=== PATIENT | male | born 1945 | race Caucasian/White ===

== ENCOUNTER → 2016-03-05 07:35 | Day surgery (SDC) | payer MEDICARE, BC ==
[~2016-03-05 07:35] MED LIST: Acetaminophen TAB* 325 MG PO PRN; Buffered Lidocaine 1% SYR 3ML* 3 ML/SYR SYRINGE INTRADERM ONE; Buffered Lidocaine 1% SYR 3ML* 3 ML/SYR SYRINGE ONE; Cyclopentolate 1% OPTH.SOL* 2 ML BTL ONE; Flurbiprofen 0.03% OPTH.SOL* 2.5 ML BTL ONE; Lidocaine 1% MPF* 2 ML VIAL ONE; Lidocaine 2% EPI 1:200000 MPF* 20 ML VIAL ONE; Midazolam* 1 MG/ML 2 ML VIAL (2 MG) ONE; Neomycin/Polymy/Dex OPTH.SUSP* MAXITROL 0.1% 5 ML ONE; Phenylephrine 2.5% OPTH.SOL* 2 ML BTL ONE; Povidone Iodine 5% OPTH* 30 ML BTL ONE; Proparacaine 0.5% OPHTH.SOL* 15 ML BTL ONE; acetaZOLAMIDE TAB* 250 MG ONE; fentaNYL* 50 MCG/ML 2 ML VIAL (100 MCG VIAL) ONE
[2016-03-05 10:55] VITALS: BP 115/65
--- NOTE | 2016-03-05 12:16 | OP ---
DATE OF OPERATION: 03/05/2016 - [facility] DATE OF : 1945. SURGEON: Sj Avelar M.D. PREOPERATIVE DIAGNOSIS: Cataract right eye. POSTOPERATIVE DIAGNOSIS: Cataract right eye. OPERATIVE PROCEDURE: Phacoemulsification right eye with IOL. DESCRIPTION OF PROCEDURE: The patient was brought to the operating room after being given 1/2% Alcaine with epinephrine drops in the preoperative area. The eye was prepped and draped in the usual sterile fashion. Sterile drape and eyelid speculum were placed. Again, topical 1/2% Alcaine with epinephrine was given. A paracentesis incision was made at the 9 o'clock position with the No.75 blade. Clear cornea incision 2.2 x 2.2-mm was created at the 12 o'clock position starting at the anterior limbus using the 2.2-mm keratome. The anterior chamber was irrigated with 0.4 mL of 1% non-preservative intracameral lidocaine and filled with DisCoVisc. A capsulorrhexis was completed using the cystotome and the Utrata forceps. Hydrodissection was performed with balanced salt solution. The lens nucleus was removed with the Phacoemulsification handpiece without incident. Cortex was removed with the irrigation-aspiration handpiece. The capsular bag was re-inflated using DisCoVisc and an [id number] implant was inserted with the shooter. The irrigation-aspiration handpiece was used to remove all residual DisCoVisc. The eye was refilled with balanced salt solution and the wound checked and found to be watertight. Topical Maxitrol drops were given. [id number]/[facility] [place] #: [id number] [facility] HOSPITALDusty
== END | disposition home or self-care (01) ==
LOC: OREAST 07:35
PROVIDERS: ATTEND Specialist
DX: H25.811 Combined forms of age-related cataract, right eye (principal); E11.3293 Type 2 diabetes mellitus with mild nonproliferative diabetic retinopathy without macular edema, bilateral; Z87.891 Personal history of nicotine dependence
CPT/HCPCS: A9270-GY; J2250; J3010; V2632

== ENCOUNTER → 2016-03-12 08:28 | Day surgery (SDC) | payer MEDICARE, BC ==
[~2016-03-12 08:28] MED LIST changes: -Acetaminophen TAB* 325 MG PO PRN; +Lidocaine 2% PF * 5 ML VIAL ONE; -Midazolam* 1 MG/ML 2 ML VIAL (2 MG) ONE; +Propofol* 10 MG/ML 20 ML BTL IV PUSH ONE; -fentaNYL* 50 MCG/ML 2 ML VIAL (100 MCG VIAL) ONE
[2016-03-12 11:32] VITALS: BP 117/46
--- NOTE | 2016-03-12 11:53 | OP ---
DATE OF OPERATION: 03/12/2016. DATE OF : 1945. SURGEON: Sj Avelar M.D. PREOPERATIVE DIAGNOSIS: Cataract left eye. POSTOPERATIVE DIAGNOSIS: Cataract left eye. OPERATIVE PROCEDURE: Phacoemulsification left eye with IOL. PROCEDURE: The patient was brought to the operating room after being given 1/2% Alcaine with epinep hrine drops in the preoperative area. The eye was prepped and draped in the usual sterile fashion. Sterile drape and eyelid speculum were placed. Again, topical 1/2% Alcaine with epinephrine was gi adam. A paracentesis incision was made at the 3 o'clock position with the No.75 blade. Clear cornea incision 2.2 x 2.2-mm was created at the 6 o'clock position starting at the anterior limbus using t he 2.2-mm keratome. The anterior chamber was irrigated with 0.4 mL of 1% non-preservative intracame ral lidocaine and filled with DisCoVisc. A capsulorrhexis was completed using the cystotome and the Utrata forceps. Hydrodissection was performed with balanced salt solution. The lens nucleus was re moved with the Phacoemulsification handpiece without incident. Cortex was removed with the irrigati on-aspiration handpiece. The capsular bag was re-inflated using DisCoVisc and an [id number] implant was inserted with the shooter. The irrigation-aspiration handpiece was used to remove all residual DisCoVisc. The eye was refilled with balanced salt solution and the wound checked and found to be w atertight. Topical Maxitrol drops were given. [id number]/[facility] #: [id number]
== END | disposition home or self-care (01) ==
LOC: OREAST 08:28
PROVIDERS: ATTEND Specialist
DX: H25.812 Combined forms of age-related cataract, left eye (principal); E11.3293 Type 2 diabetes mellitus with mild nonproliferative diabetic retinopathy without macular edema, bilateral; I25.10 Atherosclerotic heart disease of native coronary artery without angina pectoris; Z95.818 Presence of other cardiac implants and grafts; Z87.891 Personal history of nicotine dependence; I48.2 Chronic atrial fibrillation; J44.9 Chronic obstructive pulmonary disease, unspecified; G47.33 Obstructive sleep apnea (adult) (pediatric); N18.9 Chronic kidney disease, unspecified; D64.9 Anemia, unspecified
CPT/HCPCS: A9270-GY; J2704; V2632

== ENCOUNTER 2016-05-07 12:43 | Emergency (ER) | payer MEDICARE, BC ==
[2016-05-07 12:54] VITALS: BP 126/64
[2016-05-07] MEDS ORDERED: Tetan/Diph/Pertus SYR(Tdap)* 0.5 ML SYR(BOOSTRIX) use SYR IM ONE (13:04)
--- NOTE | 2016-05-07 13:09 | ED ---
Head Injury - HPI Summary HPI Summary: 70 y/o male here c/o head contusion after an accidental fall. He reports that he was in a sitting position and he bend over to sisal picker something from the floor when he loss balance and he fell forward landing in his right side of the body. Now he is complaining of abrasions and gauze bump in the right side of the forehead. Also complaints of abrasion in the tight forearm. He denies any LOC. He denies any neck pain. He denies any visual changes, CP, palpitations. He has no other complaints. - History Of Current Complaint Chief Complaint: UCTrauma Stated Complaint: HEAD INJURY Time Seen by Provider: 05/07/16 12:53 Hx Obtained From: Patient Mechanism Of Injury: Fall From Height Of: - Fall from a sitting possition bending forward to sisal picker something from the floor. Onset/Duration: Started Hours Ago Onset of Pain: Immediate Severity Currently: Mild Severity Initially: Mild Pain Scale Used: 0-10 Numeric - 1/10 Location of Head Injury: Frontal - Right forntal areea Character: Sharp, Other: - Burning pain Aggravating Factor(s): Other: - None Alleviating Factor(s): Other: - None Associated Signs And Symptoms: Negative Anticoagulant Therapy: ASA - Allergies/Home Medications Allergies/Adverse Reactions: Allergies Allergy/AdvReac Type Severity Reaction Status Date / Time Clarithromycin [From Biaxin] Allergy Intermediate GI Upset Verified 05/07/16 12: 54 Home Medications: Home Medications Fluticasone HFA 220 mcg(NF) [Flovent Hfa 220 Mcg(NF)] 05/07/16 [History] Ketoconazole (Topical) [Ketoconazole] 2 % EX 05/07/16 [History] Mupirocin 2% CREAM* [Bactroban 2% CREAM*] 05/07/16 [History] PMH/Surg Hx/FS Hx/Imm Hx Endocrine/Hematology History: Reports: Hx Diabetes - ON MEDS, Hx Anemia Denies: Hx Thyroid Disease - BEING MONITORED BY DR. OCONNOR- GREGORY Cardiovascular History: Reports: Hx Congestive Heart Failure, Hx Coronary Artery Disease, Hx Hypertension - ON MEDS, Hx Valvular Heart Disease - aortic valve replacement 12/2009 Denies: Hx Pacemaker/ICD Respiratory History: Reports: Hx Chronic Obstructive Pulmonary Disease (COPD), Hx Pneumonia, Hx Pulmonary Edema - HX OF, Hx Sleep Apnea, Other Respiratory Problems/Disorders - Restrictive lung disease GI History: Reports: Hx Gastroesophageal Reflux Disease, Other GI Disorders - AVM Denies: Hx Jaundice Musculoskeletal History: Reports: Hx Arthritis, Hx Back Problems, Hx Gout Sensory History: Reports: Hx Cataracts - BILATERAL, Hx Contacts or Glasses, Hx Deafness, Hx Hearing Aid, Hx Hearing Problem Opthamlomology History: Reports: Hx Cataracts - BILATERAL, Hx Contacts or Glasses Psychiatric History: Reports: Hx Depression Denies: Hx Panic Disorder - Surgical History Surgery Procedure, Year, and Place: HEART VALVE REPLACEMENT(BOVINE VALVE) AND 2009 STENTS X3(XIENCE V STENTS-STATIC MAGNETIC FIELD 1.5 OR 3T SPATIAL GRADIENT 720G/CMPT WILL BRING CARD); CAROTID ARTERY OPENING UP(NO STENTS) Hx Anesthesia Reactions: No Infectious Disease History: No Infectious Disease History: Denies: Traveled Outside the [place] in Last 30 Days - Social History Alcohol Use: Rare Alcohol Amount: 2 drinks per night vodka liquor Substance Use Type: Reports: None Smoking Status (MU): Never Smoked Tobacco Type: Cigarettes Amount Used/How Often: 2-3 PPD Length of Time of Smoking/Using Tobacco: 12 YEARS Have You Smoked in the Last Year: No Review of Systems Constitutional: Negative Eyes: Negative ENT: Negative Cardiovascular: Negative Respiratory: Negative Gastrointestinal: Negative Genitourinary: Negative Musculoskeletal: Negative Positive: Bruising, Other - Positive 2 areas of superfical skin abrassion in the right forearm and right side of the forehead. Neurological: Negative Psychological: Normal All Other Systems Reviewed And Are Negative: Yes Physical Exam - Summary Physical Exam Summary: VITAL SIGNS: Reviewed. GENERAL: Patient is a well developed and nourished male who is lying comfortable in the stretcher. Patient is not in any acute respiratory distress. He is on a NC with 2 LO2 for his chronic COPD. HEAD AND FACE: No Positive swelling of the right side of the forehead with positive abrassion. No skull depressions. No sinus tenderness. EYES: PERRLA, EOMI x 2, No injected conjunctiva, no nystagmus. EARS: Hearing grossly intact. Ear canals and tympanic membranes are within normal limits. No Hemotympanum. MOUTH: Oropharynx within normal limits. NECK: Supple, trachea is midline, no adenopathy, no JVD, no carotid bruit, no c- spine tenderness, neck with full ROM. CHEST: Symmetric, no tenderness at palpation LUNGS: Clear to auscultation bilaterally. No wheezing or crackles. CVS: Regular rate and rhythm, S1 and S2 present, no murmurs or gallops appreciated. ABDOMEN: Soft, non-tender. No signs of distention. No rebound no guarding, and no masses palpated. Bowel sounds are normal. EXTREMITIES: FROM in all major joints, no edema, no cyanosis or clubbing. NEURO: Alert and oriented x 3. No acute neurological deficits. Speech is normal and follows commands. SKIN: Dry and warm. Positive abrassions in the right forearm. positive multiple small hematomas in both upper extremities secondary to chronic prednisone intake (as per patient) Triage Information Reviewed: Yes Vital Signs On Initial Exam: Initial Vitals Temp Pulse Resp BP Pulse Ox 96.7 F 66 18 126/64 95 05/07/16 12:46 05/07/16 12:46 05/07/16 12:46 05/07/16 12:46 05/07/16 12:46 Vital Signs Reviewed: Yes Diagnostics - Vital Signs Vital Signs Temp Pulse Resp BP Pulse Ox 05/07/16 12:46 96.7 F 66 18 126/64 95 - Laboratory Lab Statement: Any lab studies that have been ordered have been reviewed, and results considered in the medical decision making process. Head Injury Course/Dx Assessment/Plan: 70 y/o male here c/o head contusion after an accidental fall. He reports that he was in a sitting position and he bend over to sisal picker something from the floor when he loss balance and he fell forward landing in his right side of the body. Now he is complaining of abrasions and gauze bump in the right side of the forehead. Also complaints of abrasion in the tight forearm. He denies any LOC. He denies any neck pain. He denies any visual changes, CP, palpitations. He has no other complaints. Head CT impression: No acute intracraneal pathology. C spine impression: Since CT's are found to be wnl patient will be discharged home with f/u of PMD. Hewas instructed to return to the or go the ED if he develops, lethargy, AMS, weakness or any other symptom. All wounds were irrigated with NS bacitacin was applied and bandaged. He was given a tetanous booster. I discussed all the findings and test results with the patient. Patient was instructed to return to the emergency room immediately if any of the symptoms return or worsens. Patient understands and agrees. Plan of care was discussed with the patient and patient understands and agrees with the plan of care. All questions were answered at patient satisfaction. There were no further complaints or concerns. Patient is alert and oriented x 3. Patient vital signs are stable. Patient is to follow up with primary care physician in the next 2 to 3 days. Patient understands and agrees. - Diagnoses Differential Diagnosis/HQI/PQRI: Cerebral Contusion, Cervical Sprain, Concussion Without LOC, Contusion, Hematoma, Intracranial Bleed Provider Diagnoses: Head contusion, Scalp contusion, Abrasions of multiple sites Discharge - Discharge Plan Condition: Stable Disposition: HOME Patient Education Materials: Contusion in Adults (ED), Scalp Contusion in Adults (ED), Ecchymosis (ED) Referrals: Jorje Sanchez MD [Primary Care Provider] -
--- NOTE | 2016-05-07 13:50 | RAD ---
HISTORY: Fall, head trauma COMPARISONS: September 27, 2014 TECHNIQUE: Multiple contiguous axial CT scans were obtained of the head without intravenous contrast. FINDINGS: HEMORRHAGE/INFARCT: There is no hemorrhage or acute infarct. MASSES/SHIFT: There is no mass or shift. EXTRA-AXIAL SPACES: There are no extra-axial fluid collections. SULCI AND VENTRICLES: The sulci and ventricles are normal in size and position for the patient's stated age. CEREBRUM: There are no focal parenchymal abnormalities. BRAINSTEM: There are no focal parenchymal abnormalities. CEREBELLUM: There are no focal parenchymal abnormalities. VESSELS: The vessels are grossly normal. PARANASAL SINUSES: The paranasal sinuses are clear. ORBITS: The orbits are unremarkable. BONES AND SOFT TISSUE: There is soft tissue swelling along the right frontal scalp OTHER: None IMPRESSION: NO ACUTE INTRACRANIAL PATHOLOGY.
--- NOTE | 2016-05-07 14:09 | RAD ---
INDICATION: Fall. Neck pain. COMPARISON: None TECHNIQUE: Noncontrast axial source images was performed from the skull base to the thoracic inlet. Coronal and and sagittal reformatted images were generated. FINDINGS: Vertebrae: There is no fracture or acute focal bony lesion. There are degenerative changes with spurring at C5-C7 and moderate disc space narrowing at C6-C7. There is mild facet arthropathy from C5 through C7. Alignment: The craniocervical junction appears normal. The cervical vertebrae are normally aligned. Central Canal: There are no significant CT abnormalities of the central canal or foramina. MR imaging is a more sensitive method to evaluate the canal and foramina. Intervertebral disc spaces: The remaining disc spaces are maintained. Brain: The visualized brain appears unremarkable. Soft tissues: The visualized soft tissue elements of the neck are unremarkable. The prevertebral soft tissues appear normal. The lung apices are clear. IMPRESSION: MILD OSTEOARTHRITIC CHANGE. NO ACUTE FINDINGS
== END 2016-05-07 14:16 | disposition home or self-care (01) ==
LOC: UCEAST 12:43
DX: S00.03XA Contusion of scalp, initial encounter (principal); S00.83XA Contusion of other part of head, initial encounter; S50.811A Abrasion of right forearm, initial encounter; S00.81XA Abrasion of other part of head, initial encounter; W19.XXXA Unspecified fall, initial encounter; Y93.89 Activity, other specified; Y92.9 Unspecified place or not applicable; M47.812 Spondylosis without myelopathy or radiculopathy, cervical region; Z95.2 Presence of prosthetic heart valve; Z95.5 Presence of coronary angioplasty implant and graft; Z88.1 Allergy status to other antibiotic agents; Z23 Encounter for immunization
CPT/HCPCS: 70450; 72125; 90471; 90715; 99213; G0463

== ENCOUNTER 2017-03-21 10:50 | Inpatient (IN) | payer MEDICARE, BC ==
--- OUTSIDE RECORDS SUMMARY | 2017-03-21 11:02 | XMS REPORT ---
:1945 External Reference #:[id number] Author Organization [facility] Address [address] [place] [address] Phone [phone] Care Team Providers Name Role Phone Jorje Sanchez M.D. Primary Care Physician Unavailable Payers Type Date Identification Numbers Payment Provider Subscriber Medicare Primary Policy Number: [id number] Medicare - NGS Robson Osorio III PayID: [id number] [address] [place] [address] [employer] Policy Number: [id number] BS [place] [employer] Robson Osorio III PayID: [id number] [address] [address] [place] [address] Problems Date Description Provider Status Onset: Type 2 diabetes mellitus Active Onset: Restrictive lung disease Active Onset: Coronary arteriosclerosis Active Onset: Aortic valve disorder Active Onset: Coronary angioplasty Active Onset: Stented coronary artery Active Onset: Hypercholesterolemia Active Onset: Essential hypertension Active Onset: Gout Active Onset: Varicose veins of lower extremity Active Onset: Hearing aid worn Active Onset: Hearing loss Active Onset: 02/01/2016 Combined form of senile cataract Sj Avelar M.D. Active Onset: 02/01/2016 Type 2 diab with mild nonp rtnop Sj Avelar M.D. Active without macular edema, bi Onset: 03/06/2016 Presence of intraocular lens Sj Avelar M.D. Active Onset: 04/04/2016 Corneal edema Karie Valenzuela O.D. Active Onset: 04/09/2016 Secondary corneal edema Gisela Caraballo O.D. Active Onset: 09/15/2016 Vitreous degeneration Sj Avelar M.D. 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 ETOH Use Denies alcohol use Smoking Patient is a former smoker Recreational Drug Use Denies Drug Use Daily Caffeine 3-4 glasses iced tea daily Allergies, Adverse Reactions, Alerts Date Description Reaction Status Severity Comments 02/01/2016 Biaxin active Medications Medication Date Status Form Strength Qnty SIG Indications Ordering Provider Allopurinol Active Tablets 100mg Take Two Unknown /0000 Tablets By Mouth Every Day Atorvastatin Active Tablets 80mg Take One Unknown Calcium /0000 Tablet By Mouth Every Day Metoprolol Active Tablets 50mg Unknown Tartrate /0000 Calcitriol Active Capsules 0.25mcg Unknown /0000 Ipratropium Active Solution 0.06% Unknown [place] /0000 Flovent HFA Active Aerosol 220mcg/Ac Inhale 2 Unknown /0000 t Puffs By Mouth Two Times A Day Omeprazole Active Capsules DR 20mg Take One Unknown /0000 Capsule By Mouth Every Day Prednisone Active Tablets 1mg Take Three Unknown /0000 Tablets By Mouth Every Day Vitamin D Active Tablets 2000Unit Take One Unknown /0000 Tablet By Mouth Every Day Mometasone Active Suspension 50mcg/Act Unknown Furoate /0000 Combivent Active Aerosol 20-100mcg Unknown Respimat /0000 /Act Citalopram Active Tablets 20mg Take One Unknown Hydrobromide /0000 Tablet By Mouth Every Day Spironolactone Active Tablets 25mg Take One Unknown /0000 Tablet By Mouth Every Day Glipizide Active Tablets 5mg Take 2 Unknown /0000 Tablets By Mouth In The Morning And 1 In The Evening Torsemide Active Tablets 20mg Take One Unknown /0000 Tablet By Mouth Twice A Day Ketoconazole Active Shampoo 2% Apply as Unknown /0000 Directed Amoxicillin Active Capsules 500mg prophylactic Unknown /0000 prior to dental work - prosthetic heart valve Metolazone 00 Active Tablets 2.5mg Unknown /0000 Vitamin C Active Chewtabs 500mg Unknown / Azelastine HCL Active Solution 0.15% Unknown (Nasal) /[address] 81mg Unknown / Iron Active Tablets 325(65Fe) Unknown / mg Folic Acid Active Tablets 400mcg Unknown / Vitamin B1 00 Active Tablets 100mg Unknown / Senna Active Tablets 8.6mg Unknown /0000 Lantus Solostar Active Solution 100Unit/M Inject 10 Unknown Pen-Inject L Units Under The Skin Daily Delmi 128 04/07 Hx Ointment 5% 7gm both eyes Karie K. /2016 every night Caro Valenzuela O.D. 09/14 Systane 03/05 Hx Solution 0.4-0.3% 1 drop both Sj Mcclendon Preservative /2016 eyes daily - [place], Free - as needed M.D. 09/14 Ciprofloxacin 02/04 Hx Solution 0.3% 10ml instill one Sj JTita HCL /2015 drop in the [place], - right eye M.D. 03/27 three times a day, start the day before surgery Ketorolac 02/04 Hx Solution 0.5% 10ml use one drop Sj Mcclendon Tromethamine in the right [place], - eye three M.D. 03/27 times a day, start the day before surgery Prednisolone 02/04 Hx Suspension 1% 15ml 1 drops Sj Mcclendon Acetate /2015 right eye [place], - three times M.D. 02 a day. as directed Santyl Hx Ointment 250Unit/G Apply Unknown /0000 M Topically - Daily 01/30 Onetouch Ultra 00 Hx Strips Test Two Unknown Blue /0000 Times A Day - 01/30 Doxycycline 00 Hx Capsules 100mg Unknown Hyclate / - 01/30 Oxycodone HCL Hx Tablets 5mg Unknown /0000 - 01/30 Mupirocin Hx Ointment 2% Unknown / - 03/05 Cephalexin Hx Capsules 500mg Unknown /0000 - 01/30 Prednisone 00 Hx Tablets 5mg Unknown /0000 - 01/30 Clindamycin HCL 00 Hx Capsules 150mg Unknown - 01/30 Tylenol Hx Tablets ER 650mg Unknown Arthritis Pain /0000 - 03/05 Amoxicillin/Cla Hx Tablets 875-125mg Unknown vulanate / Potassium - 03/05 Prednisolone Hx Suspension 1% 1 drops Left Unknown Acetate Eye 3X/Day - For 3 Days, 04/18 2X/Day For Days, 1X/Day For 3Days Then Stop Results Description No Information Procedures Date CPT Code Description Status 09/15/2016 58489 Est Patient Intermediate Exam Completed 03/12/2016 11482 Extracapsular Cataract Extraction W/Intraocular Lens Completed 03/05/2016 38472 Extracapsular Cataract Extraction W/Intraocular Lens Completed 02/05/2016 63646 Ophthalmic Biometry Completed 02/05/2016 19041 Ophthalmic Biometry Completed 02/05/2016 30524 Computerized Corneal Topography Completed 02/01/2016 67235 Scanning Computerized Opthalmic Diagnostic Posterior Completed Seg Retina 02/01/2016 13362 New Patient Comprehensive Exam Completed Encounters Type Date Location Provider CPT E/M Dx Office Visit 04/07/2016 Sj Avelar MD, Karie Valenzuela O.D. 30579 H18.20 10:15a pc Office Visit 04/04/2016 Sj Avelar MD, Karie Valenzuela O.D. 66506 H18.20 2:15p pc Office Visit 02/05/2016 Sj Avelar MD, Sj Avelar, 47935 H25.811 9:30a helene Mejía H25.812 E11.3293 Plan of Care 03/20/2017 - Sj Avelar M.D.E11.3293 Type 2 diab with mild nonp rtnop without macular edema, biComments:Smoking can increase the risk of developing or worsening any eye related disease, as well as affect your overall health. If you are a smoker, we strongly recommend that you quit.If you are not a smoker , we strongly recommend that you do not start. I can detect diabetic changes in your eyes. Proper control of your diabetes is important for the health of your eyes. It is important that you keep all of your follow up appointments. Dr. Avelar has sent a report to your primary care doctor, letting them know the current status of your retina.Follow up:1 Year Follow Up OCT MAC You can expect to have your eyes dilated at your next visit. If Dr. Avelar orders any additional testing, it may require extra time. We recommend that you bring sunglasses, as dilation drops often make you light sensitive until they wear off. We always recommend you bring someone to drive you home if you are uncomfortable driving with your eyes dilated. If you have any questions before your next visit, feel free to call our office at .[phone] Vitreous degeneration, bilateralComments:You have a Posterior Vitreous Detachment. If you have any changes in your floaters or flashing lights, please contact this office.Z96.1 Presence of intraocular lensComments:The artificial lens implants in both eyes appear to be stable at this time.
[2017-03-21 11:55] LABS: ABS Basophils 0 10^3/ul (0-0.2); ABS Eosinophils 0.2 10^3/ul (0-0.6); ABS Lymphocytes 0.5 10^3/ul (1.0-4.8); ABS Monocytes 0.6 10^3/ul (0-0.8); ABS Neutrophils 15.5 10^3/ul (1.5-7.7); ABS Nucleated RBC 0 10^3/ul; Hematocrit 29 % (42-52); Hemoglobin 9.5 g/dl (14.0-18.0); Lymphocyte % 2.8 % (25-47); Mean Corpuscular HGB Conc 33 g/dl (31-36); Mean Corpuscular Hemoglobin 31 pg (27-31); Mean Corpuscular Volume 93 fL (80-94); Mean Platelet Volume 8 um3 (7.4-10.4); Nucleated Red Blood Cells % 0; Platelet Count 178 10^3/ul (150-450); Red Blood Count 3.11 10^6/ul (4.0-5.4); Red Cell Distribution Width 17 % (10.5-15); White Blood Count 16.7 10^3/ul (3.5-10.8)
[2017-03-21 12:04] LABS: Urine Appearance Clear; Urine Blood Negative (Negative); Urine Color Straw; Urine Ketones Negative (Negative); Urine Protein Negative (Negative); Urine Specific Gravity 1.011 (1.010-1.030); Urine Urobilinogen Negative (Negative)
[2017-03-21 12:10] LABS: EGFR Non-African American 23.9 (>60)
--- NOTE | 2017-03-21 12:10 | RAD ---
HISTORY: Fall, head trauma COMPARISONS: May 07, 2016 TECHNIQUE: Multiple contiguous axial CT scans were obtained of the head without intravenous contrast. FINDINGS: HEMORRHAGE/INFARCT: There is no hemorrhage or acute infarct. MASSES/SHIFT: There is no mass or shift. EXTRA-AXIAL SPACES: There are no extra-axial fluid collections. SULCI AND VENTRICLES: There is diffuse and proportional enlargement of the sulci and ventricles. CEREBRUM: There is hypoattenuation of the periventricular and subcortical white matter. BRAINSTEM: There are no focal parenchymal abnormalities. CEREBELLUM: There are no focal parenchymal abnormalities. VESSELS: The vessels are grossly normal. PARANASAL SINUSES: The paranasal sinuses are clear. ORBITS: The orbits are unremarkable. BONES AND SOFT TISSUE: No bone or soft tissue abnormalities are noted. OTHER: None IMPRESSION: NO ACUTE INTRACRANIAL PATHOLOGY. DIFFUSE INVOLUTIONAL CHANGE WITH CHRONIC SMALL VESSEL ISCHEMIC CHANGES.
--- NOTE | 2017-03-21 12:15 | RAD ---
HISTORY: Fall, head trauma COMPARISONS: None TECHNIQUE: Multiple contiguous axial CT scans were obtained of the cervical spine without intravenous contrast, with coronal and sagittal multiplanar reformations. FINDINGS: BRAIN: The visualized brain is unremarkable CENTRAL CANAL: Evaluation of the central canal is limited on CT technique, however there is no obvious canalicular mass or epidural hemorrhage. ALIGNMENT: There is straightening of the normal cervical lordosis. VERTEBRAL BODIES: There is no displaced fracture. There is mild anterolateral marginal osteophyte formation. JOINTS: There is multilevel uncovertebral and facet osteoarthritic change. MUSCULATURE: Unremarkable INTERVERTEBRAL DISCS: There is diffuse loss of intervertebral disc height. AXIAL IMAGES: There is uncovertebral and facet osteoarthritis. There is moderate left neural foraminal narrowing at C3-C4. There is no osseous central canal stenosis. SOFT TISSUES: The visualized soft tissues of the neck are unremarkable. The prevertebral fat stripe is preserved. OTHER: None. IMPRESSION: DEGENERATIVE DISC DISEASE AND OSTEOARTHRITIS. NO ACUTE OSSEOUS INJURY TO THE CERVICAL SPINE
--- NOTE | 2017-03-21 13:03 | RAD ---
HISTORY: Fall, left hip pain COMPARISONS: None VIEWS: 4, Frontal view of the pelvis with frontal and erosive lateral views of the left hip FINDINGS: BONE DENSITY: Normal. BONES: There is impacted subcapital femoral neck fracture on the left. There is no significant displacement. JOINTS: There is mild osteoarthritis of the hips and SI joints bilaterally. ALIGNMENT: There is no dislocation. SOFT TISSUES: There is peripheral arterial calcification. OTHER FINDINGS: Degenerative changes are noted of the spine. IMPRESSION: IMPACTED SUBCAPITAL FEMORAL NECK FRACTURE ON THE LEFT.
--- NOTE | 2017-03-21 13:04 | RAD ---
HISTORY: Fall, hip fracture COMPARISONS: September 27, 2014 VIEWS: 1: frontal portable view of the chest at 12:56 PM FINDINGS: LINES AND TUBES: None. CARDIOMEDIASTINAL SILHOUETTE: The cardiomediastinal silhouette is normal for portable technique. PLEURA: The costophrenic angles are sharp. No pleural abnormalities are noted. LUNG PARENCHYMA: The lung volumes are low. ABDOMEN: The upper abdomen is clear. There is no subphrenic gas. BONES AND SOFT TISSUES: The patient is status post median sternotomy. IMPRESSION: LOW LUNG VOLUMES. NO ACTIVE CARDIOPULMONARY DISEASE.
[2017-03-21] MEDS ORDERED: Heparin VIAL(*) 5000 UNITS/ML VIAL (FIVE THOUSAND) SUBCUT SCH (14:00)
[2017-03-21] MEDS ORDERED: Acetaminophen TAB* 325 MG PO PRN (14:08)
[2017-03-21] MEDS ORDERED: oxyCODONE/Acetamin 5/325 MG* TAB PO PRN (14:09)
[2017-03-21] MEDS ORDERED: Dextrose 50% Syringe 50 ML* 25 GM/50 ML SYRINGE IV PUSH PRN (14:27)
[2017-03-21] MEDS ORDERED: Albuterol/Ipratropium NEB.SOL* Albuterol 2.5 MG/Ipratropium 0.5 MG 3 ML INH PRN (14:28)
--- NOTE | 2017-03-21 15:28 | RAD ---
HISTORY: Left hip pain COMPARISONS: March 21, 2017 VIEWS: 7, frontal and crosstable lateral views of the left femur. FINDINGS: BONE DENSITY: Normal. BONES: Again noted is an impacted subcapital femoral neck fracture. JOINTS: There is no arthropathy. ALIGNMENT: There is no dislocation. SOFT TISSUES: Unremarkable. OTHER FINDINGS: None. IMPRESSION: LIMITED STUDY. AGAIN NOTED IS AN IMPACTED SUBCAPITAL FEMORAL NECK FRACTURE.
[2017-03-21] MEDS: Insulin LISPRO* 1 UNITS UNIT SUBCUT SCH (16:53)
[2017-03-21] MEDS: Citalopram TAB* 20 MG PO SCH (17:31)
[2017-03-21] MEDS: oxyCODONE/Acetamin 5/325 MG* TAB PO PRN ×2 (17:31→22:18)
[2017-03-21] MEDS: Atorvastatin* 80 MG TAB PO SCH (17:31)
--- NOTE | 2017-03-21 18:01 | ED ---
Marjan Cevallos Edward, scribed for Alex Perez MD on 03/21/17 at 1101 . Adult Trauma - HPI Summary HPI Summary: 71 y/o male BIBA c/o lower back and L hip pain s/p fall last night at around 21: 00. The pain is aggravated with walking. Pt was going down the stairs on his machine when he fell. Pt hit his head during the fall. Associated sx: ecchymosis @ L ear and L shoulder. No LOC. PT takes baby aspirin currently. - History of Current Complaint Stated Complaint: FALL Time Seen by Provider: 03/21/17 10:56 Hx Obtained From: Patient Mechanism of Injury: Fall Loss of Consciousness: no loss of consciousness Onset/Duration: Started Hours Ago Location: Head - L ear, Back, Extremities - L shoulder, Other - L hip Aggravating Factor(s): Ambulation Alleviating Factor(s): Nothing Associated Signs & Symptoms: Positive: Ecchymosis - L ear and L shoulder. Negative: Loss of Consciousness - Additional Pertinent History Primary Care Physician: ROWAN - Allergy/Home Medications Allergies/Adverse Reactions: Allergies Allergy/AdvReac Type Severity Reaction Status Date / Time Clarithromycin [From Biaxin] Allergy Intermediate GI Upset Verified 03/21/17 11: 55 Home Medications: Home Medications Insulin GLARGINE(*) [Lantus(*)] 25 units SUBCUT .BEDTIME 03/21/17 [History Confirmed 03/21/17] Torsemide TAB* [Demadex 20 MG*] 20 mg PO BID 03/21/17 [History Confirmed ] Xylitol (Mouth-Throat) [Xylimelts/Mint Free] 1 tab PO QID 03/21/17 [History Confirmed 03/21/17] PMH/Surg Hx/FS Hx/Imm Hx Previously Healthy: No Endocrine/Hematology History: Reports: Hx Diabetes - ON MEDS, Hx Anemia Denies: Hx Thyroid Disease - BEING MONITORED BY DR. OCONNOR- GREGORY Cardiovascular History: Reports: Hx Congestive Heart Failure, Hx Coronary Artery Disease, Hx Hypertension - ON MEDS, Hx Valvular Heart Disease - aortic valve replacement 12/2009 Denies: Hx Pacemaker/ICD Respiratory History: Reports: Hx Chronic Obstructive Pulmonary Disease (COPD), Hx Pneumonia, Hx Pulmonary Edema - HX OF, Hx Sleep Apnea, Other Respiratory Problems/Disorders - Restrictive lung disease GI History: Reports: Hx Gastroesophageal Reflux Disease, Other GI Disorders - AVM Denies: Hx Jaundice Musculoskeletal History: Reports: Hx Arthritis, Hx Back Problems, Hx Gout Sensory History: Reports: Hx Cataracts - BILATERAL, Hx Contacts or Glasses, Hx Deafness, Hx Hearing Aid, Hx Hearing Problem Opthamlomology History: Reports: Hx Cataracts - BILATERAL, Hx Contacts or Glasses Psychiatric History: Reports: Hx Depression Denies: Hx Panic Disorder - Surgical History Surgery Procedure, Year, and Place: HEART VALVE REPLACEMENT(BOVINE VALVE) AND 2009 STENTS X3(XIENCE V STENTS-STATIC MAGNETIC FIELD 1.5 OR 3T SPATIAL GRADIENT 720G/CMPT WILL BRING CARD); CAROTID ARTERY OPENING UP(NO STENTS) Hx Anesthesia Reactions: No Infectious Disease History: Denies: Traveled Outside the [place] in Last 30 Days - Social History Alcohol Use: Rare Alcohol Amount: 2 drinks per night vodka liquor Substance Use Type: Reports: None Smoking Status (MU): Never Smoked Tobacco Type: Cigarettes Amount Used/How Often: 2-3 PPD Length of Time of Smoking/Using Tobacco: 12 YEARS Have You Smoked in the Last Year: No Review of Systems Constitutional: Negative Eyes: Negative ENT: Negative Cardiovascular: Negative Respiratory: Negative Gastrointestinal: Negative Genitourinary: Negative Positive: Arthralgia - Lower back pain, L hip pain Positive: Bruising - L ear and L shoulder Neurological: Negative Psychological: Normal All Other Systems Reviewed And Are Negative: Yes Physical Exam - Summary Physical Exam Summary: VITAL SIGNS: Reviewed. GENERAL: Patient is a well-developed and nourished male who is lying comfortable in the stretcher. Patient is not in any acute respiratory distress. HEAD AND FACE: No signs of trauma. No ecchymosis, hematomas or skull depressions. No sinus tenderness. EYES: PERRLA, EOMI x 2, No injected conjunctiva, no nystagmus. EARS: Hearing grossly intact. Ear canals and tympanic membranes are within normal limits. MOUTH: Oropharynx within normal limits. NECK: Supple, trachea is midline, no adenopathy, no JVD, no carotid bruit, no c- spine tenderness, neck with full ROM. CHEST: Symmetric, no tenderness at palpation LUNGS: Clear to auscultation bilaterally. No wheezing or crackles. CVS: Regular rate and rhythm, S1 and S2 present, no murmurs or gallops appreciated. ABDOMEN: Soft, non-tender. No signs of distention. No rebound no guarding, and no masses palpated. Bowel sounds are normal. EXTREMITIES: Decreased ROM @ L hip secondary to pain. Full ROM @ L shoulder with no deformities. NEURO: Alert and oriented x 3. No acute neurological deficits. Speech is normal and follows commands. SKIN: Dry and warm. Ecchymosis @ L shoulder. L ear hematoma. There are multiple bruises all over the patient's body. Triage Information Reviewed: Yes Vital Signs On Initial Exam: Initial Vitals BP 118/55 03/21/17 11:03 Vital Signs Reviewed: Yes Diagnostics - Vital Signs Vital Signs Temp Pulse Resp BP Pulse Ox 03/21/17 15:12 73 92 03/21/17 14:30 52 17 112/51 97 03/21/17 14:00 73 21 109/57 97 03/21/17 13:36 103/45 03/21/17 13:30 74 18 97 03/21/17 13:00 76 21 96 03/21/17 12:30 22 03/21/17 12:16 62 18 96 03/21/17 12:14 112/52 03/21/17 11:30 72 20 118/52 95 03/21/17 11:05 65 21 92 03/21/17 11:04 98.8 F 98 24 118/55 94 03/21/17 11:03 118/55 - Laboratory Lab Results: Lab Results 03/21/17 03/21/17 03/21/17 Range/Units 11:41 11:41 11:41 WBC 16.7 H (3.5-10.8) 10^3/ul RBC 3.11 L (4.0-5.4) 10^6/ul Hgb 9.5 L (14.0-18.0) g/dl Hct 29 L (42-52) % MCV 93 (80-94) fL MCH 31 (27-31) pg MCHC 33 (31-36) g/dl RDW 17 H (10.5-15) % Plt Count 178 (150-450) 10^3/ul MPV 8 (7.4-10.4) um3 Neut % (Auto) 92.5 H (38-83) % Lymph % (Auto) 2.8 L (25-47) % Coleman % (Auto) 3.4 (1-9) % Eos % (Auto) 1.0 (0-6) % Baso % (Auto) 0.3 (0-2) % Absolute Neuts (auto) 15.5 H (1.5-7.7) 10^3/ul Absolute Lymphs (auto) 0.5 L (1.0-4.8) 10^3/ul Absolute Monos (auto) 0.6 (0-0.8) 10^3/ul Absolute Eos (auto) 0.2 (0-0.6) 10^3/ul Absolute Basos (auto) 0 (0-0.2) 10^3/ul Absolute Nucleated RBC 0 10^3/ul Nucleated RBC % 0 Sodium 136 (133-145) mmol/L Potassium 4.7 (3.5-5.0) mmol/L Chloride 98 L (101-111) mmol/L Carbon Dioxide 30 (22-32) mmol/L Anion Gap 8 (2-11) mmol/L BUN 101 H (6-24) mg/dL Creatinine 2.65 H (0.67-1.17) mg/dL Est GFR ( Amer) 30.8 (>60) Est GFR (Non-Af Amer) 23.9 (>60) BUN/Creatinine Ratio 38.1 H (8-20) Glucose 153 H (70-100) mg/dL Calcium 10.6 H (8.6-10.3) mg/dL Total Bilirubin 0.40 (0.2-1.0) mg/dL AST 27 (13-39) U/L ALT 19 (7-52) U/L Alkaline Phosphatase 56 (34-104) U/L Total Protein 6.8 (6.4-8.9) g/dL Albumin 3.7 (3.2-5.2) g/dL Globulin 3.1 (2-4) g/dL Albumin/Globulin Ratio 1.2 (1-3) Urine Color Urine Appearance Urine pH (5-9) Ur Specific [place] (1.010-1.030) Urine Protein (Negative) Urine Ketones (Negative) Urine Blood (Negative) Urine Nitrate (Negative) Urine Bilirubin (Negative) Urine Urobilinogen (Negative) Ur Leukocyte Esterase (Negative) Urine Glucose (Negative) Urine Ascorbic Acid (Negative) Influenza A (Rapid) (Negative) Influenza B (Rapid) (Negative) Blood Type B Positive Antibody Screen Negative 03/21/17 03/21/17 Range/Units 11:41 13:48 WBC (3.5-10.8) 10^3/ul RBC (4.0-5.4) 10^6/ul Hgb (14.0-18.0) g/dl Hct (42-52) % MCV (80-94) fL MCH (27-31) pg MCHC (31-36) g/dl RDW (10.5-15) % Plt Count (150-450) 10^3/ul MPV (7.4-10.4) um3 Neut % (Auto) (38-83) % Lymph % (Auto) (25-47) % Coleman % (Auto) (1-9) % Eos % (Auto) (0-6) % Baso % (Auto) (0-2) % Absolute Neuts (auto) (1.5-7.7) 10^3/ul Absolute Lymphs (auto) (1.0-4.8) 10^3/ul Absolute Monos (auto) (0-0.8) 10^3/ul Absolute Eos (auto) (0-0.6) 10^3/ul Absolute Basos (auto) (0-0.2) 10^3/ul Absolute Nucleated RBC 10^3/ul Nucleated RBC % Sodium (133-145) mmol/L Potassium (3.5-5.0) mmol/L Chloride (101-111) mmol/L Carbon Dioxide (22-32) mmol/L Anion Gap (2-11) mmol/L BUN (6-24) mg/dL Creatinine (0.67-1.17) mg/dL Est GFR ( Amer) (>60) Est GFR (Non-Af Amer) (>60) BUN/Creatinine Ratio (8-20) Glucose (70-100) mg/dL Calcium (8.6-10.3) mg/dL Total Bilirubin (0.2-1.0) mg/dL AST (13-39) U/L ALT (7-52) U/L Alkaline Phosphatase (34-104) U/L Total Protein (6.4-8.9) g/dL Albumin (3.2-5.2) g/dL Globulin (2-4) g/dL Albumin/Globulin Ratio (1-3) Urine Color Straw Urine Appearance Clear Urine pH 5.0 (5-9) Ur Specific [place] 1.011 (1.010-1.030) Urine Protein Negative (Negative) Urine Ketones Negative (Negative) Urine Blood Negative (Negative) Urine Nitrate Negative (Negative) Urine Bilirubin Negative (Negative) Urine Urobilinogen Negative (Negative) Ur Leukocyte Esterase Negative (Negative) Urine Glucose Negative (Negative) Urine Ascorbic Acid * H (Negative) Influenza A (Rapid) Negative (Negative) Influenza B (Rapid) Negative (Negative) Blood Type Antibody Screen Result Diagrams: 03/21/17 11:41 03/21/17 11:41 Lab Statement: Any lab studies that have been ordered have been reviewed, and results considered in the medical decision making process. - Radiology CXR Xray Interpretation: No Acute Changes - LOW LUNG VOLUMES. NO ACTIVE CARDIOPULMONARY DISEASE. Radiology Interpretation Completed By: Radiologist HIP/PELVIS XR Xray Interpretation: Positive (See Comments) - IMPACTED SUBCAPITAL FEMORAL NECK FRACTURE ON THE LEFT Radiology Interpretation Completed By: Radiologist - ED PHYSICIAN REVIEWS AND AGREES - CT CSPINE CT CT Interpretation: No Acute Changes - DEGENERATIVE DISC DISEASE AND OSTEOARTHRITIS. NO ACUTE OSSEOUS INJURY TO THE CERVICAL SPINE CT Interpretation Completed By: Radiologist - ED PHYSICIAN REVIEWS AND AGREES BRAIN CT CT Interpretation: No Acute Changes - NO ACUTE INTRACRANIAL PATHOLOGY. DIFFUSE INVOLUTIONAL CHANGE WITH CHRONIC SMALL VESSEL ISCHEMIC CHANGES. CT Interpretation Completed By: Radiologist - ED PHYSICIAN REVIEWS AND AGREES - EKG 1 EKG Interpretation: 11:22 - AFIB @ [address] elevations. Similar to . Adult Trauma Course/Dx - Course Assessment/Plan: 71 y/o male BIBA c/o lower back and L hip pain s/p fall last night at around 21:00. The pain is aggravated with walking. Pt was going down the stairs on his machine when he fell. Pt hit his head during the fall. Associated sx: ecchymosis @ L ear and L shoulder. No LOC. PT takes baby aspirin currently. EKG @ 11:22 - AFIB @ [address] elevations. Similar to 09/27/14. CT SPINE SHOWS DEGENERATIVE DISC DISEASE AND OSTEOARTHRITIS. NO ACUTE OSSEOUS INJURY TO THE CERVICAL. SPINE. BRAIN CT SHOWS NO ACUTE INTRACRANIAL PATHOLOGY. DIFFUSE INVOLUTIONAL CHANGE WITH CHRONIC SMALL VESSEL ISCHEMIC CHANGES. CXR SHOWS LOW LUNG VOLUMES. NO ACTIVE CARDIOPULMONARY DISEASE. HIP/PELVIS XR SHOWS IMPACTED SUBCAPITAL FEMORAL NECK FRACTURE ON THE LEFT. Test results show WBC 16.7 with slight anemia, chronic renal failure. UA (-) UTI. Influenza a and b negative. It seems the pt has a hip fracture on the l side. I discussed with Dr. Robertson who agrees to consult for the pt. I discussed with Elizabeth Malave, the MEDICARE SALES REPRESENTATIVE who works with Dr. Hairston, who agreed to admit to his services. The pt is hemodynamically stable, A&Ox3. - Diagnoses Differential Diagnosis/HQI/PQRI: Positive: Contusion(s), Fracture, Sprain, Strain Provider Diagnoses: Subcapital fracture of neck of left femur - Physician Notifications Discussed Care Of Patient With: Jorje Robertson Time Discussed With Above Provider: 13:30 Instructed by Provider To: Admit As Inpatient - admitted to Dr. Hairston Discharge - Discharge Plan Condition: Stable Disposition: ADMITTED TO [facility] documentation as recorded by the Marjan prince Edward accurately reflects the service I personally performed and the decisions made by , Alex Perez MD.
[2017-03-21] MEDS ORDERED: METOLAZONE 2.5 MG PO SCH (21:00)
[2017-03-21] MEDS ORDERED: Torsemide TAB* 20 MG PO SCH (21:00)
--- NOTE | 2017-03-21 21:43 | HP ---
CC: Dr. Sanchez * [facility] MEDICINE HISTORY AND PHYSICAL: DATE OF ADMISSION: 03/21/17 PRIMARY CARE PHYSICIAN: Dr. Sanchez. ATTENDING PHYSICIAN: Dr. Reggie Hairston * (dictation provided by Elizabeth Malave NP) CHIEF COMPLAINT: Fall with hip and back pain. HISTORY OF PRESENT ILLNESS: Mr. Osorio is a 71-year-old male with a past medical history of severe pulmonary hypertension, aortic valve replacement in 2010, history of coronary artery disease with stent versus 1-vessel CABG ( family unclear), and diabetes, who presents today to the hospital with concern for pain after a fall. Mr. Osorio states he has been in his normal state of health when last night about 9 p.m., he had a trip and fall. He states this was a purely mechanical fall and he did not lose consciousness. He lay on the floor from 9 p.m. until midnight when he was helped up by his daughter and into the bed. He states he had excruciating pain with ambulation, but he was able to do so with a walker. In the morning, he continued to have pain and therefore came to the emergency room for evaluation. In the emergency room, Mr. Osorio had a hip and pelvis x-ray, which showed an impacted subcapital femoral neck fracture on the left. He had a CT brain that showed no acute abnormality. He had a cervical spine CT, which showed no acute abnormality. His labs were remarkable for acute on chronic kidney disease and leukocytosis with a white blood cell count of 16.7. His vital signs were stable. Mr. Osorio states that prior to this fall that he has not been very ambulatory. He states the limiting factor is weakness in his legs, which he and his attribute to very poor circulation bilaterally. He reports that he does not get out and walk around too much, though he from time to time will go shopping in a store. His notes that he is not able to make it very far before he needs to rest. He does not have any chest pain or shortness of breath, but again is limited by leg weakness. His last evaluation was with his record systems analyst , Dr. Griffin, in September at which time he had an echocardiogram that per the showed there was improvement in his overall function and the plan was to continue the current regimen. I will note that the patient did have orthopedic surgery with Dr. Jett with amputation of left third toe back in 2016 and there was no report of complications during that surgery. PAST MEDICAL HISTORY: 1. Severe pulmonary hypertension. 2. Mitral valve regurgitation. 3. History of severe AR, status post aortic valve replacement approximately in 2010. 4. AFib. 5. Hypertension. 6. Hyperlipidemia. 7. Coronary artery disease with question of stent versus 1-vessel CABG (family unclear). 8. Yby-kuqkbgb-lkyrdjend diabetes. 9. Anemia. 10. History of carotid endarterectomy. 11. CKD, stage 3 to 4. MEDICATIONS: 1. Acetaminophen 650 mg p.o. daily p.r.n. 2. Amoxicillin as needed. 3. Aspirin 81 mg p.o. q.a.m. 4. Azelastine 1 spray both nares as needed. 5. Fluticasone 2 puffs inhaled b.i.d. 6. Folic acid 400 mcg p.o. q.a.m. 7. Glipizide 5 mg p.o. b.i.d. 8. Lantus insulin 25 units subcutaneously at bedtime. 9. Ipratropium nasal spray both nares daily. 10. Combivent inhaler 1 puff inhaled 4 times a day. 11. Ketoconazole as directed. 12. Mometasone nasal spray b.i.d. 13. Sennosides 1 tab p.o. b.i.d. 14. Thiamine 100 mg p.o. q.a.m. 15. Torsemide 20 mg p.o. b.i.d. 16. Xylitol mouth lozenges 1 tab p.o. four times a day. 17. Allopurinol 200 mg p.o. q.a.m. 18. Ascorbic acid 500 mg p.o. q.a.m. 19. Atorvastatin 80 mg p.o. q.p.m. 20. Calcitriol 0.25 mcg p.o. every other day. 21. Cholecalciferol 2000 units p.o. q.a.m. 22. Citalopram 20 mg p.o. q.a.m. 23. Ferrous sulfate 650 mg p.o. q.a.m. 24. Metolazone 2.5 mg p.o. b.i.d. 25. Metoprolol tartrate 50 mg p.o. b.i.d. 26. Omeprazole 20 mg p.o. q.a.m. 27. Spironolactone 25 mg p.o. q.a.m. ALLERGIES: To CLARITHROMYCIN. FAMILY HISTORY: The patient reports his mother with hypertension. Dad had a stroke and cancer. SOCIAL HISTORY: The patient is a former smoker. He quit almost 30 years ago. He likely has about 51-ooma-jliu history. He drinks 1 gin and tonic per day. No report of drug use. He lives with his , Xochitl, who is his healthcare proxy. Her cell phone number is [phone]. REVIEW OF SYSTEMS: A 14-point review of systems was completed with Mr. Osorio and all those not mentioned above were negative. PHYSICAL EXAMINATION GENERAL: Mr. Osorio is lying in the bed. He is in no acute distress. VITAL SIGNS: Temperature 98.8, pulse rate 64, respiratory rate 18, O2 saturation 97% on room air, blood pressure 112/52. LUNGS: Clear to auscultation bilaterally with no accessory muscle use and good aeration. HEART: S1, S2. No murmur, rub, or gallop is appreciated. ABDOMEN: Soft, nontender with bowel sounds positive x4. EXTREMITIES: No cyanosis or edema. NEURO: He is alert. He is oriented x3. He moves all extremities equally. There is no facial asymmetry or focal weakness. Extraocular movements are intact. SKIN: Intact, but the patient has multiple ecchymoses all over both upper extremities and notably to his entire left ear. DIAGNOSTIC STUDIES/LAB DATA: Sodium 136, potassium 4.7, chloride 98, serum bicarbonate 30, BUN 101, creatinine 2.65, glucose 153. WBC 16.7, hemoglobin 9.5 , hematocrit 29, platelet count 178. Urine shows no evidence of infection. Flu swab is negative. Hip/pelvis x-ray, brain CT, and cervical spine CT, and chest x-ray all as read above. EKG shows atrial fibrillation with left anterior and what appears to be a new right bundle branch block. ASSESSMENT AND PLAN: Mr. Osorio is a 71-year-old male with a past medical history of coronary artery disease, aortic valve replacement, severe pulmonary hypertension, cbf-beakahu-epezvzyzk diabetes, who presents today to the hospital with concern for a fall, now found to have a left hip fracture. Our plans are for inpatient admission for the followin. Left hip fracture: Management will be per Orthopedics. Dr. Robertson has been called by the emergency room physicians. The patient has multiple risk factors for complications during surgery, most notably his severe pulmonary hypertension. I have ordered a transthoracic echocardiogram and think it is important to review that prior to proceeding to surgery in order to better manage his perioperative course. No further cardiac testing would be indicated. I note that the patient has acute on chronic renal injury and we are adjusting his diuretics. Plan to work with the orthopedic and anesthesiology team to clear the patient for surgery as soon as possible. 2. Acute on chronic kidney disease: This is the highest creatinine and BUN seen for the patient. Plan to continue his torsemide, but hold spironolactone and metolazone until his labs can be rechecked in the a.m. He, at this point, does not evidence any acute heart failure symptoms. It may be helpful to get records from the patient's primary care office and his record systems analyst's office to see if perhaps this is new baseline and he is tolerating these diuretics at home. 3. Hypertension. Plan to continue with torsemide, but again hold spironolactone and metolazone. I will continue his metoprolol. 4. Type 2 diabetes. Plan to continue lower doses of Lantus, hold glipizide. 5. Hyperlipidemia. Continue atorvastatin. 6. Code status is full code. 7. DVT prophylaxis. The patient has reported by his to have internal arteriovenous malformations and that he is not to be on any anticoagulants other than the aspirin, which he is on at home. Therefore, she specifically noted that he should not have anticoagulation for DVT prophylaxis. Therefore, he will have SCDs only. TIME SPENT: Approximately 60 minutes was spent on the admission of this patient , more than half the time spent with the patient at the bedside reviewing the events leading up to this hospitalization, performing the physical examination, and reviewing the plan of care. ELIZABETH MALAVE NP [id number]/[facility] #: [id number] ABHINAV
[2017-03-21] MEDS: Ferrous Sulfate TAB* 325 MG PO SCH (22:19)
[2017-03-21] MEDS: Metoprolol Tartrate TAB* 50 mg PO SCH (22:19)
[2017-03-21] MEDS: Torsemide TAB* 20 MG PO SCH (22:19)
[2017-03-21] MEDS: Insulin GLARGINE(*) 1 UNITS UNIT SUBCUT SCH (22:20)
[2017-03-22 05:23] LABS: ABS Basophils 0.1 10^3/ul (0-0.2); ABS Eosinophils 0.3 10^3/ul (0-0.6); ABS Lymphocytes 0.5 10^3/ul (1.0-4.8); ABS Monocytes 0.9 10^3/ul (0-0.8); ABS Neutrophils 10.1 10^3/ul (1.5-7.7); ABS Nucleated RBC 0 10^3/ul; Eosinophil % 2.9 % (0-6); Hematocrit 29 % (42-52); Hemoglobin 9.7 g/dl (14.0-18.0); Lymphocyte % 4.3 % (25-47); Mean Corpuscular HGB Conc 33 g/dl (31-36); Mean Corpuscular Hemoglobin 31 pg (27-31); Mean Corpuscular Volume 94 fL (80-94); Mean Platelet Volume 8 um3 (7.4-10.4); Nucleated Red Blood Cells % 0.1; Platelet Count 164 10^3/ul (150-450); Red Blood Count 3.13 10^6/ul (4.0-5.4); Red Cell Distribution Width 17 % (10.5-15); White Blood Count 11.9 10^3/ul (3.5-10.8)
[2017-03-22 05:38] LABS: EGFR Non-African American 24.8 (>60)
[2017-03-22] MEDS: Insulin LISPRO* 1 UNITS UNIT SUBCUT SCH ×3 (08:45→17:41)
[2017-03-22] MEDS: Metoprolol Tartrate TAB* 50 mg PO SCH ×2 (08:45→20:14)
[2017-03-22] MEDS: Cholecalciferol TAB* 1000 UNITS PO SCH (08:45)
[2017-03-22] MEDS: Ascorbic Acid TAB* 500 MG PO SCH (08:45)
[2017-03-22] MEDS: Ferrous Sulfate TAB* 325 MG PO SCH ×2 (08:45→20:13)
[2017-03-22] MEDS: Allopurinol TAB* 100 MG PO SCH (08:45)
[2017-03-22] MEDS: Torsemide TAB* 20 MG PO SCH ×2 (08:45→20:13)
[2017-03-22] MEDS: Omeprazole CAP* 20 MG PO SCH (08:45)
[2017-03-22] MEDS: oxyCODONE/Acetamin 5/325 MG* TAB PO PRN ×2 (08:50→20:14)
[2017-03-22] MEDS ORDERED: Spironolactone TAB* 25 MG PO SCH (09:00)
[2017-03-22] MEDS ORDERED: Ferrous Sulfate TAB* 325 MG PO SCH (09:00)
--- NOTE | 2017-03-22 10:14 | PN ---
Subjective Date of Service: 03/22/17 Interval History: Patient in no pain when at rest. Pain in LT hip with movement. He has no dyspnea at rest, no chest pain. Family History: Unchanged from Admission Social History: Unchanged from Admission Past Medical History: Unchanged from Admission Objective Active Medications: Acetaminophen (Tylenol Tab*) 650 mg PO Q6H PRN PRN Reason: PAIN Albuterol/Ipratropium (Duoneb (Albuterol 2.5 Mg/Ipratropium 0.5 Mg)) 1 neb INH Q4H PRN PRN Reason: SOB/WHEEZING Allopurinol (Zyloprim Tab*) 200 mg PO QAM [facility] Last Admin: 03/22/17 08:45 Dose: 200 mg Ascorbic Acid (Vitamin C Tab*) 500 mg PO QAM [facility] Last Admin: 03/22/17 08:45 Dose: 500 mg Atorvastatin Calcium (Lipitor*) 80 mg PO QPM [facility] Last Admin: 03/21/17 17:31 Dose: 80 mg Cholecalciferol (Vitamin D Tab*) 2,000 units PO QAM [facility] Last Admin: 03/22/17 08:45 Dose: 2,000 units Citalopram Hydrobromide (Celexa Tab*) 20 mg PO QPM [facility] Last Admin: 03/21/17 17:31 Dose: 20 mg Dextrose (D50w Syringe 50 Ml*) 12.5 gm IV PUSH .FOR FS < 60 - SS PRN PRN Reason: FS < 60 Ferrous Sulfate (Ferrous Sulfate Tab*) 325 mg PO BID [facility] Last Admin: 03/22/17 08:45 Dose: 325 mg Insulin Glargine (Lantus(*)) 20 units SUBCUT BEDTIME [facility] Last Admin: 03/21/17 22:20 Dose: 20 unit Insulin Human Lispro (Humalog*) 0 units SUBCUT AC [facility] PRN Reason: Protocol Last Admin: 03/22/17 08:45 Dose: 2 units Metoprolol Tartrate (Lopressor Tab*) 50 mg PO BID [facility] Last Admin: 03/22/17 08:45 Dose: 50 mg Morphine Sulfate (Morphine Inj (Syringe)*) 4 mg IV Q4H PRN PRN Reason: PAIN Omeprazole (Prilosec Cap*) 20 mg PO QAM [facility] Last Admin: 03/22/17 08:45 Dose: 20 mg Oxycodone/Acetaminophen (Percocet 5/325 Tab*) 1 tab PO Q4H PRN PRN Reason: PAIN Last Admin: 03/22/17 08:50 Dose: 1 tab Oxycodone/Acetaminophen (Percocet 5/325 Tab*) 2 tab PO Q4H PRN PRN Reason: PAIN Torsemide (Demadex*) 20 mg PO BID [facility] Last Admin: 03/22/17 08:45 Dose: 20 mg Vital Signs - 8 hr 03/22/17 03/22/17 03/22/17 03:52 07:36 07:47 Temperature 36.9 C 36.8 C Pulse Rate 59 67 Respiratory 16 18 18 Rate Blood Pressure 122/48 122/48 (mmHg) O2 Sat by Pulse 93 94 Oximetry Oxygen Devices in Use Now: Nasal Cannula Appearance: sleeping, aroused to voice, no distress Ears/Nose/Mouth/Throat: Clear Oropharnyx Respiratory: Clear to Auscultation Cardiovascular: NL Sounds; No Murmurs; No JVD, - - irregular Abdominal: NL Sounds; No Tenderness; No Distention, No Hepatosplenomegaly Extremities: No Edema Neurological: Alert and Oriented x 3 Lines/Tubes/Other Access: Clean, Dry and Intact Peripheral IV Nutrition: Taking PO's Result Diagrams: 03/22/17 05:11 03/22/17 05:11 EKG Data: EKG w/ A-fib, RBBB echo pending Assess/Plan/Problems-Billing Assessment: 71 year old man with Type 2 diabetes, pulmonary hypertension, CKD, admitted with LEFT subcapital hip fracture. - Patient Problems (1) Pulmonary hypertension Current Visit: Yes Status: Chronic Priority: High Code(s): I27.20 - PULMONARY HYPERTENSION, UNSPECIFIED SNOMED Code(s): 17296748 Comment: - this raises risk of anesthesia - will have echo today. - I will discuss case with Dr. Muller of cardiology later today. (2) CKD (chronic kidney disease) Current Visit: Yes Status: Acute Priority: Medium Code(s): N18.9 - CHRONIC KIDNEY DISEASE, UNSPECIFIED SNOMED Code(s): 991274893 Comment: - Creatinine slightly improved today with certain diuretics held. - will continue to monitor (3) Diabetes type 2, controlled Current Visit: Yes Status: Acute Priority: Medium Code(s): E11.9 - TYPE 2 DIABETES MELLITUS WITHOUT COMPLICATIONS SNOMED Code(s): 66232498 Comment: -diabetes under adequate control w/ lower dose Lantus (4) Fracture of hip, left, closed Current Visit: Yes Status: Acute Priority: Medium Code(s): S72.002A - FRACTURE OF UNSP PART OF NECK OF LEFT FEMUR, INIT SNOMED Code(s): 923358689 Comment: - I expect medical issues will be optimized today so that surgery could occur tomorrow with best chance of avoiding complications. (5) DVT prophylaxis Current Visit: Yes Status: Acute Priority: Low Code(s): WMC4288 - SNOMED Code(s): 232202033 Comment: - SCDs Status and Disposition: Inpatient, will need acute rehab after repair
--- NOTE | 2017-03-22 14:36 | ECHO ---
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 left hip. PMHx: severe PHTN,s/p aortic valve replacement(porcine per pt), CAD with CABG,DM,a-fib,HTN,HLD, CKD stage III-IV. Study done with patient supine and HOB at 30 degrees due to fx hip. Technical Comments: The study was technically limited due to the patient's inability to lay in the left lateral decubitus position. Left Ventricle: The left ventricular chamber size is normal. Moderate concentric left ventricular hypertrophy is observed. There is normal left ventricular systolic function. The estimated ejection fraction is greater than 65%. Post surgical hypokinesis of the interventricular septum is observed consistent with valve replacement. and/or RV pressure/volume overload. The assessment of diastolic function is non-diagnostic. Left Atrium: The left atrium is moderately dilated. Right Ventricle: The right ventricle is moderately dilated. The right ventricular global systolic function is mildly to moderately reduced. Right Atrium: The right atrium is moderately dilated. Aortic Valve: There is mild to moderate aortic regurgitation. , mechanism not well appreciated on transthoracic imaging. The highest aortic valve velocity was obtained with the standard probe from the A5C view. A porcine bio-prosthetic aortic valve is present. Valve type and size not available at time of interpretation. Acceleration time 105 msec. While in atrial fibrillation, average peak velocity across the bioprosthesis is 3.1 m/s, average mean gradient 24.7 mmHg. Dimensionless index 0.36. Stability of velocity/gradient measurements from 04/2013 and and 09/2014 echocardiograms with a high normal LVEF suggest no progressive aortic valve obstruction. Mitral Valve: Severe mitral annular calcification present.The mean gradient across the mitral valve is 2 mmHg suggesting no significant mitral stenosis while patient in atrial fibrillation rate 65 bpm. There is mild mitral regurgitation. There is no evidence of mitral stenosis. Tricuspid Valve: The tricuspid valve leaflets are normal. There is severe tricuspid regurgitation. The right ventricular systolic pressure is estimated at 80 mmHg. There is evidence of severe pulmonary hypertension. Pulmonic Valve: The pulmonic valve appears normal in structure and function. Pericardium: There is no significant pericardial effusion. Aorta: There is mild dilatation of the ascending aorta. The aortic arch is not well visualized. There is no dilation of the aortic root. Pulmonary Artery: The main pulmonary artery is not well visualized. Venous: The inferior vena cava is dilated. There is less than 50% respiratory change in the inferior vena cava dimension. Hepatic vein systolic flow is reversed. Conclusions The left ventricular chamber size is normal. Moderate concentric left ventricular hypertrophy is observed. There is normal left ventricular systolic function. The estimated LV ejection fraction is 65-70% Post surgical hypokinesis of the interventricular septum is observed consistent with valve replacement and/or RV pressure/volume overload. The left atrium is moderately dilated. The right ventricle is moderately dilated. The right ventricular global systolic function is mildly to moderately reduced. Aortic bioprosthesis present with no evidence of significant obstruction by doppler evaluation There is mild to moderate aortic regurgitation, mechanism not well appreciated on transthoracic imaging. Severe mitral annular calcification without any significant stenosis by doppler evaluation There is severe tricuspid regurgitation. There is evidence of severe pulmonary hypertension. The right ventricular systolic pressure is estimated at 80 mmHg (at time of systolic BP 122 mmHg) Compared to prior study from 09/2014, the degree of tricuspid regurgitation has worsened (was mild previously) Measurements Name Value Normal Range RVIDd (AP) 2D 3.4 cm (0.9 - 2.6) RVDdMajor (2D) 5.6 cm (2.2 - 4.4) RAd ISD 4CH 6.7 cm (3.4 - 4.9) RA (A4C)W 4.3 cm (2.9 - 4.6) IVSd (2D) 1.5 cm (0.6 - 1) LVPWd (2D) 1.2 cm (0.6 - 1) LVIDd (2D) 4.7 cm (3.6 - 5.4) LVIDs (2D) 3.3 cm - LV FS (2D) 29 % (25 - 45) Aortic Annulus 2.1 cm (1.4 - 2.6) Ao root diameter (2D) 2.9 cm (2.1 - 3.5) Ascending Ao 3.5 cm (2.1 - 3.4) LA dimension (AP) 2D 5.5 cm (2.3 - 3.8) LAd ISD 4CH 6.4 cm (2.9 - 5.3) LA ISD 4CH W 5.1 cm (2.5 - 4.5) Name Value Normal Range LA ESV SP 4CH (A/L) 101 ml - LA ESV SP 2CH (A/L) 120 ml - LA ESV BP (A/L) 125 ml - LA ESV BP (A/L) index 55.15 ml/m2 - LA ESV SP 4CH (MOD) 84 ml - LA ESV SP 2CH (MOD) 117 ml - Name Value Normal Range MV E-wave Vmax 1.6 m/sec - MV deceleration time 262 msec - LV septal e' Vmax 0.05 m/sec - LV lateral e' Vmax 0.07 m/sec - LV E:e' septal ratio 32 ratio - LV E:e' lateral ratio 22.8 ratio - Name Value Normal Range AV Vmax 3.1 m/sec - AV VTI 60.9 cm - AV mean gradient 24.7 mmHg - LVOT diameter 2.1 cm - LVOT Vmax 1.1 m/sec - LVOT VTI 22 cm - AR PHT 486 msec - AR peak gradient 37.91 mmHg - Name Value Normal Range MR Vmax 4.8 m/sec - MR VTI 114.3 cm - Name Value Normal Range TR Vmax 4 m/sec - TR peak gradient 65 mmHg - RAP 15 mmHg - RVSP 80 mmHg - IVC diameter 2.4 cm - Name Value Normal Range PV Vmax 1.1 m/sec - PV peak gradient 4.89 mmHg -
--- NOTE | 2017-03-22 16:11 | CONSULT ---
Subjective Date of Service: 03/22/17 Interval History: Admission Date: 03/21/17 Consult Date: 03/22/2017 Provider: Hospitalist service PMD: Dr. Sanchez Program Checker: Dr. Griffin CHIEF COMPLAINT: Fall with hip and back pain, hip fracture Reason for consult: Pre-operative cardiovascular risk stratification. HISTORY OF PRESENT ILLNESS: Mr. Osorio is a 71-year-old man with a history as follows who I was asked to evaluate for pre-operative cardiovascular risk stratification. His daughter is at bedside. Patient is confused and unable to provide a reliable history. History was taken from patients H+P and also conversation with his on speaker phone. He has a history of CAD s/p PCI and in 2009 or 2010 he had a bioprosthetic AVR and what sounds like CABG x 1. He had immediate leak of the valve after the surgery. He has a history of atrial fibrillation but coumadin was stopped due to bleeding AVM's and anemia and now he remains on aspirin. He follows with Dr. Griffin for cardiology. He follows with Dr. Tolentino for anemia. He had a heart catheterization in 2011 in which no stents were noted to be placed per her account. He has not had any recent stress testing. He follows with a Filter Assembler in [place] for known severe pulmonary hypertension. At one point he was told he had COPD and another point was told he did not. He does taken inhalers and is treated in a manner as that he did have this diagnosis. He was on prednisone for his lungs up until 9 months ago until his PMD discontinued this. He had smoked but quit 40 years ago. He also has a known history of CARRIE on CPAP. He has CKD stage IV and follows with a Compensation Specialist in case he would need to start with dialysis. Patient is able to tell me his legs have been weak for some time and this is his limiting factor and is likely related to PAD and has much less than 4 mets of functional capacity. He relates dyspnea on exertion. No chest discomfort has been noted. He had a mechanical fall on Thursday and now has a broke left hip that will require surgery. He did have orthopedic surgery with Dr. Jett with amputation of left third toe in 2016 and there was no report of complications during that surgery. PAST MEDICAL HISTORY: 1. Severe pulmonary hypertension with RV dysfunction and severe TR on today's echocardiogram 3. History of bioprosthetic AVR 2009 or 2010, known bioprosthetic AI (not severe) and stable gradients on today's echocardiogram. LVEF high normal 4. Atrial fibrillation not on anti-coagulation due to prior GI bleed 5. Hypertension. 6. Hyperlipidemia. 7. Coronary artery disease s/p PCI and likely CABG 8. [id number] diabetes. 9. Anemia. 10. History of carotid endarterectomy. 11. CKD stage 4 12. PAD with claudication ALLERGIES: To CLARITHROMYCIN. FAMILY HISTORY: The patient reports his mother with hypertension. Dad had a stroke and cancer. SOCIAL HISTORY: The patient is a former smoker. He quit almost 40 years ago. He drinks 1 gin and tonic per day. No report of drug use. He lives with his , Xochitl, who is his healthcare proxy. Her cell phone number is [phone]. Medications Active Medications: Acetaminophen (Tylenol Tab*) 650 mg PO Q6H PRN PRN Reason: PAIN Albuterol/Ipratropium (Duoneb (Albuterol 2.5 Mg/Ipratropium 0.5 Mg)) 1 neb INH Q4H PRN PRN Reason: SOB/WHEEZING Allopurinol (Zyloprim Tab*) 200 mg PO QAM [facility] Last Admin: 03/22/17 08:45 Dose: 200 mg Ascorbic Acid (Vitamin C Tab*) 500 mg PO QAM [facility] Last Admin: 03/22/17 08:45 Dose: 500 mg Atorvastatin Calcium (Lipitor*) 80 mg PO QPM [facility] Last Admin: 03/21/17 17:31 Dose: 80 mg Cholecalciferol (Vitamin D Tab*) 2,000 units PO QAM [facility] Last Admin: 03/22/17 08:45 Dose: 2,000 units Citalopram Hydrobromide (Celexa Tab*) 20 mg PO QPM [facility] Last Admin: 03/21/17 17:31 Dose: 20 mg Dextrose (D50w Syringe 50 Ml*) 12.5 gm IV PUSH .FOR FS < 60 - SS PRN PRN Reason: FS < 60 Ferrous Sulfate (Ferrous Sulfate Tab*) 325 mg PO BID [facility] Last Admin: 03/22/17 08:45 Dose: 325 mg Insulin Glargine (Lantus(*)) 20 units SUBCUT BEDTIME [facility] Last Admin: 03/21/17 22:20 Dose: 20 unit Insulin Human Lispro (Humalog*) 0 units SUBCUT [facility] PRN Reason: Protocol Last Admin: 03/22/17 12:45 Dose: 2 units Metoprolol Tartrate (Lopressor Tab*) 50 mg PO BID [facility] Last Admin: 03/22/17 08:45 Dose: 50 mg Morphine Sulfate (Morphine Inj (Syringe)*) 4 mg IV Q4H PRN PRN Reason: PAIN Omepraz[facility] ([facility]ilosec Cap*) [facility] Last Admin: 03/22/17 08:45 Dose: 20 mg Oxycodone/Acetaminophen (Percocet 5/325 Tab*) 1 tab PO Q4H PRN PRN Reason: PAIN Last Admin: 03/22/17 08:50 Dose: 1 tab Oxycodone/Acetaminophen (Percocet 5/325 Tab*) 2 tab PO Q4H PRN PRN Reason: PAIN Torsemide (Demadex*) 20 mg PO BID [facility] Last Admin: 03/22/17 08:45 Dose: 20 mg Home Medications: Ascorbic Acid TAB* [Vitamin C TAB*] 500 mg PO QAM 03/17/12 [History Confirmed 03/21/17] Aspirin 81 mg PO QAM 03/17/12 [History Confirmed 03/21/17] Atorvastatin* [Lipitor*] 80 mg PO QPM 03/17/12 [History Confirmed 03/21/17] Azelastine HCl 1 spray BOTH NARES BID 03/17/12 [History Confirmed 03/21/17] Citalopram TAB* [Celexa TAB*] 20 mg PO QPM 03/17/12 [History Confirmed 03/21/17] Folic Acid 400 mcg PO QAM 03/17/12 [History Confirmed 03/21/17] Omeprazole 20 mg PO QAM 03/17/12 [History Confirmed 03/21/17] Sennosides [Senna] 1 tab PO BID 03/17/12 [History Confirmed 03/21/17] Thiamine HCl [Vitamin B-1] 100 mg PO QAM 03/17/12 [History Confirmed 03/21/17] Acetaminophen [8 Hour Pain Reliever] 650 mg PO DAILY PRN 05/19/12 [History Confirmed 03/21/17] Mometasone Furoate (Nasal) [Nasonex] 1 spray BOTH NARES BID 05/19/12 [History Confirmed 03/21/17] Ferrous Sulfate [Iron Supplement] 650 mg PO QAM 05/20/13 [History Confirmed ] Metoprolol Tartrate TAB* [Lopressor TAB*] 50 mg PO BID 05/20/13 [History Confirmed 03/21/17] Allopurinol TAB* [Zyloprim 100 MG TAB*] 200 mg PO QAM 06/17/13 [History Confirmed 03/21/17] Ipratropium-Albuterol [Combivent Respimat 20-100 Mcg/Act] 1 puff INH QID [History Confirmed 03/21/17] Ipratropium [place] (Nasal) [Atrovent] 2 spray BOTH NARES BID 09/27/14 [History Confirmed 03/21/17] Spironolactone TAB* [Aldactone TAB*] 25 mg PO QAM 09/27/14 [History Confirmed ] Torsemide TAB* [Demadex*] 20 mg PO BID 09/27/14 [History Confirmed 03/21/17] glipiZIDE TAB* [Glucotrol TAB*] 5 mg PO BID 09/27/14 [History Confirmed 03/21/17 ] Cholecalciferol TAB* [Vitamin D TAB*] 2,000 units PO QAM 08/28/15 [History Confirmed 03/21/17] Amoxicillin PO (*) [Amoxicillin 500 MG CAP*] 4 cap PO SEE INSTRUCTIONS 02/28/16 [History Confirmed 03/21/17] Calcitriol CAP* [Rocaltrol CAP*] 0.25 mcg PO EVERY OTHER DAY 02/28/16 [History Confirmed 03/21/17] Metolazone 2.5 mg PO BID 02/28/16 [History Confirmed 03/21/17] Fluticasone HFA 220 mcg(NF) [Flovent Hfa 220 Mcg(NF)] 2 puff INH BID 05/07/16 [ History Confirmed 03/21/17] Ketoconazole (Topical) [Ketoconazole] 2 % EX . DIRECTED 05/07/16 [History Confirmed 03/21/17] Insulin GLARGINE(*) [Lantus(*)] 25 units SUBCUT .BEDTIME 03/21/17 [History Confirmed 03/21/17] Xylitol (Mouth-Throat) [Xylimelts/Mint Free] 1 tab PO QID 03/21/17 [History Confirmed 03/21/17] Review of Systems - Measurements Intake and Output: Intake and Output Last 24 Hours 03/20/17 03/21/17 03/22/17 03/23/17 06:59 06:59 06:59 06:59 Intake Total 590 620 Output Total 575 350 Balance 15 270 Weight 223 lb Intake: Oral 590 620 Output: Urine 575 350 Other: # Bowel Movements 0 - Review of Systems Review of Systems Statement: Unable to obtain due to patients mental status Objective Vital Signs: Temp Pulse Resp BP Pulse Ox 97.8 F 88 20 121/55 97 03/22/17 11:13 03/22/17 11:13 03/22/17 12:55 03/22/17 11:13 03/22/17 13:01 Oxygen Devices in Use Now: Nasal Cannula Appearance: chronically ill appearing, does not appear to be in pain. Ears/Nose/Mouth/Throat: Clear Oropharnyx, Mucous Membranes Moist Neck: Trachea Midline, - - uncertain jvp Respiratory: Symmetrical Chest Expansion and Respiratory Effort, - - no obvious wheeze Cardiovascular: - - irregularly irreglar, no significant murmur, sternotomy noted Abdominal: - - obese, non-tender Extremities: No Clubbing, Cyanosis, - - no significant edema Skin: - - multiple ecchymosis noted on arms and left ear. Neurological: - - awake and alert, confused Laboratory Results: 03/22/17 05:11 03/22/17 05:11 Total Bilirubin 0.40 mg/dL (0.2-1.0) 03/21/17 11:41 AST 27 U/L (13-39) 03/21/17 11:41 ALT 19 U/L (7-52) 03/21/17 11:41 Alkaline Phosphatase 56 U/L (34-104) 03/21/17 11:41 Total Protein 6.8 g/dL (6.4-8.9) 03/21/17 11:41 Albumin 3.7 g/dL (3.2-5.2) 03/21/17 11:41 Globulin 3.1 g/dL (2-4) 03/21/17 11:41 Albumin/Globulin Ratio 1.2 (1-3) 03/21/17 11:41 Diagnostic Imaging: CXR admission: No acute disease EKG Data: EKG 09/27/2014: Afib, LAFB EKG 03/21/2018: Afb, RBBB, LAFB Assessment/Plan We had a long discussion today about Mr. Osorio's medical status and need for surgery. His has excellent insight into his overall serious multiple medical problems placing him at elevated risk (including cardiovascular risk) of sumit-operative life threatening complications. He has no evidence of a recent NE, severe mitral or aortic valve disease, malignant arrhythmia, or grossly decompensated heart failure. There are no absolute contraindications to proceeding with surgery. Patient would not be a good PCI revascularization candidate at this time due to his acute hip fracture and need for surgery so I do not think that any ischemic evaluation is warranted and we discussed this today. His and daughter (and patient to the extent he is able to provide informed consent) understand and accept the elevated risks of the procedure in favor of the expected benefit the surgery is to provide. Would minimize the extent of anesthesia to the degree possible and would consider use of a nerve block if possible. Medications as above reviewed and agreed. Continue sumit- operative statin and beta-steve. Restart aspirin CRISTOBAL to help prevent ischemic complications.
[2017-03-22] MEDS: Citalopram TAB* 20 MG PO SCH (17:41)
[2017-03-22] MEDS: Atorvastatin* 80 MG TAB PO SCH (17:41)
[2017-03-22] MEDS: Insulin GLARGINE(*) 1 UNITS UNIT SUBCUT SCH (20:14)
[2017-03-23] MEDS: Cholecalciferol TAB* 1000 UNITS PO SCH ×2 (07:22→07:59)
[2017-03-23] MEDS: Ascorbic Acid TAB* 500 MG PO SCH ×2 (07:22→07:59)
[2017-03-23] MEDS: Ferrous Sulfate TAB* 325 MG PO SCH ×2 (07:23→07:59)
[2017-03-23] MEDS: Omeprazole CAP* 20 MG PO SCH ×2 (07:23→07:59)
[2017-03-23] MEDS: Allopurinol TAB* 100 MG PO SCH ×2 (07:23→07:59)
[2017-03-23] MEDS: Torsemide TAB* 20 MG PO SCH ×2 (07:59→21:44)
[2017-03-23] MEDS: Metoprolol Tartrate TAB* 50 mg PO SCH ×2 (07:59→21:44)
[2017-03-23] MEDS ORDERED: Calcitriol CAP* 0.25 MCG PO SCH (09:00)
[2017-03-23] MEDS: Insulin LISPRO* 1 UNITS UNIT SUBCUT SCH ×2 (09:06→17:40)
[2017-03-23] MEDS ORDERED: Buffered Lidocaine 0.9% SYRIN* 5 ML/SYR SYRINGE INTRADERM ONE (10:10)
[2017-03-23] MEDS ORDERED: Buffered Lidocaine 0.9% SYRIN* 5 ML/SYR SYRINGE ONE (11:18)
[2017-03-23] MEDS ORDERED: Bupivacaine 0.25% SDV* 30 ML ONE (11:32)
[2017-03-23] MEDS ORDERED: ceFAZolin 2 GM PREMIX (*) 2 GM/50 ML BAG IVPB ONE (11:36)
[2017-03-23] MEDS: NS 0.9% 1000 ML* 1,000 ML IV SCH ×2 (11:41→16:27)
[2017-03-23] MEDS ORDERED: Midazolam* 1 MG/ML 2 ML VIAL (2 MG) ONE (12:07)
[2017-03-23] MEDS ORDERED: Famotidine IV* 10 MG/ML 2 ML (20 mg) ONE (12:07)
[2017-03-23] MEDS ORDERED: KETAMINE HCL* 50 MG/ML 10 ML VIAL ONE (12:13)
[2017-03-23] MEDS ORDERED: Bupivacaine 0.5% SDV PF* 10-30ML VIAL ONE (12:30)
[2017-03-23] MEDS ORDERED: Lidocaine 1% MPF wEPI 200,000* 30 ML SDV ONE (12:30)
[2017-03-23] MEDS ORDERED: fentaNYL* 50 MCG/ML 2 ML VIAL (100 MCG VIAL) IV PRN (13:05)
[2017-03-23] MEDS ORDERED: Naloxone* 0.4 MG/ML 1 ML VIAL IV PRN (13:05)
[2017-03-23] MEDS ORDERED: Ondansetron INJ* 2 MG/ML VIAL IV PRN (13:05)
[2017-03-23] MEDS ORDERED: Levalbuterol 0.63MG/3ML NEB* UNIT OF USE INH PRN (13:05)
--- NOTE | 2017-03-23 14:18 | RAD ---
INDICATION: Left hip fracture, pinning. COMPARISONS: None relevant TECHNIQUE: Fluoroscopy was provided for a surgical procedure. Total fluoroscopy time is: 48 seconds FINDINGS: Spot images demonstrate internal fixation of the femur. IMPRESSION: FLUOROSCOPY WAS PROVIDED FOR A SURGICAL PROCEDURE CPT II Codes: 6045F
[2017-03-23] MEDS: Atorvastatin* 80 MG TAB PO SCH (18:02)
[2017-03-23] MEDS: Citalopram TAB* 20 MG PO SCH (18:02)
--- NOTE | 2017-03-23 18:28 | PN ---
Critical Care Services: Admitteds to ICU from OR for observation, and is doing well. Is somnolent but arousable, and breathing comfortably on a CPAP mask. Vital Signs: Temp Pulse Resp BP SpO2 FiO2 97.7 F 63 16 114/50 93 24% Physical Exam: Gen:As mentioned HEENT: CPAP mask in place. Lungs:No adventitious sounds Cardiac: Irreg rhythm (AFib) Extremities: No cyanosis. Fluid Balance (Past 24 Hours): 03/23/17 06:59 Intake Total 1250 Output Total 850 Balance 400 Weight 223 lb Intake: IV Fluids NS NS 50ML, Cefazolin 2G Oral 1250 Output: Urine 850 Ferrari Other: # Bowel Movements Labs: 03/23/17 03/23/17 07:40 14:15 POC Glucose (mg/dL) 170 H 157 H Nutrition: Diabetic deit - will start oral feedings tonight. Impression: Satisfactory postop course. Plan: Avoid or minimize use of opioids for pain (because of Hx of CO2 retention). Will use the CPAP mask overnight.
[2017-03-23] MEDS ORDERED: ceFAZolin 1 GM in Dextrose (*) 1 GM/50 ML BAG IVPB SCH (20:00)
[2017-03-23] MEDS: ceFAZolin 1 GM in Dextrose (*) 1 GM/50 ML BAG IVPB SCH (21:36)
[2017-03-23] MEDS: Insulin GLARGINE(*) 1 UNITS UNIT SUBCUT SCH (21:40)
[2017-03-24] MEDS: Morphine INJ* 4 MG/ML 1 ML CARPUJECT IV PRN ×2 (00:01→07:36)
--- NOTE | 2017-03-24 05:32 | OP ---
DATE OF OPERATION: 03/23/17 - ROOM #ICU-08 DATE OF : 45 SURGEON: Murphy Vasquez MD ANESTHESIOLOGIST: Dr. Barrientos ANESTHESIA: Local/MAC. PRE-OP DIAGNOSIS: Valgus impacted left hip fracture. POST-OP DIAGNOSIS: Valgus impacted left hip fracture. OPERATIVE PROCEDURE: Percutaneous pinning, left hip fracture. ESTIMATED BLOOD LOSS: None. COMPLICATIONS: None. SUMMARY: Mr. Osorio is a 71-year-old male who has significant medical comorbidities. This includes a significant cardiac history, severe COPD, and AVMs. He had fallen over the weekend and sustained a left valgus impacted fracture. He was admitted on the , but because of his medical comorbidities did not clear until today. He was added on to the OR schedule, but when anesthesia reviewed the on-call case list, they felt that he should go during the day so that there would be additional consultants and manpower available if something did occur. Anesthesia did write a note to that effect as well. One of my cases did not clear, so I had OR time available and I had asked Dr. Robertson if it would be alright if I proceeded with the case. He did feel that since anesthesia felt it would be safer for the patient that it would be alright to proceed on an earlier basis. He was concerned that the patient know that he was not abandoning them and I did relay this to the family as well. I also discussed with them risks of surgery such as infection, scar formation, stiffness, DVT, pulmonary embolism, avascular necrosis of the femoral head, non-healing of the fracture and continued pain about the hip. They had wished to proceed. DESCRIPTION OF PROCEDURE: The patient was brought to the OR and MAC was established. Ferrari catheter and an A-line were both placed. He was then positioned on the fracture table, so that C-arm could come in and I could view the left hip in both the AP and lateral views. It was a little difficult as his right hip was quite stiff and did not rotate. Adequate x-rays however were able to be gotten and left hip area was prepped and then draped. Skin over where the incision will be made was infiltrated using a 50:50 mixture of 0.25% Marcaine with 1.5% lidocaine with epinephrine. Stab incision was made about where the screws would go in and a straight snap was then penetrated down to the lateral bone and spread, so that I would not catch much of the IT band. Guidewire was then placed and the starting positioning adjusted until I like them in both the AP and lateral planes and then guidewire was run up through the femoral neck into the head. On the AP, it appeared I had a nice positioning of the wire and then on the lateral view, this was confirmed. Portion of the guidewire sticking out was measured and drill was run over the guidewire. Screw was then placed and a nice bite was obtained. In similar fashion, another guidewire was placed using C-arm guidance to make sure it did not penetrate into the hip joint and then this was then drilled and a screw was placed. Three screws were placed and final C-arm pictures were taken. Wound was irrigated using a bulb syringe and one 2-0 Vicryl was placed into the subcutaneous tissues. Skin was closed using sita. Sterile dressing was applied. The patient was then awake and stable on transfer to the recovery room. [id number]/[facility] #: [id number] ABHINAV
[2017-03-24] MEDS: ceFAZolin 1 GM in Dextrose (*) 1 GM/50 ML BAG IVPB SCH ×2 (05:45→14:57)
[2017-03-24 06:14] LABS: Hematocrit 28 % (42-52); Hemoglobin 9.2 g/dl (14.0-18.0); Mean Corpuscular HGB Conc 33 g/dl (31-36); Mean Corpuscular Hemoglobin 31 pg (27-31); Mean Corpuscular Volume 93 fL (80-94); Mean Platelet Volume 7 um3 (7.4-10.4); Platelet Count 168 10^3/ul (150-450); Red Blood Count 2.99 10^6/ul (4.0-5.4); Red Cell Distribution Width 17 % (10.5-15); White Blood Count 14.6 10^3/ul (3.5-10.8)
[2017-03-24 06:38] LABS: EGFR Non-African American 19.9 (>60)
[2017-03-24] MEDS ORDERED: Morphine INJ* 4 MG/ML 1 ML CARPUJECT IV PRN (08:09)
[2017-03-24] MEDS: Insulin LISPRO* 1 UNITS UNIT SUBCUT SCH ×3 (08:13→18:18)
--- NOTE | 2017-03-24 08:13 | RAD ---
INDICATION: Pneumonia COMPARISON: Chest x-ray dated March 21, 2017 TECHNIQUE: Single AP portable view of the chest was obtained. FINDINGS: Image quality is compromised due to the relative inferiority of a portable chest x-ray. Sternotomy wires and a prostatic aortic valve are again noted. There is either elevation of the right hemidiaphragm or density obscuring the right lung base. This is similar in appearance to the most recent chest x-ray. The pulmonary vasculature appears engorged and indistinct. IMPRESSION: Density obscuring the right lung base is partially due to chronic elevation of the right hemidiaphragm but potentially could be worse due to atelectasis, consolidation and/or pleural effusion. The pulmonary vasculature appears engorged and indistinct consistent with cardiogenic pulmonary edema.
--- NOTE | 2017-03-24 09:14 | PN ---
Subjective Date of Service: 03/24/17 Interval History: Patient seen and examined at bedside. Denies fever, chills, shortness of breath , chest discomfort, N/V/D. Pt states that his pain is controlled at this time. Tele: Afib, rate 70-80's. Family History: Unchanged from Admission Social History: Unchanged from Admission Past Medical History: Findings - GI bleed d/t AVMs 2010 Objective Active Medications: Acetaminophen (Tylenol Tab*) 975 mg PO Q6H [facility]RE[facility] Albuterol/Ipratropium (Duoneb (Albuterol 2.5 Mg/Ipratropium 0.5 Mg)) 1 neb INH Q4H PRN Reason: SOB/WHEEZING Allopurinol (Zyloprim Tab*) 200 mg PO QAM [facility] Ascorbic Acid (Vitamin C Tab*) 500 mg PO QAM [facility] Aspirin (Aspirin Low Dose Tab*) 81 mg PO DAILY [facility] Atorvastatin Calcium (Lipitor*) 80 mg PO QPM [facility] Cholecalciferol (Vitamin D Tab*) 2,000 units PO QAM [facility] Citalopram Hydrobromide (Celexa Tab*) 20 mg PO QPM [facility] Dextrose (D50w Syringe 50 Ml*) 12.5 gm IV PUSH .FOR FS < 60 - SS PRN Reason: FS < 60 Enoxaparin Sodium (Lovenox(*)) 40 mg SUBCUT Q24H [facility] Sodium Chloride (Ns 0.9% 1000 Ml*) 1,000 mls @ 25 mls/hr IV PER RATE [facility] Cefazolin Sodium/Dextrose (Kefzol 1 Gm In Dextrose Duplex (*)) 1 gm in 50 mls @ 200 mls/hr IVPB 0530,1330,2130 [facility] Stop: 03/24/17 13:44 Insulin Glargine (Lantus(*)) 20 units SUBCUT BEDTIME [facility] Insulin Human Lispro (Humalog*) 0 units SUBCUT AC [facility] Metoprolol Tartrate (Lopressor Tab*) 50 mg PO BID [facility] Morphine Sulfate (Morphine Inj (Syringe)*) 4 mg IV Q4H PRN Reason: PAIN - UNCONTROLLED Omeprazole (Prilosec Cap*) 20 mg PO QAM [facility] Torsemide (Demadex*) 20 mg PO BID [facility] Vital Signs - 8 hr 03/24/17 03/24/17 03/24/17 01:30 02:00 02:30 Temperature 99.3 F 99.1 F 99.1 F Pulse Rate 73 72 81 Respiratory 19 19 20 Rate Blood Pressure 111/57 (mmHg) O2 Sat by Pulse 94 95 96 Oximetry 03/24/17 03/24/17 03/24/17 03:00 03:30 04:00 Temperature 99.0 F 99.0 F 99.0 F Pulse Rate 77 75 75 Respiratory 20 19 19 Rate Blood Pressure 119/69 113/50 (mmHg) O2 Sat by Pulse 97 95 94 Oximetry 03/24/17 03/24/17 03/24/17 04:30 04:44 05:00 Temperature 98.6 F 98.6 F 98.6 F Pulse Rate 81 73 74 Respiratory 19 19 18 Rate Blood Pressure 113/50 112/49 (mmHg) O2 Sat by Pulse 96 95 96 Oximetry 03/24/17 03/24/17 03/24/17 05:30 06:00 06:30 Temperature 98.8 F 99.1 F 99.3 F Pulse Rate 81 81 86 Respiratory 19 19 18 Rate Blood Pressure 112/63 (mmHg) O2 Sat by Pulse 96 96 96 Oximetry 03/24/17 03/24/17 03/24/17 07:00 07:30 07:36 Temperature 99.3 F Pulse Rate 76 78 Respiratory 18 19 19 Rate Blood Pressure 125/51 (mmHg) O2 Sat by Pulse 96 95 Oximetry 03/24/17 08:00 Temperature 99.1 F Pulse Rate 77 Respiratory 18 Rate Blood Pressure 117/48 (mmHg) O2 Sat by Pulse 98 Oximetry Oxygen Devices in Use Now: Nasal Cannula - 4L Appearance: NAD, sitting up in bed Ears/Nose/Mouth/Throat: Mucous Membranes Moist Respiratory: Symmetrical Chest Expansion and Respiratory Effort, Clear to Auscultation - , diminished Cardiovascular: NL Sounds; No Murmurs; No JVD, - - Heart rate irregular Abdominal: NL Sounds; No Tenderness; No Distention Extremities: - - Dressing to left hip clean, dry and intact Skin: No Rash or Ulcers Neurological: NL Muscle Strength and Tone, - - Alert and Oriented to Person and Place Lines/Tubes/Other Access: Clean, Dry and Intact Peripheral IV - site benign Nutrition: Taking PO's Result Diagrams: 03/24/17 05:50 03/24/17 05:50 Additional Lab and Data: Diagnostic Imaging: Echo - Severe pulmonary HTN, severe tricuspid regurg, mild to moderate aortic regurg, EF 65-70% EKG Data: EKG w/ A-fib, RBBB Assess/Plan/Problems-Billing Assessment: Mr. Peter is a 71 year old man with Type 2 diabetes, pulmonary hypertension, CKD, who was admitted with a LEFT subcapital hip fracture. - Patient Problems (1) Fracture of hip, left, closed Code(s): S72.002A - FRACTURE OF UNSP PART OF NECK OF LEFT FEMUR, INIT SNOMED Code(s): 537173895 Comment: - S/P left hip perc pinning, POD #1 - Management per ortho - Will avoid/limit opioids d/t CO2 retention - Continue pain management (standing tylenol), bowel regimen, OT/PT (2) Leukocytosis Code(s): D72.829 - ELEVATED WHITE BLOOD CELL COUNT, UNSPECIFIED SNOMED Code(s) : 390483825 Comment: - No signs of PNA or UTI - Afebrile - Suspect secondary to stress response (3) Pulmonary hypertension Code(s): I27.20 - PULMONARY HYPERTENSION, UNSPECIFIED SNOMED Code(s): 16565103 Comment: - Cardiology consult, input appreciated (4) CAD (coronary artery disease) Code(s): I25.10 - ATHSCL HEART DISEASE OF [place] CORONARY ARTERY W/O ANG PCTRS SNOMED Code(s): 87113069 Comment: - s/p PCI/CABG - Asymptomatic - Continue ASA, statin and beta steve (5) CKD (chronic kidney disease) Code(s): N18.9 - CHRONIC KIDNEY DISEASE, UNSPECIFIED SNOMED Code(s): 145542832 Comment: - Acute on chronic - Creatinine elevated - Continue to monitor and will check a FeNA - Continue to spironolactone for now (6) Diabetes type 2, controlled Priority: Medium Code(s): E11.9 - TYPE 2 DIABETES MELLITUS WITHOUT COMPLICATIONS SNOMED Code(s): 39910259 Comment: - Glucose 80-100's - Continue Lantus and Lispro SS (7) Atrial fibrillation Code(s): I48.91 - UNSPECIFIED ATRIAL FIBRILLATION SNOMED Code(s): 32039191 Comment: - Rate controlled - Pt is not anticoagulated at home - Continue metoprolol (8) COPD (chronic obstructive pulmonary disease) Code(s): J44.9 - CHRONIC OBSTRUCTIVE PULMONARY DISEASE, UNSPECIFIED SNOMED Code(s): 17279868 Comment: - No signs of acute exacerbation at this time - Uses 2L via Nc at home - Continue home medications (9) Hypertension Code(s): I10 - ESSENTIAL (PRIMARY) HYPERTENSION SNOMED Code(s): 33190521 Comment: - Normotensive - Continue metoprolol (10) Sleep apnea Code(s): G47.30 - SLEEP APNEA, UNSPECIFIED SNOMED Code(s): 62363196 Comment: - Continue CPAP at (11) DVT prophylaxis Code(s): HLK8572 - SNOMED Code(s): 630621355 Comment: - SCDs and will start Lovenox later today per ortho (ok with Hx AVMs) (12) Full code status Code(s): Z78.9 - OTHER SPECIFIED HEALTH STATUS SNOMED Code(s): 915503082 Status and Disposition: Inpatient, will need acute rehab after repair.
[2017-03-24] MEDS: Cholecalciferol TAB* 1000 UNITS PO SCH (10:04)
[2017-03-24] MEDS: Torsemide TAB* 20 MG PO SCH ×2 (10:05→21:09)
[2017-03-24] MEDS: Ascorbic Acid TAB* 500 MG PO SCH (10:05)
[2017-03-24] MEDS: Metoprolol Tartrate TAB* 50 mg PO SCH ×2 (10:08→21:09)
[2017-03-24] MEDS: Omeprazole CAP* 20 MG PO SCH (10:08)
[2017-03-24] MEDS: Allopurinol TAB* 100 MG PO SCH (10:12)
[2017-03-24] MEDS: Aspirin Low Dose CHEW TAB* 81 MG PO SCH (10:12)
--- NOTE | 2017-03-24 12:47 | PN ---
Progress Note - Progress Note Date of Service: 03/24/17 SOAP: Subjective: []Patient seen at bedside this morning in the ICU as well as in SSU this afternoon. He feels well and was able to get out of bed with physical therapy. Denies CP, SOB, dizziness, LLE pain. Objective: [] Vital Signs Temp 99.5 F 03/24/17 11:00 Pulse 249 03/24/17 11:00 Resp 18 03/24/17 11:00 BP 114/58 03/24/17 11:00 Pulse Ox 92 03/24/17 11:00 Intake & Output 03/23/17 03/24/17 03/24/17 18:59 06:59 18:59 Intake Total 828 446 1586 Output Total 250 1000 350 Balance -50 -166 682 Weight 222 lb 10.67 oz 224 lb 13.944 oz Intake: IV Fluids 200 324 192 NS 150 NS (0.9%) 324 192 NS 50ML, Cefazolin 2G 50 IVPB 60 NS (0.9%) 60 Oral 450 840 Output: Urine 100 Ferrari 150 1000 350 Laboratory Last Values WBC 14.6 10^3/ul (3.5-10.8) H 03/24/17 05:50 RBC 2.99 10^6/ul (4.0-5.4) L 03/24/17 05:50 Hgb 9.2 g/dl (14.0-18.0) L 03/24/17 05:50 Hct 28 % (42-52) L 03/24/17 05:50 MCV 93 fL (80-94) 03/24/17 05:50 MCH 31 pg (27-31) 03/24/17 05:50 MCHC 33 g/dl (31-36) 03/24/17 05:50 RDW 17 % (10.5-15) H 03/24/17 05:50 Plt Count 168 10^3/ul (150-450) 03/24/17 05:50 MPV 7 um3 (7.4-10.4) L 03/24/17 05:50 Neut % (Auto) 84.8 % (38-83) H 03/22/17 05:11 Lymph % (Auto) 4.3 % (25-47) L 03/22/17 05:11 [place] % (Auto) 7.5 % (1-9) 03/22/17 05:11 Eos % (Auto) 2.9 % (0-6) 03/22/17 05:11 Baso % (Auto) 0.5 % (0-2) 03/22/17 05:11 Absolute Neuts (auto) 10.1 10^3/ul (1.5-7.7) H 03/22/17 05:11 Absolute Lymphs (auto) 0.5 10^3/ul (1.0-4.8) L 03/22/17 05:11 Absolute Monos (auto) 0.9 10^3/ul (0-0.8) H 03/22/17 05:11 Absolute Eos (auto) 0.3 10^3/ul (0-0.6) 03/22/17 05:11 Absolute Basos (auto) 0.1 10^3/ul (0-0.2) 03/22/17 05:11 Absolute Nucleated RBC 0 10^3/ul 03/22/17 05:11 Nucleated RBC % 0.1 03/22/17 05:11 Sodium 138 mmol/L (133-145) 03/24/17 05:50 Potassium 4.6 mmol/L (3.5-5.0) 03/24/17 05:50 Chloride 98 mmol/L (101-111) L 03/24/17 05:50 Carbon Dioxide 29 mmol/L (22-32) 03/24/17 05:50 Anion Gap 11 mmol/L (2-11) 03/24/17 05:50 BUN 128 mg/dL (6-24) H 03/24/17 05:50 Creatinine 3.11 mg/dL (0.67-1.17) H 03/24/17 05:50 Est GFR ( Amer) 25.6 (>60) 03/24/17 05:50 Est GFR (Non-Af Amer) 19.9 (>60) 03/24/17 05:50 BUN/Creatinine Ratio 41.2 (8-20) H 03/24/17 05:50 Glucose 89 mg/dL (70-100) 03/24/17 05:50 POC Glucose (mg/dL) 168 mg/dL (70-100) H 03/24/17 12:02 Calcium 9.5 mg/dL (8.6-10.3) 03/24/17 05:50 Total Bilirubin 0.40 mg/dL (0.2-1.0) 03/21/17 11:41 AST 27 U/L (13-39) 03/21/17 11:41 ALT 19 U/L (7-52) 03/21/17 11:41 Alkaline Phosphatase 56 U/L (34-104) 03/21/17 11:41 Total Protein 6.8 g/dL (6.4-8.9) 03/21/17 11:41 Albumin 3.7 g/dL (3.2-5.2) 03/21/17 11:41 Globulin 3.1 g/dL (2-4) 03/21/17 11:41 Albumin/Globulin Ratio 1.2 (1-3) 03/21/17 11:41 Urine Color Straw 03/21/17 11:41 Urine Appearance Clear 03/21/17 11:41 Urine pH 5.0 (5-9) 03/21/17 11:41 Ur Specific [place] 1.011 (1.010-1.030) 03/21/17 11:41 Urine Protein Negative (Negative) 03/21/17 11:41 Urine Ketones Negative (Negative) 03/21/17 11:41 Urine Blood Negative (Negative) 03/21/17 11:41 Urine Nitrate Negative (Negative) 03/21/17 11:41 Urine Bilirubin Negative (Negative) 03/21/17 11:41 Urine Urobilinogen Negative (Negative) 03/21/17 11:41 Ur Leukocyte Esterase Negative (Negative) 03/21/17 11:41 Ur Random Creatinine 81.88 mg/dL 03/24/17 10:45 Ur Random Sodium 21 mmol/L 03/24/17 10:45 Urine Glucose Negative (Negative) 03/21/17 11:41 Urine Ascorbic Acid * (Negative) H 03/21/17 11:41 Influenza A (Rapid) Negative (Negative) 03/21/17 13:48 Influenza B (Rapid) Negative (Negative) 03/21/17 13:48 Blood Type B Positive 03/21/17 11:41 Antibody Screen Negative 03/21/17 11:41 Crossmatch See Detail 03/21/17 11:41 General: Patient seen at bedside while in the ICU. LLE: Dressing CDI. DF/PF intact. Sensation intact distally. BL LE: Calves supple and nontender without erythema, edema or palpable cords Assessment: []Percutaneous pinning left hip fracture 03/23/17 Dr Vasquez Plan: []Lovenox 30 mg SQ QD WBAT for transfers, 50%for ambulation PMRU referral in
[2017-03-24] MEDS: Acetaminophen TAB* 325 MG PO SCH ×2 (13:02→18:17)
[2017-03-24] MEDS: Enoxaparin(*) 30 MG/0.3 ML SYR SUBCUT SCH (13:02)
[2017-03-24] MEDS ORDERED: oxyCODONE/Acetamin 5/325 MG* TAB PO PRN ×2 (15:03)
[2017-03-24] MEDS ORDERED: Docusate CAP* 100 MG PO PRN (15:31)
[2017-03-24] MEDS ORDERED: Magnesium Hydroxide LIQ* 30 ML UDC PO PRN (15:31)
[2017-03-24] MEDS: Citalopram TAB* 20 MG PO SCH (18:17)
[2017-03-24] MEDS: Atorvastatin* 80 MG TAB PO SCH (18:18)
[2017-03-24] MEDS: Insulin GLARGINE(*) 1 UNITS UNIT SUBCUT SCH (21:09)
[2017-03-25] MEDS: Acetaminophen TAB* 325 MG PO SCH ×5 (00:03→23:44)
[2017-03-25 05:36] LABS: Hematocrit 26 % (42-52); Hemoglobin 8.7 g/dl (14.0-18.0); Mean Corpuscular HGB Conc 33 g/dl (31-36); Mean Corpuscular Hemoglobin 30 pg (27-31); Mean Corpuscular Volume 92 fL (80-94); Mean Platelet Volume 7 um3 (7.4-10.4); Platelet Count 156 10^3/ul (150-450); Red Blood Count 2.86 10^6/ul (4.0-5.4); Red Cell Distribution Width 17 % (10.5-15); White Blood Count 9.6 10^3/ul (3.5-10.8)
[2017-03-25 05:53] LABS: EGFR Non-African American 18.6 (>60)
[2017-03-25] MEDS: Allopurinol TAB* 100 MG PO SCH (08:40)
[2017-03-25] MEDS: Ascorbic Acid TAB* 500 MG PO SCH (08:40)
[2017-03-25] MEDS: Insulin LISPRO* 1 UNITS UNIT SUBCUT SCH ×3 (08:41→18:10)
[2017-03-25] MEDS: Cholecalciferol TAB* 1000 UNITS PO SCH (08:41)
[2017-03-25] MEDS: Aspirin Low Dose CHEW TAB* 81 MG PO SCH (08:41)
[2017-03-25] MEDS: Metoprolol Tartrate TAB* 50 mg PO SCH ×2 (08:41→21:01)
[2017-03-25] MEDS: Omeprazole CAP* 20 MG PO SCH (08:41)
[2017-03-25] MEDS: NS 0.9% 1000 ML* 1,000 ML IV SCH ×2 (10:20→21:15)
--- NOTE | 2017-03-25 11:15 | PN ---
Subjective Date of Service: 03/25/17 Interval History: Patient seen and examined at bedside. Denies fever, chills, shortness of breath , chest discomfort, N/V/D. Pt states that his pain is controlled. Family History: Unchanged from Admission Social History: Unchanged from Admission Past Medical History: Findings - GI bleed d/t AVMs 2010 Objective Active Medications: Acetaminophen (Tylenol Tab*) 975 mg PO Q6H [facility] Albuterol/Ipratropium (Duoneb (Albuterol 2.5 Mg/Ipratropium 0.5 Mg)) 1 neb INH Q4H PRN Reason: SOB/WHEEZING Allopurinol (Zyloprim Tab*) 200 mg PO QAM [facility] Ascorbic Acid (Vitamin C Tab*) 500 mg PO QAM [facility] Aspirin (Aspirin Low Dose Tab*) 81 mg PO DAILY [facility] Atorvastatin Calcium (Lipitor*) 80 mg PO QPM [facility] Cholecalciferol (Vitamin D Tab*) 2,000 units PO QAM [facility] Citalopram Hydrobromide (Celexa Tab*) 20 mg PO QPM [facility] Dextrose (D50w Syringe 50 Ml*) 12.5 gm IV PUSH .FOR FS < 60 - SS PRN Reason: FS < 60 Docusate Sodium (Colace Cap*) 100 mg PO BID PRN Reason: CONSTIPATION Enoxaparin Sodium (Lovenox(*)) 30 mg SUBCUT Q24H [facility] Sodium Chloride (Ns 0.9% 1000 Ml*) 1,000 mls @ 100 mls/hr IV PER RATE [facility] Insulin Glargine (Lantus(*)) 20 units SUBCUT BEDTIME [facility] Insulin Human Lispro (Humalog*) 0 units SUBCUT AC [facility] Magnesium Hydroxide (Milk Of Magnesia Liq*) 30 ml PO BID PRN Reason: CONSTIPATION Metoprolol Tartrate (Lopressor Tab*) 50 mg PO BID [facility] Morphine Sulfate (Morphine Inj (Syringe)*) 4 mg IV Q4H PRN Reason: PAIN - UNCONTROLLED Omeprazole (Prilosec Cap*) 20 mg PO QAM [facility] Oxycodone/Acetaminophen (Percocet 5/325 Tab*) 1 tab PO Q4H PRN Reason: PAIN - MILD Oxycodone/Acetaminophen (Percocet 5/325 Tab*) 2 tab PO Q4H PRN Reason: PAIN - MODERATE Vital Signs - 8 hr 03/25/17 03/25/17 03/25/17 03:55 07:27 07:45 Temperature 97.9 F 97.4 F Pulse Rate 57 113 Respiratory 16 18 18 Rate Blood Pressure 100/52 103/50 (mmHg) O2 Sat by Pulse 96 97 97 Oximetry 03/25/17 08:55 Temperature Pulse Rate 95 Respiratory 15 Rate Blood Pressure (mmHg) O2 Sat by Pulse 98 Oximetry Oxygen Devices in Use Now: Nasal Cannula - 2L Appearance: NAD, sitting in a chair. Ears/Nose/Mouth/Throat: Mucous Membranes Moist Respiratory: Symmetrical Chest Expansion and Respiratory Effort, Clear to Auscultation Cardiovascular: NL Sounds; No Murmurs; No JVD, - - Hear rate irregular 2/6 murmur heard best at the left upper sternal border Abdominal: NL Sounds; No Tenderness; No Distention Extremities: - - Mild edema to left LE Skin: - - Areas of ecchymosis on extremities and left ear Neurological: Alert and Oriented x 3, NL Muscle Strength and Tone Lines/Tubes/Other Access: Clean, Dry and Intact Peripheral IV - site benign Result Diagrams: 03/25/17 05:21 03/25/17 05:21 Additional Lab and Data: Diagnostic Imaging: Echo - Severe pulmonary HTN, severe tricuspid regurg, mild to moderate aortic regurg, EF 65-70% EKG Data: EKG w/ A-fib, RBBB Assess/Plan/Problems-Billing Assessment: Mr. Peter is a 71 year old man with Type 2 diabetes, pulmonary hypertension, CKD, who was admitted with a LEFT subcapital hip fracture. - Patient Problems (1) Fracture of hip, left, closed Code(s): S72.002A - FRACTURE OF UNSP PART OF NECK OF LEFT FEMUR, INIT SNOMED Code(s): 836880972 Comment: - S/P left hip perc pinning, POD #2 - Management per ortho - Will avoid/limit opioids d/t CO2 retention - Continue pain management (standing tylenol), bowel regimen, OT/PT (2) Leukocytosis Code(s): D72.829 - ELEVATED WHITE BLOOD CELL COUNT, UNSPECIFIED SNOMED Code(s) : 517910705 Comment: - Resolved - No signs of PNA or UTI - Afebrile - Suspect secondary to stress response (3) Pulmonary hypertension Code(s): I27.20 - PULMONARY HYPERTENSION, UNSPECIFIED SNOMED Code(s): 98552087 Comment: - Cardiology consult, input appreciated (4) CAD (coronary artery disease) Code(s): I25.10 - ATHSCL HEART DISEASE OF [place] CORONARY ARTERY W/O ANG PCTRS SNOMED Code(s): 67706184 Comment: - s/p PCI/CABG - Asymptomatic - Continue ASA, statin and beta steve (5) CKD (chronic kidney disease) Code(s): N18.9 - CHRONIC KIDNEY DISEASE, UNSPECIFIED SNOMED Code(s): 456916919 Comment: - Acute on chronic - Creatinine continues to elevate - FeNA 0.6% - Prerenal. Will give IV fluids and recheck - Continue to hold spironolactone and torsemide (6) Diabetes type 2, controlled Priority: Medium Code(s): E11.9 - TYPE 2 DIABETES MELLITUS WITHOUT COMPLICATIONS SNOMED Code(s): 90513294 Comment: - Glucose 160-230's - Continue Lantus and Lispro SS (7) Atrial fibrillation Code(s): I48.91 - UNSPECIFIED ATRIAL FIBRILLATION SNOMED Code(s): 16690970 Comment: - Rate controlled - Pt is not anticoagulated at home - Continue metoprolol (8) COPD (chronic obstructive pulmonary disease) Code(s): J44.9 - CHRONIC OBSTRUCTIVE PULMONARY DISEASE, UNSPECIFIED SNOMED Code(s): 40629456 Comment: - With chronic hypoxic respiratory failure - No signs of acute exacerbation at this time - Uses 2L via Nc at home - Continue home medications (9) Hypertension Code(s): I10 - ESSENTIAL (PRIMARY) HYPERTENSION SNOMED Code(s): 23945328 Comment: - Normotensive - Continue metoprolol (10) Sleep apnea Code(s): G47.30 - SLEEP APNEA, UNSPECIFIED SNOMED Code(s): 41348393 Comment: - Continue CPAP at (11) DVT prophylaxis Code(s): MIX4768 - SNOMED Code(s): 153515896 Comment: - SCDs and ASA only due to elevated creatinine (12) Full code status Code(s): Z78.9 - OTHER SPECIFIED HEALTH STATUS SNOMED Code(s): 638124697 Status and Disposition: Inpatient, will need acute/subacute rehab at discharge.
[2017-03-25] MEDS ORDERED: oxyCODONE TAB* 5 MG TAB PO PRN (11:56)
[2017-03-25] MEDS: Enoxaparin(*) 30 MG/0.3 ML SYR SUBCUT SCH (17:05)
[2017-03-25] MEDS: Atorvastatin* 80 MG TAB PO SCH (18:08)
[2017-03-25] MEDS: Citalopram TAB* 20 MG PO SCH (18:08)
[2017-03-25] MEDS: Insulin GLARGINE(*) 1 UNITS UNIT SUBCUT SCH (20:59)
[2017-03-26 05:19] LABS: Hematocrit 26 % (42-52); Hemoglobin 8.5 g/dl (14.0-18.0)
[2017-03-26 05:34] LABS: EGFR Non-African American 21.5 (>60)
[2017-03-26] MEDS: Acetaminophen TAB* 325 MG PO SCH ×4 (06:14→23:55)
[2017-03-26] MEDS: NS 0.9% 1000 ML* 1,000 ML IV SCH ×2 (07:25→17:32)
[2017-03-26] MEDS: Insulin LISPRO* 1 UNITS UNIT SUBCUT SCH ×3 (08:53→17:22)
[2017-03-26] MEDS: Omeprazole CAP* 20 MG PO SCH (08:55)
[2017-03-26] MEDS: Ascorbic Acid TAB* 500 MG PO SCH (08:55)
[2017-03-26] MEDS: Allopurinol TAB* 100 MG PO SCH (08:56)
[2017-03-26] MEDS: Metoprolol Tartrate TAB* 50 mg PO SCH ×2 (08:56→21:32)
[2017-03-26] MEDS: Cholecalciferol TAB* 1000 UNITS PO SCH (08:56)
[2017-03-26] MEDS: Aspirin Low Dose CHEW TAB* 81 MG PO SCH (08:56)
--- NOTE | 2017-03-26 08:57 | PN ---
Progress Note - Progress Note Date of Service: 03/26/17 SOAP: Subjective: []Patient seen at bedside. He denies LLE pain, dizziness, shortness of breath, chest pain or nausea. Objective: [] Vital Signs Temp 98.1 F 03/26/17 03:58 Pulse 77 03/26/17 03:58 Resp 18 03/26/17 07:41 BP 111/42 03/26/17 03:58 Pulse Ox 98 03/26/17 07:41 Intake & Output 03/25/17 03/26/17 03/26/17 18:59 06:59 18:59 Intake Total 975 925 980 Output Total 525 200 175 Balance 450 725 805 Intake: IV Fluids 495 485 980 NS (0.9%) 495 485 980 Oral 480 440 Output: Urine 525 200 175 Other: Estimated Void Small Large # Bowel Movements 0 1 Estimated Stool Amount Large # Voids 1 1 Laboratory Last Values WBC 9.6 10^3/ul (3.5-10.8) 03/25/17 05:21 RBC 2.86 10^6/ul (4.0-5.4) L 03/25/17 05:21 Hgb 8.5 g/dl (14.0-18.0) L 03/26/17 04:44 Hct 26 % (42-52) L 03/26/17 04:44 MCV 92 fL (80-94) 03/25/17 05:21 MCH 30 pg (27-31) 03/25/17 05:21 MCHC 33 g/dl (31-36) 03/25/17 05:21 RDW 17 % (10.5-15) H 03/25/17 05:21 Plt Count 156 10^3/ul (150-450) 03/25/17 05:21 MPV 7 um3 (7.4-10.4) L 03/25/17 05:21 Neut % (Auto) 84.8 % (38-83) H 03/22/17 05:11 Lymph % (Auto) 4.3 % (25-47) L 03/22/17 05:11 Real % (Auto) 7.5 % (1-9) 03/22/17 05:11 Eos % (Auto) 2.9 % (0-6) 03/22/17 05:11 Baso % (Auto) 0.5 % (0-2) 03/22/17 05:11 Absolute Neuts (auto) 10.1 10^3/ul (1.5-7.7) H 03/22/17 05:11 Absolute Lymphs (auto) 0.5 10^3/ul (1.0-4.8) L 03/22/17 05:11 Absolute Monos (auto) 0.9 10^3/ul (0-0.8) H 03/22/17 05:11 Absolute Eos (auto) 0.3 10^3/ul (0-0.6) 03/22/17 05:11 Absolute Basos (auto) 0.1 10^3/ul (0-0.2) 03/22/17 05:11 Absolute Nucleated RBC 0 10^3/ul 03/22/17 05:11 Nucleated RBC % 0.1 03/22/17 05:11 Sodium 136 mmol/L (133-145) 03/26/17 04:44 Potassium 4.4 mmol/L (3.5-5.0) 03/26/17 04:44 Chloride 100 mmol/L (101-111) L 03/26/17 04:44 Carbon Dioxide 27 mmol/L (22-32) 03/26/17 04:44 Anion Gap 9 mmol/L (2-11) 03/26/17 04:44 BUN 138 mg/dL (6-24) H 03/26/17 04:44 Creatinine 2.91 mg/dL (0.67-1.17) H 03/26/17 04:44 Est GFR ( Amer) 27.6 (>60) 03/26/17 04:44 Est GFR (Non-Af Amer) 21.5 (>60) 03/26/17 04:44 BUN/Creatinine Ratio 47.4 (8-20) H 03/26/17 04:44 Glucose 154 mg/dL (70-100) H 03/26/17 04:44 POC Glucose (mg/dL) 208 mg/dL (70-100) H 03/26/17 07:26 Calcium 8.1 mg/dL (8.6-10.3) L 03/26/17 04:44 Total Bilirubin 0.40 mg/dL (0.2-1.0) 03/21/17 11:41 AST 27 U/L (13-39) 03/21/17 11:41 ALT 19 U/L (7-52) 03/21/17 11:41 Alkaline Phosphatase 56 U/L (34-104) 03/21/17 11:41 Total Protein 6.8 g/dL (6.4-8.9) 03/21/17 11:41 Albumin 3.7 g/dL (3.2-5.2) 03/21/17 11:41 Globulin 3.1 g/dL (2-4) 03/21/17 11:41 Albumin/Globulin Ratio 1.2 (1-3) 03/21/17 11:41 Urine Color Straw 03/21/17 11:41 Urine Appearance Clear 03/21/17 11:41 Urine pH 5.0 (5-9) 03/21/17 11:41 Ur Specific [place] 1.011 (1.010-1.030) 03/21/17 11:41 Urine Protein Negative (Negative) 03/21/17 11:41 Urine Ketones Negative (Negative) 03/21/17 11:41 Urine Blood Negative (Negative) 03/21/17 11:41 Urine Nitrate Negative (Negative) 03/21/17 11:41 Urine Bilirubin Negative (Negative) 03/21/17 11:41 Urine Urobilinogen Negative (Negative) 03/21/17 11:41 Ur Leukocyte Esterase Negative (Negative) 03/21/17 11:41 Ur Random Creatinine 81.88 mg/dL 03/24/17 10:45 Ur Random Sodium 21 mmol/L 03/24/17 10:45 Urine Glucose Negative (Negative) 03/21/17 11:41 Urine Ascorbic Acid * (Negative) H 03/21/17 11:41 Influenza A (Rapid) Negative (Negative) 03/21/17 13:48 Influenza B (Rapid) Negative (Negative) 03/21/17 13:48 Blood Type B Positive 03/21/17 11:41 Antibody Screen Negative 03/21/17 11:41 Crossmatch See Detail 03/21/17 11:41 General: Well appearing, NAD LLE: Dressing changed. Dressing bloody though no active bleeding. Incision CDI without erythema. DF/PF intact. 2+ DP pulse BL LE: calves supple and nontender without erythema, edema or palpable cords Assessment: []Percutaneous pinning left hip fracture 03/23/17 Dr Vasquez Plan: []WBAT for transfers, 50%for ambulation Requires rehab at [place], tentatively tomorrow- [facility] and [facility] have both made bed offers DVT propylaxis ASA 81 mg per hospitalist due to elevated creatinine, hx AVM
--- NOTE | 2017-03-26 10:01 | PN ---
Progress Note - Progress Note Date of Service: 03/26/17 SOAP: Subjective: denies pain or SOB. sleepy but recently given pain meds. Objective: Vital Signs Temp Pulse Resp BP Pulse Ox 98.1 F 77 16 111/42 98 03/26/17 03:58 03/26/17 09:06 03/26/17 09:06 03/26/17 03:58 03/26/17 09:06 perr eomi op dry scattered ecchymoses s1 s2 II/ CARMELA CTA anteriorly soft nt +Bs no le edema left leg dressing intact A+O x 2 (March 1917) Laboratory Results - last 24 hr 03/25/17 03/25/17 03/26/17 12:31 16:59 04:44 Hgb 8.5 L Hct 26 L Sodium Potassium Chloride Carbon Dioxide Anion Gap BUN Creatinine Est GFR ( Amer) Est GFR (Non-Af Amer) BUN/Creatinine Ratio Glucose POC Glucose (mg/dL) 232 H 221 H Calcium 03/26/17 03/26/17 04:44 07:26 Hgb Hct Sodium 136 Potassium 4.4 Chloride 100 L Carbon Dioxide 27 Anion Gap 9 BUN 138 H Creatinine 2.91 H Est GFR ( Amer) 27.6 Est GFR (Non-Af Amer) 21.5 BUN/Creatinine Ratio 47.4 H Glucose 154 H POC Glucose (mg/dL) 208 H Calcium 8.1 L Assessment: 71 yo M w multiple medical problems including long standing anemia, partially iron deficiency and likely also related to a mild MDS, previously treated with IV iron and most recently aranespt 200 mcg q2 weeks for Hb <10. Per Dr. Tolentino tolerates Hb under 9 very poorly in terms of breathing (ok today at 8.5 but not ambulatory). Now sp fall and hip fracture repair. Hb lower likely postoperatively/blood loss. will give 200 mcg aranesp today but would not discharge with Hb <9 so may need 1 unit of blood.
[2017-03-26] MEDS ORDERED: DARBEPOETIN ALFA 200 MCG/0.4 ML SUBCUT ONE (10:30)
[2017-03-26] MEDS: Atorvastatin* 80 MG TAB PO SCH (17:19)
[2017-03-26] MEDS: Citalopram TAB* 20 MG PO SCH (17:19)
--- NOTE | 2017-03-26 21:04 | PN ---
Subjective Date of Service: 03/26/17 Interval History: Patient seen and examined at bedside. Denies fever, chills, shortness of breath , chest discomfort, N/V/D. Pt states that his pain is controlled. Discussed with Pt and Xochitl (over the phone) about getting a blood transfusion tonight. They both agree with a blood transfusion tonight. Xochitl () is worried if Robson will be able to get Aranesp at the care home and doesn't want him transported until she finds out this information. Consent for blood transfusion obtained from both the patient and Xochitl ( over the phone). Family History: Unchanged from Admission Social History: Unchanged from Admission Past Medical History: Findings - GI bleed d/t AVMs 2011, MDS Objective Active Medications: Acetaminophen (Tylenol Tab*) 975 mg PO Q6H TRENA Albuterol/Ipratropium (Duoneb (Albuterol 2.5 Mg/Ipratropium 0.5 Mg)) 1 neb INH Q4H PRN Reason: SOB/WHEEZING Allopurinol (Zyloprim Tab*) 200 mg PO QAM TRENA Ascorbic Acid (Vitamin C Tab*) 500 mg PO QAM TRENA Aspirin (Aspirin Low Dose Tab*) 81 mg PO DAILY [facility] Atorvastatin Calcium (Lipitor*) 80 mg PO QPM TRENA Cholecalciferol (Vitamin D Tab*) 2,000 units PO QAM TRENA Citalopram Hydrobromide (Celexa Tab*) 20 mg PO QPM [facility] Dextrose (D50w Syringe 50 Ml*) 12.5 gm IV PUSH .FOR FS < 60 - SS PRN Reason: FS < 60 Docusate Sodium (Colace Cap*) 100 mg PO BID PRN Reason: CONSTIPATION Sodium Chloride (Ns 0.9% 1000 Ml*) 1,000 mls @ 100 mls/hr IV PER RATE TRENA Insulin Glargine (Lantus(*)) 20 units SUBCUT BEDTIME TRENA Insulin Human Lispro (Humalog*) 0 units SUBCUT AC TRENA Magnesium Hydroxide (Milk Of Magnesia Liq*) 30 ml PO BID PRN Reason: CONSTIPATION Metoprolol Tartrate (Lopressor Tab*) 50 mg PO BID TRENA Morphine Sulfate (Morphine Inj (Syringe)*) 4 mg IV Q4H PRN Reason: PAIN - UNCONTROLLED Omeprazole (Prilosec Cap*) 20 mg PO QAM [facility] Oxycodone HCl (Roxycodone Tab*) 5 mg PO Q4H PRN Reason: PAIN - UNCONTROLLED Vital Signs - 8 hr 03/26/17 16:08 Temperature 97.7 F Pulse Rate 72 Respiratory 18 Rate Blood Pressure 115/49 (mmHg) O2 Sat by Pulse 98 Oximetry Oxygen Devices in Use Now: Nasal Cannula - 2L Appearance: NAD, laying in bed Ears/Nose/Mouth/Throat: Mucous Membranes Moist Respiratory: Symmetrical Chest Expansion and Respiratory Effort, Clear to Auscultation Cardiovascular: NL Sounds; No Murmurs; No JVD Abdominal: NL Sounds; No Tenderness; No Distention Extremities: - - Mild edema to left LE Skin: - - Dressing to left hip clean, dry and intact. Neurological: Alert and Oriented x 3, NL Muscle Strength and Tone Lines/Tubes/Other Access: Clean, Dry and Intact Peripheral IV - site benign Nutrition: Taking PO's Result Diagrams: 03/26/17 04:44 03/26/17 04:44 Additional Lab and Data: Diagnostic Imaging: Echo - Severe pulmonary HTN, severe tricuspid regurg, mild to moderate aortic regurg, EF 65-70% EKG Data: EKG w/ A-fib, RBBB Assess/Plan/Problems-Billing Assessment: Mr. Peter is a 71 year old man with Type 2 diabetes, pulmonary hypertension, CKD, who was admitted with a LEFT subcapital hip fracture. - Patient Problems (1) Fracture of hip, left, closed Code(s): S72.002A - FRACTURE OF UNSP PART OF NECK OF LEFT FEMUR, INIT SNOMED Code(s): 137087351 Comment: - S/P left hip perc pinning, POD #3 - Management per ortho - Will avoid/limit opioids d/t CO2 retention - Continue pain management (standing tylenol), bowel regimen, OT/PT (2) Leukocytosis Code(s): D72.829 - ELEVATED WHITE BLOOD CELL COUNT, UNSPECIFIED SNOMED Code(s) : 428037702 Comment: - Resolved - No signs of PNA or UTI - Afebrile - Suspect secondary to stress response (3) MDS (myelodysplastic syndrome) Code(s): D46.9 - MYELODYSPLASTIC SYNDROME, UNSPECIFIED SNOMED Code(s): 427493669 Comment: - PT follows with Dr. Tolentino - Hematology consult, input appreciated - Pt received a dose of Aranesp today - Pt doesn't tolerating Hgb < [address] Tolentino - Will give a unit of PRBCs tonight and see if we can get him > 9 (4) Pulmonary hypertension Code(s): I27.20 - PULMONARY HYPERTENSION, UNSPECIFIED SNOMED Code(s): 97919744 Comment: - Cardiology consult, input appreciated (5) CAD (coronary artery disease) Code(s): I25.10 - ATHSCL HEART DISEASE OF [place] CORONARY ARTERY W/O ANG PCTRS SNOMED Code(s): 48304468 Comment: - s/p PCI/CABG - Asymptomatic - Continue ASA, statin and beta steve (6) CKD (chronic kidney disease) Code(s): N18.9 - CHRONIC KIDNEY DISEASE, UNSPECIFIED SNOMED Code(s): 628805943 Comment: - Acute on chronic - Creatinine improving with IVFs - FeNA 0.6% - Prerenal. - Continue to hold spironolactone and torsemide - Continue IVFs and recheck in the AM (7) Diabetes type 2, controlled Priority: Medium Code(s): E11.9 - TYPE 2 DIABETES MELLITUS WITHOUT COMPLICATIONS SNOMED Code(s): 43311202 Comment: - Glucose 160-200's - Continue Lantus and Lispro SS (8) Atrial fibrillation Code(s): I48.91 - UNSPECIFIED ATRIAL FIBRILLATION SNOMED Code(s): 57811679 Comment: - Rate controlled - Pt is not anticoagulated at home - Continue metoprolol (9) COPD (chronic obstructive pulmonary disease) Code(s): J44.9 - CHRONIC OBSTRUCTIVE PULMONARY DISEASE, UNSPECIFIED SNOMED Code(s): 91051966 Comment: - With chronic hypoxic respiratory failure - No signs of acute exacerbation at this time - Uses 2L via Nc at home - Continue home medications (10) Hypertension Code(s): I10 - ESSENTIAL (PRIMARY) HYPERTENSION SNOMED Code(s): 22361515 Comment: - Normotensive, but soft - Continue metoprolol (11) Sleep apnea Code(s): G47.30 - SLEEP APNEA, UNSPECIFIED SNOMED Code(s): 92369757 Comment: - Continue CPAP at HS (12) DVT prophylaxis Code(s): YYZ7020 - SNOMED Code(s): 970901082 Comment: - SCDs and ASA only due to elevated creatinine (13) Full code status Code(s): Z78.9 - OTHER SPECIFIED HEALTH STATUS SNOMED Code(s): 826428338 Status and Disposition: Inpatient. Plan for discharge to [facility] in AM if Hgb > 9.
[2017-03-26] MEDS: Insulin GLARGINE(*) 1 UNITS UNIT SUBCUT SCH (21:32)
[2017-03-27 05:53] LABS: Hematocrit 28 % (42-52); Hemoglobin 9.3 g/dl (14.0-18.0)
[2017-03-27] MEDS: NS 0.9% 1000 ML* 1,000 ML IV SCH (06:14)
[2017-03-27] MEDS: Acetaminophen TAB* 325 MG PO SCH (06:15)
[2017-03-27] MEDS: Insulin LISPRO* 1 UNITS UNIT SUBCUT SCH (07:30)
[2017-03-27 08:06] VITALS: BP 115/44
[2017-03-27] MEDS: Ascorbic Acid TAB* 500 MG PO SCH (08:54)
[2017-03-27] MEDS: Cholecalciferol TAB* 1000 UNITS PO SCH (08:54)
[2017-03-27] MEDS: Omeprazole CAP* 20 MG PO SCH (08:54)
[2017-03-27] MEDS: Metoprolol Tartrate TAB* 50 mg PO SCH (08:54)
[2017-03-27] MEDS: Allopurinol TAB* 100 MG PO SCH (08:54)
[2017-03-27] MEDS: Aspirin Low Dose CHEW TAB* 81 MG PO SCH (08:55)
--- NOTE | 2017-03-27 09:18 | PN ---
Subjective Date of Service: 03/27/17 Interval History: Patient seen and examined at bedside. Denies fever, chills, shortness of breath , chest discomfort, N/V/D. Pt states that his pain is controlled. Family History: Unchanged from Admission Social History: Unchanged from Admission Past Medical History: Findings - GI bleed d/t AVMs 2011, MDS Objective Active Medications: Acetaminophen (Tylenol Tab*) 975 mg PO Q6H TRENA Albuterol/Ipratropium (Duoneb (Albuterol 2.5 Mg/Ipratropium 0.5 Mg)) 1 neb INH Q4H PRN Reason: SOB/WHEEZING Allopurinol (Zyloprim Tab*) 200 mg PO QAM TRENA Ascorbic Acid (Vitamin C Tab*) 500 mg PO QAM [facility] Aspirin (Aspirin Low Dose Tab*) 81 mg PO DAILY [facility] Atorvastatin Calcium (Lipitor*) 80 mg PO QPM TRENA Cholecalciferol (Vitamin D Tab*) 2,000 units PO QAM TRENA Citalopram Hydrobromide (Celexa Tab*) 20 mg PO QPM [facility] Dextrose (D50w Syringe 50 Ml*) 12.5 gm IV PUSH .FOR FS < 60 - SS PRN Reason: FS < 60 Docusate Sodium (Colace Cap*) 100 mg PO BID PRN Reason: CONSTIPATION Sodium Chloride (Ns 0.9% 1000 Ml*) 1,000 mls @ 100 mls/hr IV PER RATE [facility] Insulin Glargine (Lantus(*)) 20 units SUBCUT BEDTIME TRENA Insulin Human Lispro (Humalog*) 0 units SUBCUT AC TRENA Magnesium Hydroxide (Milk Of Magnesia Liq*) 30 ml PO BID PRN Reason: CONSTIPATION Metoprolol Tartrate (Lopressor Tab*) 50 mg PO BID TRENA Morphine Sulfate (Morphine Inj (Syringe)*) 4 mg IV Q4H PRN Reason: PAIN - UNCONTROLLED Omeprazole (Prilosec Cap*) 20 mg PO QAM TRENA Oxycodone HCl (Roxycodone Tab*) 5 mg PO Q4H PRNReason: PAIN - UNCONTROLLED Vital Signs - 8 hr 03/27/17 03/27/17 03/27/17 01:20 03:22 04:47 Temperature 97.8 F 97.9 F Pulse Rate 74 60 Respiratory 18 16 Rate Blood Pressure 113/60 112/53 (mmHg) O2 Sat by Pulse 94 93 93 Oximetry 03/27/17 03/27/17 03/27/17 07:45 08:00 08:55 Temperature 97.8 F Pulse Rate 70 Respiratory 24 18 21 Rate Blood Pressure 115/44 (mmHg) O2 Sat by Pulse 98 Oximetry Oxygen Devices in Use Now: Nasal Cannula - 2L Appearance: NAD, laying in bed Ears/Nose/Mouth/Throat: Mucous Membranes Moist Respiratory: Symmetrical Chest Expansion and Respiratory Effort, Clear to Auscultation Cardiovascular: NL Sounds; No Murmurs; No JVD, RRR Abdominal: NL Sounds; No Tenderness; No Distention Extremities: - - Mild edema to left LE Skin: - - Dressing to left hip clean, dry and intact Neurological: Alert and Oriented x 3 Lines/Tubes/Other Access: Clean, Dry and Intact Peripheral IV - site benign Nutrition: Taking PO's Result Diagrams: 03/27/17 05:12 03/27/17 05:12 Additional Lab and Data: Diagnostic Imaging: Echo - Severe pulmonary HTN, severe tricuspid regurg, mild to moderate aortic regurg, EF 65-70% EKG Data: EKG w/ A-fib, RBBB Assess/Plan/Problems-Billing Assessment: Mr. Peter is a 71 year old man with Type 2 diabetes, pulmonary hypertension, CKD, who was admitted with a LEFT subcapital hip fracture. - Patient Problems (1) Fracture of hip, left, closed Code(s): S72.002A - FRACTURE OF UNSP PART OF NECK OF LEFT FEMUR, INIT SNOMED Code(s): 614631147 Comment: - S/P left hip perc pinning, POD #4 - Management per ortho - Will avoid/limit opioids d/t CO2 retention - Continue pain management (standing tylenol), bowel regimen, OT/PT (2) Leukocytosis Code(s): D72.829 - ELEVATED WHITE BLOOD CELL COUNT, UNSPECIFIED SNOMED Code(s) : 193358043 Comment: - Resolved - No signs of PNA or UTI - Afebrile - Suspect secondary to stress response (3) MDS (myelodysplastic syndrome) Code(s): D46.9 - MYELODYSPLASTIC SYNDROME, UNSPECIFIED SNOMED Code(s): 999514592 Comment: - PT follows with Dr. Tolentino - Hematology consult, input appreciated - Pt received a dose of Aranesp today - Pt doesn't tolerating Hgb < [address] Tolentino - Hgb 9.3 this AM, plan for Q2 week HH (4) Pulmonary hypertension Code(s): I27.20 - PULMONARY HYPERTENSION, UNSPECIFIED SNOMED Code(s): 91311843 Comment: - Cardiology consult, input appreciated (5) CAD (coronary artery disease) Code(s): I25.10 - ATHSCL HEART DISEASE OF [place] CORONARY ARTERY W/O ANG PCTRS SNOMED Code(s): 42995559 Comment: - s/p PCI/CABG - Asymptomatic - Continue ASA, statin and beta steve (6) CKD (chronic kidney disease) Code(s): N18.9 - CHRONIC KIDNEY DISEASE, UNSPECIFIED SNOMED Code(s): 380042067 Comment: - Acute on chronic - Creatinine improving with IVFs - FeNA 0.6% - Prerenal. - Continue to hold spironolactone and torsemide - Continue IVFs and recheck in the AM (7) Diabetes type 2, controlled Priority: Medium Code(s): E11.9 - TYPE 2 DIABETES MELLITUS WITHOUT COMPLICATIONS SNOMED Code(s): 72256138 Comment: - Glucose 70-160's - Continue Lantus and Lispro SS (8) Atrial fibrillation Code(s): I48.91 - UNSPECIFIED ATRIAL FIBRILLATION SNOMED Code(s): 05895671 Comment: - Rate controlled - Pt is not anticoagulated at home - Continue metoprolol (9) COPD (chronic obstructive pulmonary disease) Code(s): J44.9 - CHRONIC OBSTRUCTIVE PULMONARY DISEASE, UNSPECIFIED SNOMED Code(s): 53862845 Comment: - With chronic hypoxic respiratory failure - No signs of acute exacerbation at this time - Uses 2L via Nc at home - Continue home medications (10) Hypertension Code(s): I10 - ESSENTIAL (PRIMARY) HYPERTENSION SNOMED Code(s): 99401787 Comment: - Normotensive, but soft - Continue metoprolol (11) Sleep apnea Code(s): G47.30 - SLEEP APNEA, UNSPECIFIED SNOMED Code(s): 27291054 Comment: - Continue CPAP at HS (12) DVT prophylaxis Code(s): WTB1013 - SNOMED Code(s): 305401606 Comment: - SCDs and ASA only due to elevated creatinine (13) Full code status Code(s): Z78.9 - OTHER SPECIFIED HEALTH STATUS SNOMED Code(s): 677455166 Status and Disposition: Inpatient. Stable for discharge to [facility] this AM.
--- NOTE | 2017-03-27 11:58 | DS ---
CC: [facility]; Dr. Jorje Sanchez; Dr. Felipe Mckeon; Dr. Murphy Vasquez* DATE OF ADMISSION: 03/21/2017. DATE OF DISCHARGE: 03/27/2017. ATTENDING PHYSICIAN: Dr. Jael Quinones* (dictated by Luzma Foy NP). PRIMARY CARE PHYSICIAN: Dr. Jorje Sanchez. INVESTIGATIVE SHOPPER: Dr. Felipe Mckeon. PRIMARY DIAGNOSES: 1. Left hip fracture, status post left hip percutaneous pinning on March 23. 2. Acute on chronic kidney injury. 3. Anemia secondary to MDS and acute blood loss. 4. Leukocytosis, resolved. SECONDARY DIAGNOSES: 1. Coronary artery disease. 2. Diabetes mellitus type 2. 3. Atrial fibrillation. 4. COPD. 5. Hypertension. 6. Sleep apnea. 7. MDS. CONSULTATIONS WHILE IN THE HOSPITAL: Dr. Migel Muller with Cardiology; Dr. Murphy Vasquez with Orthopedic Surgery; Dr. Daniela Ahuja with Oncology. PROCEDURES WHILE IN THE HOSPITAL: Status post left hip percutaneous pinning on 03/23/[address] Murphy Vasquez. STUDIES WHILE IN THE HOSPITAL: 1. Left hip/pelvis x-ray, 03/20/2017: Radiologist's impression: Impacted subcapital femoral neck fracture on the left. 2. Brain CT, 03/21/2017: Radiologist's impression: No acute intracranial pathology. Diffuse involutional change with chronic small vessel ischemic changes. 3. Cervical spine CT, 03/21/2017: Radiologist's impression: Degenerative disk disease and osteoarthritis. No acute osseous injury to the cervical spine. 4. Chest x-ray, 03/21/2017: Radiologist's impression: Low lung volumes. No active cardiopulmonary disease. 5. Left hip x-ray, 03/21/2017: Radiologist's impression: Limited study. Again noted is an impacted subcapital femoral neck fracture. 6. Transthoracic echocardiogram, 03/22/2017: R D Manager's conclusion: The left ventricular chamber size is normal. Moderate concentric left ventricular hypertrophy is observed. There is normal left ventricular systolic function. The estimated LV ejection fraction is 65 to 70 percent. Post surgical hypokinesis of the interventricular septum is observed consistent with valve replacement and/or RV pressure/volume overload. The left atrium is moderately dilated. The right ventricle is moderately dilated. The right ventricular global systolic function is mildly to moderately reduced. Aortic bioprosthesis present with no evidence of significant obstruction by Doppler evaluation. There is mild to moderate aortic regurgitation, mechanism not well appreciated on transthoracic imaging. Severe mitral annular calcification without any significant stenosis by Doppler evaluation. There is severe tricuspid regurgitation. There is evidence of severe pulmonary hypertension. The right ventricular systolic pressure is estimated at 80 mmHg (at time of systolic BP 122 mmHg). Compared to prior study from September 2014, the degree of tricuspid regurgitation has worsened (was mild previously). 7. Left hip x-ray, 03/23/2017: Fluoroscopy was provided for a surgical procedure. 8. Chest x-ray, 03/24/2017: Radiologist's impression: Density obscuring the right lung base is partially due to chronic elevation of the right hemidiaphragm , but potentially could be worse due to atelectasis, consolidation and/or pleural effusion. The pulmonary vasculature appears engorged and indistinct consistent with cardiogenic pulmonary edema. DISCHARGE MEDICATIONS: New home medications: 1. Acetaminophen 975 mg oral every 6 hours. 2. Colace 100 mg oral twice daily as needed for constipation. 3. Milk of Magnesia 30 ml oral twice daily as needed for constipation. 4. Oxycodone 5 mg oral every 4 hours as needed for uncontrolled pain. Continued home medications: 1. Thiamine 100 mg oral every morning. 2. Senna one tablet oral twice daily. 3. Omeprazole 20 mg oral every morning. 4. Folic acid 400 mcg oral every morning. 5. Celexa 20 mg oral every morning. 6. Azelastine HCL one spray to both nares twice daily. 7. Atorvastatin 80 mg oral every morning. 8. Aspirin 81 mg oral every morning. 9. Vitamin C 500 mg oral every morning. 10. Nasonex one spray to both nares twice daily. 11. Metoprolol Tartrate 50 mg oral twice daily. 12. Ferrous Sulfate 650 mg oral every morning. 13. Combivent Respimat 20/100 one puff inhalation 4 times daily. 14. Allopurinol 200 mg oral every morning. 15. Ipratropium [place] two sprays to both nares twice daily. 16. Glipizide 5 mg oral twice daily. 17. Vitamin D 2,000 units oral every morning. 18. Calcitriol 0.25 mcg oral every other day. 19. Ketoconazole 2% use as directed. 20. Flovent HFA two puffs inhalation twice daily. 21. Xylitol one tab oral 4 times daily. Changed home medication: Lantus insulin decreased from 25 units to 20 units subcutaneous at bedtime. Discontinued home medication: Amoxicillin. Medications for discussion at follow-up: Torsemide, Spironolactone, Metolazone. HISTORY OF PRESENT ILLNESS/HOSPITAL COURSE: Mr. Osorio is a 71-year-old man with a past medical history significant for severe pulmonary hypertension, aortic valve replacement in 2010, coronary artery disease status post one vessel CABG, and diabetes mellitus who presented to the hospital after falling at home. The patient had reported being in his previous state of health the night prior when he had tripped and fallen. He denied any loss of consciousness. He laid on the floor from 9:00 p.m. until midnight when he was helped up by his daughter and into bed. The patient developed excruciating pain with ambulation, but was able to walk with a walker. In the morning he continued to have pain; therefore, he presented to the emergency room for further evaluation. While in the emergency room, the patient had a hip and pelvis x-ray showing an impacted subcapital femoral neck fracture of the left. He had a brain CT with no acute findings and a CT of his cervical spine without acute findings. At baseline, the patient reported not being very ambulatory prior to his fall. He follows with Dr. Griffin with Cardiology. Due to the patient's hip fracture, the Hospitalists were asked to evaluate the patient for admission. During the patient's hospital stay, he was seen in consultation by Orthopedic Surgery who performed a percutaneous hip pinning on March 23. Prior to his surgery, he was seen in consultation by Dr. Migel Muller with Cardiology to evaluate his severe pulmonary hypertension. At that time, it was recommended to proceed with surgery, but that the patient was at high risk. It was recommended to resume his aspirin as soon as possible after the surgery. During his stay, he was also found to have acute kidney injury. This was prerenal in nature. He received some gentle IV hydration and his renal function was starting to improve. His diuretics were held to assist with this. During his stay, his glucoses have been fairly well controlled. The patient is doing well, but it was felt that he needed to have rehab. He was also seen in consultation by Hematology who follows him for MDS and gave him a dose of Aranesp on March 26 and recommended not to discharge the patient without a hemoglobin of greater than 9 as he does not tolerate hemoglobins less than 10 very well. Due to this, the patient received one unit of packed red blood cells on the evening of March 26. Mr. Osorio is stable for discharge to [facility] today. Vital signs are as follows: Temperature 97.8, heart 70, respiration rate 18, O2 sat 98 percent on 2 liters nasal cannula, blood pressure 115/48. DISCHARGE PLAN: Mr. Osorio will be discharged to [facility]. Activity as tolerated. He can weightbearing as tolerated for transfers, but for ambulation he should be 50 percent weightbearing. He should have daily dry dressing changes to his left hip incision. He should be seen in follow-up by Dr. Vasquez in one month. As far as the patient's MDS, he should have CBC's checked every other week; the next one is due on April 08. The results should be forwarded to Dr. Mckeon's office and the patient will be prescribed Aranesp as indicated. The patient also has a follow-up appointment with Dr. Mckeon on April 20 at 10:20 a.m. at the [facility] office. As far as the patient's acute renal injury, this is improving during his stay. I recommend continuing to hold is diuretics until Thursday and then rechecking a BMP and restarting Torsemide initially at 20 mg daily for five days and then titrate back up to b.i.d. as his renal function allows. Also continue to monitor his renal function and resume his Spironolactone and Metolazone at provider discretion. He should have sita removed in 10 to 14 days postop. He should have physical therapy and occupational therapy evaluation and treat. The patient should return to the emergency room for any shortness of breath or chest pain. This is a summarized report of a complex medical history and hospital stay. For further details, please see the entire medical record. Time for this discharge was approximately 50 minutes, greater than half of that was spent with the patient discussing discharge plan and instructions. CONDITION ON DISCHARGE: Stable. LUZMA FOY, MORNING SHOW PRODUCER [id number]/[facility] #: [id number] ABHINAV
== END 2017-03-27 11:58 | DRG 481 ==
LOC: ED 10:50 → SSU 15:24 → ICU 03-23 14:55 → SSU 03-24 12:31
PROVIDERS: ADMIT Internal Medicine; ATTEND Internal Medicine
PROC: 0QH734Z Insertion of Internal Fixation Device into Left Upper Femur, Percutaneous Approach (ICD-10-PCS; principal; 2017-03-23 16:00)
PROC: 30233N1 Transfusion of Nonautologous Red Blood Cells into Peripheral Vein, Percutaneous Approach (ICD-10-PCS; 2017-03-26)
DX: S72.012A Unspecified intracapsular fracture of left femur, initial encounter for closed fracture (principal); I13.0 Hypertensive heart and chronic kidney disease with heart failure and stage 1 through stage 4 chronic kidney disease, or unspecified chronic kidney disease; N18.4 Chronic kidney disease, stage 4 (severe); J96.11 Chronic respiratory failure with hypoxia; E11.22 Type 2 diabetes mellitus with diabetic chronic kidney disease; N17.9 Acute kidney failure, unspecified; E11.36 Type 2 diabetes mellitus with diabetic cataract; I08.3 Combined rheumatic disorders of mitral, aortic and tricuspid valves; Q27.30 Arteriovenous malformation, site unspecified; D62 Acute posthemorrhagic anemia; I27.20 Pulmonary hypertension, unspecified; E11.51 Type 2 diabetes mellitus with diabetic peripheral angiopathy without gangrene; I50.9 Heart failure, unspecified; I48.91 Unspecified atrial fibrillation; W17.89XA Other fall from one level to another, initial encounter; J44.9 Chronic obstructive pulmonary disease, unspecified; K21.9 Gastro-esophageal reflux disease without esophagitis; I25.10 Atherosclerotic heart disease of native coronary artery without angina pectoris; I45.10 Unspecified right bundle-branch block; D72.829 Elevated white blood cell count, unspecified; M50.30 Other cervical disc degeneration, unspecified cervical region; M47.892 Other spondylosis, cervical region; M10.9 Gout, unspecified; E78.5 Hyperlipidemia, unspecified; G47.33 Obstructive sleep apnea (adult) (pediatric); D46.Z Other myelodysplastic syndromes; H91.90 Unspecified hearing loss, unspecified ear; F32.9 Major depressive disorder, single episode, unspecified; Z95.5 Presence of coronary angioplasty implant and graft; Y92.003 Bedroom of unspecified non-institutional (private) residence as the place of occurrence of the external cause; Z88.1 Allergy status to other antibiotic agents; Z97.4 Presence of external hearing-aid; Z72.89 Other problems related to lifestyle; Z87.891 Personal history of nicotine dependence; Z95.1 Presence of aortocoronary bypass graft; Z89.422 Acquired absence of other left toe(s); Z82.3 Family history of stroke; Z95.2 Presence of prosthetic heart valve; Z99.81 Dependence on supplemental oxygen; Z79.82 Long term (current) use of aspirin; Z79.4 Long term (current) use of insulin
CPT/HCPCS: 36415; 36620; 70450; 71045; 72125; 80048; 80053; 81003; 82570; 84300; 85014; 85018; 85025; 85027; 86850; 86900; 86901; 86922; 87502; 93005; 93306; 94760; A9270-GY; C1713; J0690; J0881; J1650; J2001; J2250; J2270; P9040

== ENCOUNTER 2017-08-04 14:21 | Inpatient (IN) | payer MEDICARE, BC ==
--- NOTE | 2017-08-04 15:10 | RAD ---
HISTORY: head trauma after mechanical fall. On thinners COMPARISONS: March 21, 2017 TECHNIQUE: Multiple contiguous axial CT scans were obtained of the head without intravenous contrast. FINDINGS: HEMORRHAGE/INFARCT: There is a left frontoparietal acute subdural hematoma measuring 1.7 cm in depth. There is a small associated subarachnoid component. Elsewhere, there is no hemorrhage or acute infarct. MASSES/SHIFT: There is 1 cm subfalcine shift to the right. There is partial effacement of the basal cisterns. EXTRA-AXIAL SPACES: As noted above, there is 1.7 cm deep acute frontoparietal left subdural hematoma with a small amount of subarachnoid hemorrhage along the insula and left temporal lobe. There is small amount of subdural hematoma along the right frontal pole and along the falx, measuring up to 0.5 cm. SULCI AND VENTRICLES: There is mass effect on the left lateral ventricle. CEREBRUM: There is mild patchy attenuation of the periventricular and subcortical white matter, stable from the previous examination. BRAINSTEM: There are no focal parenchymal abnormalities. CEREBELLUM: There are no focal parenchymal abnormalities. VESSELS: The vessels are grossly normal. PARANASAL SINUSES: The paranasal sinuses are clear. ORBITS: The orbits are unremarkable. BONES AND SOFT TISSUE: No bone or soft tissue abnormalities are noted. OTHER: None IMPRESSION: 1. ACUTE LEFT FRONTOPARIETAL SUBDURAL HEMATOMA WITH 1 CM OF SUBFALCINE SHIFT TO THE RIGHT AND PARTIAL EFFACEMENT OF THE BASAL CISTERNS. 2. THERE IS A SMALL SUBARACHNOID COMPONENT ALONG THE INSULA AND LEFT TEMPORAL LOBE. 3. THERE IS A SMALL RIGHT FRONTAL AND LEFT FALCINE SUBDURAL HEMATOMA. PRELIMINARY FINDINGS WERE DISCUSSED WITH DR. CHANDLER IN THE EMERGENCY DEPARTMENT AT APPROXIMATELY 3:06 PM ON AUGUST 04, 2017.
[2017-08-04] MEDS ORDERED: levETIRAcetam IV* 500 MG in NS 0.9% 100 ML* 100 ML IVPB ONE (15:25)
[2017-08-04 15:32] LABS: ABS Basophils 0.1 10^3/ul (0-0.2); ABS Eosinophils 0.2 10^3/ul (0-0.6); ABS Lymphocytes 0.8 10^3/ul (1.0-4.8); ABS Monocytes 0.6 10^3/ul (0-0.8); ABS Neutrophils 8.5 10^3/ul (1.5-7.7); ABS Nucleated RBC 0 10^3/ul; Eosinophil % 1.5 % (0-6); Hematocrit 31 % (42-52); Hemoglobin 10.1 g/dl (14.0-18.0); Lymphocyte % 8.2 % (25-47); Mean Corpuscular HGB Conc 32 g/dl (31-36); Mean Corpuscular Hemoglobin 29 pg (27-31); Mean Corpuscular Volume 89 fL (80-94); Mean Platelet Volume 7.5 um3 (7.4-10.4); Nucleated Red Blood Cells % 0; Platelet Count 160 10^3/ul (150-450); Red Blood Count 3.51 10^6/ul (4.00-5.40); Red Cell Distribution Width 20 % (10.5-15); White Blood Count 10.1 10^3/ul (3.5-10.8)
[2017-08-04 15:38] LABS: EGFR Non-African American 25.8 (>60)
[2017-08-04 15:40] LABS: INR 1.08 (0.77-1.02)
[2017-08-04] MEDS ORDERED: levETIRAcetam 500 MG IVPREMIX* 500 MG/100 ML BAG IV ONE (16:00)
[2017-08-04] MEDS ORDERED: Propofol* 500 MG/50 ML BTL IV SCH (16:00)
[2017-08-04] MEDS ORDERED: fentaNYL* 50 MCG/ML 5 ML VIAL (250 MCG VIAL) ONE (16:25)
[2017-08-04] MEDS ORDERED: Atracurium* 10 MG/ML 10 ML VIAL ONE (16:25)
[2017-08-04] MEDS ORDERED: Midazolam* 1 MG/ML 10 ML VIAL (10 MG) ONE (16:25)
[2017-08-04] MEDS ORDERED: KETAMINE HCL* 50 MG/ML 10 ML VIAL ONE (16:25)
--- NOTE | 2017-08-04 16:43 | RAD ---
INDICATION: Trauma. COMPARISON: Comparison is made with a prior CT of the cervical spine from March 21, 2017. TECHNIQUE: Contiguous axial sections were obtained from the skull base through the T2 vertebra. Images were reconstructed in the sagittal and coronal planes. There is motion artifact throughout the study significantly limiting the exam. FINDINGS: There is straightening of the cervical spine and mild retrolisthesis of C4 relative to C5 of approximately 2 mm. There is motion artifact throughout this study limiting the exam although no gross fracture is seen. Images through the base of the brain demonstrate a subdural hematoma present on the left side previously described on the prior CT of the brain of the same date. At the C3-C4 level there is mild posterior uncinate process spurring and hypertrophic changes within the facet joints. No significant spinal canal narrowing is present. There is mild neural foraminal narrowing on the right side and moderate neural foraminal the left side. At the C4-C5 level there is no evidence for spinal canal or neural foraminal narrowing. At the C5-C6 level there is mild posterior uncinate process spurring. No significant spinal canal narrowing is present. There is moderate neural foraminal narrowing on the right side. At the C6-C7 level no significant spinal canal or neural foraminal narrowing is seen. There are nodules within the thyroid gland measuring up to 1.1 cm in size. These have previously previously evaluated on ultrasound from July 2016. IMPRESSION: 1. EXTREMELY LIMITED EXAM, NO GROSS EVIDENCE FOR FRACTURE. 2. MILD TO MODERATE CERVICAL SPONDYLOSIS. 3. LEFT-SIDED SUBDURAL HEMATOMA PREVIOUSLY DESCRIBED.
[2017-08-04] MEDS ORDERED: Dextrose 50% Syringe 50 ML* 25 GM/50 ML SYRINGE IV PUSH PRN (16:44)
[2017-08-04] MEDS ORDERED: Thrombin 5,000 UNITS* 1 APPLIC KIT - topical use - TOPICAL ONE ×2 (16:47→18:08)
[2017-08-04] MEDS ORDERED: Lidocaine 1% MPF wEPI 200,000* 30 ML SDV ONE (16:47)
[2017-08-04] MEDS ORDERED: Bacitracin IV* 50,000 UNITS INJ ONE (16:47)
[2017-08-04] MEDS ORDERED: ceFAZolin 2 GM PREMIX (*) 2 GM/50 ML BAG IVPB ONE (16:55)
[2017-08-04] MEDS ORDERED: Insulin REGULAR(*) 1 UNITS UNIT ONE (17:41)
[2017-08-04] MEDS ORDERED: Phenylephrine INJ* 10 MG/ML 1 ML VIAL (10 MG) ONE (19:25)
[2017-08-04] MEDS ORDERED: Lidocaine 2% PF * 5 ML VIAL ONE (19:25)
[2017-08-04] MEDS ORDERED: Propofol* 10 MG/ML 20 ML BTL IV PUSH ONE (19:26)
[2017-08-04] MEDS ORDERED: EPHEDrine (Pressors)* 50 MG/ML VIAL ONE (19:26)
[2017-08-04] MEDS: Propofol* 100 ML IV SCH (21:00)
[2017-08-04] MEDS ORDERED: levETIRAcetam 500 MG IVPREMIX* 500 MG/100 ML BAG IV SCH (21:00)
[2017-08-04] MEDS ORDERED: Propofol* 100 ML ONE (21:10)
[2017-08-04] MEDS ORDERED: Ondansetron INJ* 2 MG/ML VIAL IV PRN (21:17)
[2017-08-04] MEDS ORDERED: Morphine VIAL* 4 MG/ML VIAL (1 ml vial) IV PRN (21:17)
[2017-08-04] MEDS ORDERED: hydrALAZINE IV* 20 MG/ML VIAL IV SLOW PU PRN (21:19)
[2017-08-04] MEDS ORDERED: Albuterol/Ipratropium NEB.SOL* Albuterol 2.5 MG/Ipratropium 0.5 MG 3 ML INH PRN (21:22)
--- NOTE | 2017-08-04 21:33 | PN ---
Progress Note - Progress Note Date of Service: 08/04/17 Note: Patient arrived to the ICU s/p craniotomy secondary to a subdural hematoma. Discussed case with Dr. Saldaña. Patient arriving to [facility] for physical therapy after recent hip replacement. heard loud sound and saw he was on the ground on passenger side unresponsive. Pupils were fixed and dilated on arrival to the ER. Now pupils are equal and sluggish. On arrival to ICU patient clamped down on ETT tube. Propofol drip started. Keppra ordered BID, ativan for any break through seizures. Seizure precautions and neuro checks q1 hr, HOB 30 degrees. Goal BP SBP 140. PCO2 goal: 35, Goal HCT > 26. Sodium goal : 140-145. GI PPx ordered. Insulin drip started for glucose control. Platlets transfusing now. Morphine for break through pain. Updated Dr. Rincon, who also recommended starting hypertonic saline at 30 ml/hr. Labs, ABG and CXR all ordered, will F/U.
[2017-08-04] MEDS ORDERED: Sodium Chloride 3% HYPERTONIC* 500 ML IVPB ONE (21:41)
--- NOTE | 2017-08-04 21:50 | RAD ---
INDICATION: Hypoxia. COMPARISON: Comparison is made with a prior chest x-ray study from March 24, 2017. TECHNIQUE: A portable view of the chest was obtained. FINDINGS: The heart is within normal limits in size. The patient is status post sternotomy. There appears to be a prosthetic cardiac valve. There is an endotracheal tube which projects over the midline. The catheter tip is just below the level of the clavicular heads. There is elevation of the right hemidiaphragm and increased density at the right lung base which is unchanged from the prior exam. The lungs are underinflated. IMPRESSION: CHRONIC ELEVATION OF THE RIGHT HEMIDIAPHRAGM AND INCREASED DENSITY AT THE RIGHT LUNG BASE UNCHANGED.
[2017-08-04 21:57] LABS: Mean Platelet Volume 7.4 um3 (7.4-10.4); Platelet Count 136 10^3/ul (150-450)
--- NOTE | 2017-08-04 21:59 | HP ---
CC: Dr. Sanchez * [facility] MEDICINE HISTORY AND PHYSICAL: DATE OF ADMISSION: 08/04/17 PRIMARY CARE PHYSICIAN: Dr. Sanchez. ATTENDING PHYSICIAN: Dr. Cece Zamorano * (dictation provided by Elizabeth Malave NP ) CHIEF COMPLAINT: Fall with altered mental status. HISTORY OF PRESENT ILLNESS: Mr. Osorio is a 71-year-old male with a past medical history of severe pulmonary hypertension; severe aortic regurgitation, status post bioprosthetic aortic valve replacement; AFib; hypertension; coronary artery disease with stent versus a 1-vessel CABG as well as diabetes, who presents to the hospital today after a fall at home. Mr. Osorio is unconscious and unable to provide the information. At the time of my examination, no family were available in the room, as they were reviewing the case with the neurosurgeon, Dr. Saldaña. According to the report, Mr. Osorio has been in his normal state of health when he fell and hit his head on concrete today. Thereafter, he was disoriented and was brought in to the emergency room for evaluation. In the emergency room, Mr. Osorio had a brain CT, which showed "acute left frontoparietal subdural hematoma with 1 cm of subfalcine shift to the right and partial effacement of the basal cisterns. There is a small subarachnoid component along the insula and the left temporal lobe. There is a small right frontal and left falcine subdural hematoma." He also had a cervical spine CT, which was read as follows: "Extremely limited exam, no gross evidence for fracture, mild-to- moderate cervical spondylosis and left-sided subdural hematoma as previously described." His labs were unremarkable. Given his history, Dr. Saldaña from Neurosurgery was consulted and plans are made for immediate operative intervention. PAST MEDICAL HISTORY: 1. Severe pulmonary hypertension. 2. Mitral valve regurgitation, severe. 3. History of severe AR, status post bioprosthetic aortic valve replacement approximately in 2010. 4. AFib. 5. Hypertension. 6. Hyperlipidemia. 7. Coronary artery disease with question of stent versus 1-vessel CABG (family unclear). 8. Insulin-dependent diabetes. 9. Anemia. 10. History of carotid endarterectomy. 11. CKD, stage 3 to 4. 12. History of myelodysplastic syndrome. MEDICATIONS: I was unable to review the medications with the family, but per the emergency room staff, the patient's medications are as follows: 1. Tylenol 650 mg p.o. q.6 hours p.r.n. 2. Albuterol with ipratropium 1 puff inhaled four times a day. 3. Allopurinol 200 mg p.o. daily. 4. Amoxicillin as needed. 5. Ascorbic acid 500 mg p.o. q.a.m. 6. Aspirin 81 mg p.o. daily. 7. Atorvastatin 80 mg p.o. q.p.m. 8. Azelastine 0.1% both nares b.i.d. 9. Calcitriol 0.5 mcg p.o. daily. 10. Cholecalciferol 2000 units p.o. q.a.m. 11. Citalopram 20 mg p.o. q.p.m. 12. Docusate 100 mg p.o. b.i.d. p.r.n. 13. Ferrous sulfate 650 mg p.o. daily. 14. Fluticasone nasal spray 220 mcg 2 puffs inhaled b.i.d. 15. Folic acid 400 mcg p.o. q.a.m. 16. Glipizide 10 mg p.o. b.i.d. 17. Lantus 20 units subcutaneously at bedtime. 18. Ipratropium 2 sprays both nares daily. 19. Ketoconazole 2% topically b.i.d. p.r.n. 20. Metolazone 2.5 mg p.o. daily p.r.n. 21. Metoprolol tartrate 25 mg p.o. b.i.d. 22. Nasonex 1 spray both nares b.i.d. 23. Omeprazole 20 mg p.o. daily. 24. Senna 1 tab p.o. b.i.d. 25. Spironolactone 25 mg p.o. daily. 26. Thiamine 100 mg p.o. daily. 27. Torsemide 20 mg p.o. b.i.d. 28. Xylitol 1 lozenge p.o. four times a day p.r.n. ALLERGIES: To CLARITHROMYCIN. FAMILY HISTORY: The patient's father had stroke and cancer. Mother and she had hypertension. SOCIAL HISTORY: The patient is a former smoker, quit 30 years ago. Apparently, he drinks one gin and tonic per night. There is no report of drug use. He lives with his , his healthcare proxy. REVIEW OF SYSTEMS: A 14-point review of systems was not able to be completed as the patient was unresponsive. PHYSICAL EXAMINATION GENERAL: Mr. Osorio is lying in the bed. He is unresponsive. VITAL SIGNS: Temperature 97.1, pulse rate 62, respiratory rate 21, O2 saturation 94% on 10 L nasal cannula, blood pressure 164/65. LUNGS: Coarse crackles in right base, seemed to be clear in the left base. There is good aeration otherwise. HEART: S1, S2. No murmur, rub, or gallop is appreciated. ABDOMEN: Soft. Bowel sounds are positive. EXTREMITIES: No cyanosis. No edema. NEURO: His pupils are 4 mm on the left and about 2 mm on the right, neither are responsive to light. He is unresponsive to stimulation, either verbal or noxious stimulation. No spontaneous movement was noted. SKIN: Intact other than some bleeding noted from the left side of his head. DIAGNOSTIC STUDIES/LAB DATA: Sodium 137, potassium 4.2, chloride 97, serum bicarbonate 30, BUN 99, creatinine 2.48, glucose 180. WBC 10.1, hemoglobin 10.1 , hematocrit 31, platelet count 160. Serum alcohol level is less than 10. CT brain is as read as above as is the cervical spine CT. ASSESSMENT AND PLAN: Mr. Osorio is a 71-year-old male with a past medical history of severe pulmonary hypertension, coronary artery disease, hypertension , diabetes, atrial fibrillation, who presents today to hospital after falling and sustaining an injury to the left side of his head, now found to have a large subdural hematoma with midline shift. He is unresponsive in the emergency room and is requiring immediate operative intervention. Our recommendations are as follows: 1. Subdural hematoma: I appreciate the consultation from Dr. Saldaña from Neurosurgery who is planning for emergent operative intervention. The patient will be monitored thereafter in the intensive care unit with further recommendations as per clinical course and recommendations from Dr. Saldaña. The patient is clearly a very high risk for the surgery given his history of severe pulmonary hypertension. I do note that he had hip fracture back in February 2017 that he tolerated well. No further cardiac testing is indicated for this emergency surgery. 2. Atrial fibrillation. The patient was not anticoagulated other than being on aspirin, which we plan to hold. He will have metoprolol available, IV, low dose. His heart rates have been running around 60. 3. Type 2 diabetes. Plan to hold on home medications and he will have blood glucoses q.a.c. with lispro sliding scale. 4. History of congestive heart failure. The patient has diastolic CHF and known pulmonary hypertension. He takes torsemide, spironolactone, metolazone at home. We will be holding those medications as he will not likely be able to take oral medications for some time. We will monitor his fluid status closely and provide intravenous Lasix or other agents as needed. 5. Hypoxia. The patient normally is on, I believe, 2 L of oxygen and is requiring 10 L of oxygen to maintain an O2 saturation greater than 90% in the emergency room. I think this is secondary to his deteriorating neurological status. Once he is out of the OR and can tolerate chest x-ray, we will follow up on that. 6. DVT prophylaxis. With SCDs only. 7. Code status. He is currently full code. The patient's is not available to discuss the case in the emergency room, as she was speaking with Dr. Saldaña from Neurosurgery and going over the consent process. Per the nursing staff, the is very anxious and in shock, but we will be reviewing the goals of care as the case unfolds and I have an opportunity to speak with the her. TIME SPENT: Approximately 60 minutes was spent on the admission of this patient , more than half of the time was spent with the patient at the bedside reviewing the events leading up to this hospitalization, performing the physical examination, and reviewing the plan of care. ELIZABETH MALAVE, BETTYE [id number]/[facility] #: [id number] ABHINAV
[2017-08-04] MEDS ORDERED: Famotidine IV* 10 MG/ML 2 ML (20 mg) IV SCH (22:00)
[2017-08-04] MEDS ORDERED: Insulin IVPB 100 units/100 ml 100 UNITS/100 ML UNIT IVPB SCH ×2 (22:00→22:30)
[2017-08-04] MEDS ORDERED: Famotidine IV * 20 MG in NS 0.9% 100 ML* 100 ML IVPB SCH (22:00)
[2017-08-04] MEDS: Metoprolol Tartrate IV* 1 MG/ML 5 ML VIAL IV SCH (22:04)
[2017-08-04 22:36] LABS: EGFR Non-African American 25.8 (>60)
[2017-08-04 22:40] LABS: ABS Basophils 0 10^3/ul (0-0.2); ABS Eosinophils 0 10^3/ul (0-0.6); ABS Lymphocytes 0.4 10^3/ul (1.0-4.8); ABS Monocytes 0.5 10^3/ul (0-0.8); ABS Neutrophils 7.3 10^3/ul (1.5-7.7); ABS Nucleated RBC 0 10^3/ul; Eosinophil % 0.1 % (0-6); Hematocrit 24 % (42-52); Hemoglobin 7.5 g/dl (14.0-18.0); Lymphocyte % 4.3 % (25-47); Mean Corpuscular HGB Conc 32 g/dl (31-36); Mean Corpuscular Hemoglobin 29 pg (27-31); Mean Corpuscular Volume 92 fL (80-94); Nucleated Red Blood Cells % 0; Red Blood Count 2.55 10^6/ul (4.00-5.40); Red Cell Distribution Width 20 % (10.5-15); White Blood Count 8.2 10^3/ul (3.5-10.8)
[2017-08-04 22:55] LABS: INR 1.17 (0.77-1.02)
--- NOTE | 2017-08-04 23:56 | CONS ---
CONSULTATION NOTE: DATE OF CONSULT: 08/04/17 HISTORY OF PRESENT ILLNESS: The patient is very pleasant 71-year-old gentleman with multiple comorbidities including diabetes, hypertension, coronary artery disease, atrial fibrillation, stage 4 kidney disease, pulmonary hypertension who recently had sustained a fall. He has had surgery in February 2017, for hip fracture and has been on physical therapy. The patient was brought to the emergency room this afternoon because while he was on his way to physical therapy and in the parking lot, he had a fall while he was getting out of the car. It was not clear if the patient had a syncopal episode. The patient was brought to the emergency room and he was found to have altered mental status with declining level of consciousness. The patient had CT scan finding consistent with a large left acute subdural hematoma and for this reason, I was requested to see the patient by Dr. Perez in the emergency room. The patient was on baby aspirin. The patient is lethargic; history was obtained from Dr. Perez, the patient's family as well as his medical records. No reported seizure. No reported bladder or bowel incontinence. The patient is . He lives with his who accompanies him with his visit. Of note, the patient 's father was admitted to the ICU earlier this morning for blood pressure issues. PAST MEDICAL HISTORY: The patient has history of pulmonary hypertension, diabetes, hypertension, coronary artery disease, atrial fibrillation, stage 4 kidney disease, anemia, congestive heart failure, coronary artery disease, hyper -cholesterolemia. The patient has history of sleep apnea, GERD, arthritis, gout , cataracts, decreased hearing, GI AVMs. PAST SURGICAL HISTORY: The patient has a history of hip surgery, CABG, AVR, heart catheterization, left toe amputation by Dr. Jett, carotid endarterectomy. FAMILY HISTORY: Cardiac disease, diabetes, stroke, ovarian cancer. SOCIAL HISTORY: Tobacco negative. He is a former smoker. Alcohol, 2 drinks per night. Recreational use negative. PHYSICAL EXAM: The patient was seen in the emergency room once he returned from CT scan of the cervical spine. The patient does not open his eyes to pain. He has non verbal response. Motor: He is not responsive to pain other than minimal withdrawing his lower extremities to pain, left more than right. His pupils are: 3 mm and reactive on the right, 6 mm and nonreactive on the left. Deep tendon reflexes +2 bilaterally. Babinski positive bilaterally. Clonus negative. The patient has no step-off on the palpation of cervical, thoracic and lumbar spine. DIAGNOSTIC STUDIES/LAB DATA: The patient had a CT scan of the brain that revealed a large left acute and hyperacute subdural hematoma with 1 cm midline shift with compression of the left ventricular system. There is also evidence of subarachnoid hemorrhage on the left with left tentorial subdural hematoma, right frontal subdural hematoma and bifrontal and multiple left side contusions. The patient also had a CT scan of the cervical spine that was of limited quality because of motion artifact, but no obvious fractures were identified. ASSESSMENT: The patient is a pleasant 71-year-old right-handed gentleman with multiple comorbidities who was on baby aspirin and was reported to have sustained a fall prior to his admission with CT scan findings consistent with a large left- sided acute subdural hematoma. PLAN: The patient at this point has signs of increased intracranial pressure with possible herniation. Discussed in details with the patient's family regarding the patient's condition. Given the acuity of his symptoms, the patient was offered the option of surgical intervention in the forms of left craniotomy for subdural hematoma evacuation. After discussing risks and benefits, expectations, limitations and possible complications of the procedure , with complications include, but not limited to bleeding, infection, risk of injury to adjacent structures, coma, paralysis, , need for additional procedures, anesthesia risk, inability to improve, prolonged ICU stay, need for tracheostomy or gastrostomy, the patient's and family including his son and his [id number] were agreeable to proceed with surgery and informed consent was obtained. They understood that his condition may not improve and in fact may get worse after the surgery and that he may need to have additional procedures in the future and also that operative plan may be modified according to intraoperative findings and conditions. They understood that this may be a terminal event and his prognosis is extremely poor with or without surgery. The patient was taken to the OR from the emergency room immediately after family 's consent. Carine Saldaña MD [id number]/[facility] #: [id number] ABHINAV
[2017-08-05] MEDS: Metoprolol Tartrate IV* 1 MG/ML 5 ML VIAL IV SCH ×5 (00:15→23:11)
[2017-08-05] MEDS: Propofol* 100 ML IV SCH ×4 (00:36→20:19)
[2017-08-05] MEDS: Chlorhexidine MOUTHWASH 0.12%* 15 ML UDC TOPICAL SCH ×6 (02:32→20:13)
[2017-08-05 06:30] LABS: ABS Basophils 0 10^3/ul (0-0.2); ABS Eosinophils 0 10^3/ul (0-0.6); ABS Lymphocytes 0.3 10^3/ul (1.0-4.8); ABS Monocytes 0.6 10^3/ul (0-0.8); ABS Neutrophils 7.4 10^3/ul (1.5-7.7); ABS Nucleated RBC 0 10^3/ul; Eosinophil % 0 % (0-6); Hematocrit 25 % (42-52); Hemoglobin 8.3 g/dl (14.0-18.0); Lymphocyte % 3.7 % (25-47); Mean Corpuscular HGB Conc 33 g/dl (31-36); Mean Corpuscular Hemoglobin 29 pg (27-31); Mean Corpuscular Volume 88 fL (80-94); Mean Platelet Volume 7.3 um3 (7.4-10.4); Nucleated Red Blood Cells % 0; Platelet Count 128 10^3/ul (150-450); Red Blood Count 2.84 10^6/ul (4.00-5.40); Red Cell Distribution Width 19 % (10.5-15); White Blood Count 8.3 10^3/ul (3.5-10.8)
[2017-08-05 06:52] LABS: EGFR Non-African American 29.7 (>60)
[2017-08-05] MEDS ORDERED: Insulin LISPRO* 1 UNITS UNIT SUBCUT SCH (07:30)
[2017-08-05] MEDS ORDERED: Acetaminophen ADULT LIQ* 650 MG/20.3 ML UDC G TUBE PRN (07:30)
[2017-08-05] MEDS ORDERED: Acetaminophen SUPP* 650 MG SUPP PR ONE (07:33)
--- NOTE | 2017-08-05 07:56 | RAD ---
INDICATION: Endotracheal tube adjustment COMPARISON: Most recent comparison chest x-rays dated August 04, 2017 TECHNIQUE: Single AP portable view of the chest was obtained. FINDINGS: Image quality is compromised due to the relative inferiority of a portable chest x-ray and the patient's large body habitus. The endotracheal tube terminates at the level of the lower margin of the clavicular head. The gastric tube is seen overlying the midline mediastinum but the tip is not discretely visualized and is not definitely seen overlying the gastric air. There is moderate cardiomegaly. There is density of securing the left hemidiaphragm. There is patchy density overlying the remaining aerated lungs. IMPRESSION: 1. The endotracheal tube appears to be in appropriate position. 2. The tip of the gastric tube is not visualized but is not seen overlying the gastric lumen. Please correlate to physical exam and/or production of gastric secretions in the gastric tube. 3. Cardiomegaly with signs of pulmonary edema and pleural effusion and/or consolidation obscuring the left lung base.
[2017-08-05] MEDS ORDERED: Magnesium Sulf 4 GM/100 ML IV* 4,000 MG/100 ML BAG IVPB ONE (08:00)
--- NOTE | 2017-08-05 08:04 | RAD ---
HISTORY: post op SDH evacuation COMPARISONS: August 04, 2017 TECHNIQUE: Multiple contiguous axial CT scans were obtained of the head without intravenous contrast. FINDINGS: HEMORRHAGE/INFARCT: There has been interval development of multiple intraparenchymal hematomas along the inferior frontal lobes bilaterally, the left temporal lobe, left parietal lobe, and left occipital lobe. Again noted is left frontoparietal subdural hematoma. A surgical drain is noted in the hematoma. There is a small right frontal subdural hematoma. MASSES/SHIFT: There is subfalcine shift to the left of approximately 1.4 cm, somewhat increased from the previous examination. There is effacement of the basal cisterns. The foramen magnum is preserved. EXTRA-AXIAL SPACES: As noted above, there is left frontoparietal subdural hematoma with a small right frontal subdural hematoma. There is subarachnoid hemorrhage along the left cerebral hemisphere. SULCI AND VENTRICLES: There is intraventricular hemorrhage within the right lateral ventricle. CEREBRUM: As noted above, there has been interval development of multiple, extensive, intraparenchymal hematomas along the inferior frontal lobes bilaterally, left temporal, parietal, and occipital lobes. There is associated vasogenic edema and subfalcine shift to the right. BRAINSTEM: There are no focal parenchymal abnormalities. CEREBELLUM: There are no focal parenchymal abnormalities. VESSELS: The vessels are grossly normal. PARANASAL SINUSES: The paranasal sinuses are clear. ORBITS: The orbits are unremarkable. BONES AND SOFT TISSUE: There is postsurgical change to the skull. OTHER: None IMPRESSION: 1. THERE HAS BEEN INTERVAL DEVELOPMENT OF MULTIPLE, EXTENSIVE, INTRAPARENCHYMAL HEMATOMAS ALONG THE INFERIOR FRONTAL LOBES BILATERALLY, LEFT TEMPORAL, PARIETAL, AND OCCIPITAL LOBES. THERE IS ASSOCIATED VASOGENIC EDEMA WITH SUBFALCINE SHIFT TO THE RIGHT AND EFFACEMENT OF THE BASAL CISTERNS. 2. AGAIN NOTED IS LEFT FRONTOPARIETAL SUBDURAL HEMATOMA WITH SURGICAL DRAIN. THERE IS A SMALL RIGHT FRONTAL SUBDURAL HEMATOMA. THERE IS SUBARACHNOID HEMORRHAGE. THERE IS INTRAVENTRICULAR HEMORRHAGE. FINDINGS WERE DISCUSSED WITH DR. VINCENT BY DR. JOHNSON AT APPROXIMATELY 5:33 AM ON AUGUST 06, 2015
[2017-08-05] MEDS: NS 0.9% 1000 ML* 1,000 ML IV SCH ×2 (08:49→21:29)
--- NOTE | 2017-08-05 11:37 | RAD ---
HISTORY: PICC placement COMPARISONS: None VIEWS: 1: frontal portable view of the chest at 11:20 AM FINDINGS: LINES AND TUBES: An endotracheal tube is noted with the tip overlying the trachea between the clavicles and the hoang. A gastric tube is noted, with the tip in the left upper quadrant in a prepyloric position.. A right-sided PICC line is noted with the tip overlying the cavoatrial junction. CARDIOMEDIASTINAL SILHOUETTE: A prosthetic heart valve is noted. PLEURA: The costophrenic angles are sharp. No pleural abnormalities are noted. LUNG PARENCHYMA: The lungs are clear. ABDOMEN: The upper abdomen is clear. There is no subphrenic gas. BONES AND SOFT TISSUES: The patient is status post median sternotomy. IMPRESSION: LINES AND TUBES ABOVE. NO ACTIVE CARDIOPULMONARY DISEASE.
[2017-08-05] MEDS ORDERED: Sodium Chloride 3% HYPERTONIC* 500 ML IVPB ONE ×2 (12:00→21:51)
--- NOTE | 2017-08-05 12:14 | OP ---
OPERATIVE REPORT: DATE OF OPERATION: 08/04/17 DATE OF : 45 SURGEON: Sravanthi Saldaña MD. PIPEFITTER HELPER: NBA Rodriguez. Case was done with the assistance of a surgical PA because of the complexity of the case. ANESTHESIA: General. PRE-OP DIAGNOSIS: Left acute subdural hematoma. POST-OP DIAGNOSIS: Left acute subdural hematoma. PROCEDURE PERFORMED: The patient underwent a left frontotemporoparietal craniotomy for evacuation of acute subdural hematoma. ESTIMATED BLOOD LOSS: 150 cc. COMPLICATIONS: None. SUMMARY: The patient is a very pleasant 71-year-old gentleman with multiple comorbidities including history of coronary artery disease, congestive heart failure, atrial fibrillation, aortic valve replacement, CABG, hypertension, pulmonary hypertension, diabetes, anemia, renal failure, on 81 mg per day aspirin, who had recently sustained a fall and had been diagnosed with hip fracture and had surgery in February 2017. The patient was on his way to physical therapy and had a fall earlier today. He was diagnosed with CT scan findings consistent with left acute subdural hematoma with midline shift. The patient had signs of increased midline shift and was offered the option of surgical intervention in the form of a left frontotemporoparietal craniotomy for acute subdural hematoma evacuation. After discussing with the patient's family, including his , expectations, limitations, and possible complications of the procedure with complications including, but not limited to bleeding, infection, risk of injury to adjacent structures, coma, paralysis, , need for additional procedures, anesthesia risk, stroke, blindness, need for tracheostomy or gastrostomy, prolonged ICU stay, need for further surgical interventions, the patient's and children were agreeable to proceed with surgery. Informed consent was obtained from the patient's and family. The family understood that his condition may not improve and in fact may get worse after the surgery and he may need to have additional procedures in the future. They understand that this may be a terminal event and his prognosis is poor with and without surgery and that operative plan may be modified according to intraoperative findings and conditions. DESCRIPTION OF PROCEDURE: The patient was brought to the operating room and was placed under general anesthesia by the anesthesia team. He was carefully positioned supine with a shoulder roll under the left shoulder. His head was rested on a donut headrest and hair was removed with surgical clippers. The skin was prepped and draped in the standard fashion and after appropriate surgical pause and patient identification, a reverse question mis incision was performed with a #10 surgical blade after infiltrating the skin with local anesthetic. Hemalatha clips were used to confirm hemostasis and the incision was carried deeper in the periosteum and through the temporalis muscle and fascia with the use of Bovie cautery. The skin flap was elevated with the use of periosteal elevators and Bovie cautery and gently retracted anteriorly over a folded gauze. Several khanh holes were performed with a high speed drill while the craniotome was used to connect the khanh holes and fashion a left frontotemporoparietal craniotomy. After performing small holes on the periphery of the craniotomy for placement of the 4.0 Nurolon sutures, tenting of the dura was completed. The dura was incised with the use of a 15 surgical blade and Metzenbaum scissors. A significant amount of acute and hyperacute subdural hematoma was encountered and this was gently removed with irrigation and suction. There was evidence of pseudomembranes in the area of subdural hematoma. A small amount of the hematoma was sent for pathology as a permanent specimen. Of note, the family reported that the patient had several episodes of falls with head injury in the past. The hematoma was gently evacuated and the pseudomembranes were also gently coagulated, and after copious irrigation, and confirmation for meticulous hemostasis, the brain was found to be pulsating nicely and without significant edema. It was elected to perform a craniotomy and after Aldo drain was placed in the subdural space, the dura was approximated with 4-0 Nurolon sutures and the dural gaps were covered with DuraGen. The bone flap was repositioned and secured in place with several titanium khanh hole covers and plates, while the subdural drain was tunnelled through a separate stab wound incision. A second Aldo drain was then placed in the subgaleal space and was tunnelled through a separate stab wound incision. After copious irrigation, meticulous hemostasis, and meticulous inspection of the wound, the skin flap was closed by layers with 2-0 interrupted Vicryl suture used to reapproximate the temporalis fascia and muscle. 2-0 undyed Vicryl sutures were used to approximate with subcutaneous suture and the galea and sita to approximate skin. At the end of the procedure, all counts were reported to be correct. The patient's skin was covered with sterile dressings. The patient remained hemodynamically stable throughout the case. He was then turned supine and was transferred to ICU in excellent condition. The case was done with assistant professor sculpture of surgical PA because of the complexity of the case. Carine Saldaña MD [id number]/[facility] #: [id number] ABHINAV
[2017-08-05] MEDS: levETIRAcetam 500 MG IVPREMIX* 500 MG/100 ML BAG IV SCH (14:08)
--- NOTE | 2017-08-05 14:25 | PN ---
Progress Note - Progress Note Date of Service: 08/05/17 Note: CRITICAL CARE MEDICINE Date: 08/05/17 Time: 1230 SUBJECTIVE: Patient seen and examined. d/w family PHYSICAL EXAM: Vital Signs: Reviewed. Neurologic: coma. roving conjugate eye movements to left, that do not cross midline; +corneal. sluggish to non-reactive pupils. +gag HEENT: Sclera anicteric. Trachea midline. ett. c-collar Cardiovascular: distant S1 S2 Respiratory: coarse bl Abdomen: Soft, nt. dec bs. No r/g/r. Extremities: Warm. +bl iveth Access: picc LABS: Reviewed. IMAGING: Reviewed. MEDICATIONS: Reviewed. ASSESSMENT: 71 M Catastrophic left SDH (acute perhaps on subacute) with trauma and now post crani , with more evident intraparychemal contusions and cerebral edema and subfalcine herniation. Coma on admission Acute resp failure sec to above Multiple co-morbidites PLAN: as d/w hospitalist from overnight. 3% saline use early on. Na is coming up. on seizure proph. BP has held around 140. Insulin gtt can be off. Gluc better. No feeds yet. Unfortunately there will not be a favorable outcome with his degree of burden, especially with his co-morbdities. Discussed with pts and daughter. They expressed understanding. DNR. Likely lean towards withdrawal but support as is for now without much escalation and certainly no further surgical benefits. Re-assured them that attempts to save him last night were prudent then but unfortunately it was un-rescuable and we will start focusing on comfort. They need some time. DNR. Care as is for now. Disposition: ICU Code Status: DNR Critical Care Time: 45min Brittni Rincon DO
[2017-08-05] MEDS ORDERED: Insulin GLARGINE(*) 1 UNITS UNIT SUBCUT ONE (14:39)
[2017-08-05] MEDS: Metoprolol Tartrate TAB* 25 MG G TUBE SCH ×2 (15:11→20:13)
[2017-08-05] MEDS: Insulin REGULAR(*) 1 UNITS UNIT SUBCUT SCH ×2 (18:48→23:32)
--- NOTE | 2017-08-05 20:03 | PN ---
Progress Note - Progress Note Date of Service: 08/05/17 SOAP: Subjective: []Patient was seen earlier today. No events ON. On Propofol, On vent. MJ collar. Objective: []VSS, Afebrile Wound soft,clean,dry. Subdural and subgaleal drain functioning. Drainage noted. Does not open eyes to pain, MIMI, corneal, gag and cough reflexes present, Intubated, Minimal flexes LUE to pain. Withdraws LEs to pain. Assessment: []71 yom POD#1 Left SDH evacuation Plan: []MOnitor VS, Neurochecks On Keppra, 3% CT revealed satisfactory evacuation of SDH with evolution of Left temporal, bifrontal contusions. Discussed in extend with patient's regarding patient's condition. She understands the critical of the condition and possible grave prognosis. Patient is DNR since this am. and children have agreed against further interventions and plan for withdrawing support in am. Appreciate ICU/IM care. Carine Saldaña MD
[2017-08-05] MEDS: Famotidine SUSP* 40 MG/5 ML ORAL.SYRIN G TUBE SCH (20:08)
[2017-08-06] MEDS: Chlorhexidine MOUTHWASH 0.12%* 15 ML UDC TOPICAL SCH ×4 (01:31→14:27)
[2017-08-06] MEDS: levETIRAcetam 500 MG IVPREMIX* 500 MG/100 ML BAG IV SCH ×2 (01:31→14:26)
[2017-08-06] MEDS: Metoprolol Tartrate IV* 1 MG/ML 5 ML VIAL IV SCH ×2 (05:33→10:43)
[2017-08-06 05:35] LABS: Hematocrit 23 % (42-52); Hemoglobin 7.4 g/dl (14.0-18.0); Mean Corpuscular HGB Conc 32 g/dl (31-36); Mean Corpuscular Hemoglobin 29 pg (27-31); Mean Corpuscular Volume 91 fL (80-94); Mean Platelet Volume 7.6 um3 (7.4-10.4); Platelet Count 116 10^3/ul (150-450); Red Blood Count 2.55 10^6/ul (4.00-5.40); Red Cell Distribution Width 19 % (10.5-15); White Blood Count 9.3 10^3/ul (3.5-10.8)
[2017-08-06] MEDS: Propofol* 100 ML IV SCH (05:42)
[2017-08-06 05:52] LABS: EGFR Non-African American 33.9 (>60)
[2017-08-06] MEDS: Insulin REGULAR(*) 1 UNITS UNIT SUBCUT SCH ×2 (06:06→14:17)
[2017-08-06] MEDS: Famotidine SUSP* 40 MG/5 ML ORAL.SYRIN G TUBE SCH (09:20)
[2017-08-06] MEDS: Metoprolol Tartrate TAB* 25 MG G TUBE SCH (09:20)
[2017-08-06] MEDS: NS 0.9% 1000 ML* 1,000 ML IV SCH (10:40)
--- NOTE | 2017-08-06 11:24 | PN ---
Progress Note - Progress Note Date of Service: 08/06/17 Note: CRITICAL CARE MEDICINE Date: 08/06/17 Time: 925 SUBJECTIVE: Patient seen and examined. PHYSICAL EXAM: Vital Signs: Reviewed. Neurologic: coma. roving conjugate eye movements to left remains; that do not cross midline. no tracking. no pupils for me. +corneals more brisk. +corneal. + gag. Decererbrate on right and maybe a hair on left. +babinski bl HEENT: Sclera anicteric. Trachea midline. ett. Cardiovascular: distant S1 S2 Respiratory: coarse bl; overbreathing with painful stimuli Abdomen: Soft, nt. Extremities: Warm; ecchymosis. Access: picc LABS: Reviewed. IMAGING: Reviewed. MEDICATIONS: Reviewed. ASSESSMENT: 71 M Catastrophic left SDH and intraparychemal contusions and cerebral edema and subfalcine herniation. Coma on admission Acute resp failure sec to above Multiple co-morbidites PLAN: No meaningful recovery, and unlikely to progress to brain anytime soon. Will gather with family today and will discuss comfort measures Disposition: ICU Code Status: DNR Critical Care Time: 35min Brittni Rincon DO
[2017-08-06] MEDS ORDERED: Morphine PCA ADULT* 5 MG/ML 30 ML ONE (12:55)
[2017-08-06] MEDS ORDERED: Morphine PCA ADULT* 5 MG/ML 30 ML PCA SCH ×3 (13:00→14:21)
[2017-08-06] MEDS ORDERED: Morphine INJ* 10 MG/ML 1 ML CARPUJECT IV ONE ×2 (13:25→13:36)
--- NOTE | 2017-08-06 14:08 | PN ---
Progress Note - Progress Note Date of Service: 08/06/17 Note: CRITICAL CARE MEDICINE Date: 08/06/17 Time: 1225 d/w family. all in agreement with comfort care and terminal extubation. start morphine and liberate. Disposition: ICU Code Status: comfort Critical Care Time: 5min FTita Rincon DO
[2017-08-06 14:20] VITALS: BP 128/71
--- NOTE | 2017-08-06 14:21 | DS ---
CRITICAL CARE MEDICINE DISCHARGE SUMMARY ADMISSION DATE: 08/04/2017 ICU ADMISSION DATE: 08/04/2017 ICU DISCHARGE DATE: 08/06/2017 PRIMARY CARE PROVIDER: Laura. REFERRING PHYSICIAN: Chris. DIAGNOSIS: 1. Large left subdural hematoma. 2. Small subarchnoid hemorrhage. 3. Cerebral contusions and hemorrhage post emergent craniotomy. 4. Coma on admission. 5. Acute respiratory failure with hypoxia. 6. Severe pulmonary hypertension. 7. Valvular heart disease. 8. Atrial fibrillation. 9. Acute on chronic renal failure. 10. Uncontrolled diabetes. MEDICATIONS AT DISCHARGE: None. ALLERGIES: Clarithromycin. HOSPITAL COURSE: 71 year old male admitted with severe encephalopathy post fall with acute vs acute on subacute subdural hematoma with midline shift and subfalcine herniation, with multiple co-morbidities, taken to the operation room emergently with heroic attempt to save his life with left craniotomy and hematoma evaculation. Remained comatose. Unfortunately ct much worse following am with re-expansion complications and post trauma. Family expressed understanding and he was supported for a day with no escalation and as DNR and then full comfort measures instilled with terminal extubation. FLDRS aware and declined. Family present. DISPOSITION: Comfort. Brittni Rincon DO
--- NOTE | 2017-08-07 10:43 | ED ---
John eCvallos Angela, scribed for Alex Perez MD on 08/04/17 at 1501 . Head Injury - HPI Summary HPI Summary: This pt is 71 y/o male presenting to [facility] for head injury s/p mechanical fall today. reports the pt was on his way to physical therapy today when he got out of the car and as the was getting his oxygen on his walker, the pt fell. notes the pt had a positive head strike, hitting the left side of his head against the side walk. denies pt had LOC as pt was alert. Pt currently c/o headache, dizziness, nausea. Denies neck pain. Pt had surgery in February 2017 for a broken hip and since then he has been on physical therapy. He is currently on baby aspirin. denies any other anticoagulants. Pt's last tetanus shot is unknown. PMHx includes diabetes, HTN, CAD, afib, stage 4 kidney disease. - History Of Current Complaint Chief Complaint: EDHeadInjury Stated Complaint: FALL Time Seen by Provider: 08/04/17 14:35 Hx Obtained From: Patient, Family/Backend Python Developer - Mechanism Of Injury: Blunt Trauma Onset/Duration: Started Minutes Ago, Traumatic, Still Present Severity Initially: Moderate Pain Intensity: 5 Pain Scale Used: 0-10 Numeric Location of Head Injury: Temporal - left Aggravating Factor(s): Other: - nothing Alleviating Factor(s): Other: - nothing Associated Signs And Symptoms: Nausea, Headache, Other: - POS: dizziness. NEG: neck pain - Allergies/Home Medications Allergies/Adverse Reactions: Allergies Allergy/AdvReac Type Severity Reaction Status Date / Time clarithromycin Allergy Intermediate GI Upset Verified 08/04/17 14:50 Home Medications: Home Medications Acetaminophen TAB* [Tylenol TAB*] 650 mg PO Q6H PRN 08/04/17 [History Confirmed 08/04/17] Albuterol/Ipratropium RESP(NF) [Combivent Respimat(NF)] 1 puff INH QID 08/04/17 [History Confirmed 08/04/17] Amoxicillin PO (*) [Amoxicillin 500 MG CAP*] 500 mg PO ONCE PRN 08/04/17 [ History Confirmed 08/04/17] Aspirin EC TAB* [Ecotrin EC Low Dose 81 MG*] 81 mg PO DAILY 08/04/17 [History Confirmed 08/04/17] Azelastine HCl [Azelastine Hydrochloride] 0.1 % BOTH NARES BID 08/04/17 [ History Confirmed 08/04/17] Calcitriol CAP* [Rocaltrol CAP*] 0.5 mcg PO DAILY 08/04/17 [History Confirmed 08/04/17] Ferrous Sulfate TAB* 650 mg PO DAILY 08/04/17 [History Confirmed 08/04/17] Folic Acid 400 mcg PO QAM 08/04/17 [History Confirmed 08/04/17] Insulin Glargine,Hum.rec.anlog [Lantus Solostar 5x3 ML PENS] 20 units SUBCUT BEDTIME 08/04/17 [History Confirmed 08/04/17] Ipratropium [place] [Ipratropium [place]] 2 spray BOTH NARES BID 08/04/17 [ History Confirmed 08/04/17] Ketoconazole [Ketoconazole] 2 % TOPICAL BID PRN 08/04/17 [History Confirmed 02/09] Metolazone TAB* [Zaroxolyn TAB*] 2.5 mg PO DAILY PRN 08/04/17 [History Confirmed 08/04/17] Metoprolol Tartrate TAB* [Lopressor TAB*] 25 mg PO BID 08/04/17 [History Confirmed 08/04/17] Mometasone NASAL (NF) [Nasonex (NF)] 1 spray BOTH NARES BID 08/04/17 [History Confirmed 08/04/17] Omeprazole CAP* [Prilosec CAP* 20 MG] 20 mg PO DAILY 08/04/17 [History Confirmed 08/04/17] Senna TAB* [Senokot TAB*] 1 tab PO BID 08/04/17 [History Confirmed 08/04/17] Spironolactone TAB* [Aldactone TAB*] 25 mg PO DAILY 08/04/17 [History Confirmed 08/04/17] Thiamine TAB* [Vitamin B-1 TAB*] 100 mg PO DAILY 08/04/17 [History Confirmed 02/09] Torsemide TAB* [Demadex*] 20 mg PO BID 08/04/17 [History Confirmed 08/04/17] Xylitol 1 lozenge PO QID PRN 08/04/17 [History Confirmed 08/04/17] PMH/Surg Hx/FS Hx/Imm Hx Endocrine/Hematology History: Reports: Hx Diabetes, Hx Anemia Denies: Hx Thyroid Disease - BEING MONITORED BY DR. OCONNOR- GREGORY Cardiovascular History: Reports: Hx Congestive Heart Failure, Hx Coronary Artery Disease - PCI and likely CABG, Hx Hypercholesterolemia, Hx Hypertension, Hx Valvular Heart Disease - aortic valve replacement 12/2009, Other Cardiovascular Problems/Disorders - Afib, carotid endarterectomy, AV replacement Denies: Hx Pacemaker/ICD Respiratory History: Reports: Hx Chronic Obstructive Pulmonary Disease (COPD), Hx Pneumonia, Hx Pulmonary Edema - HX OF, Hx Sleep Apnea, Other Respiratory Problems/Disorders - Restrictive lung disease, pulmonary hypertension, COPD GI History: Reports: Hx Gastroesophageal Reflux Disease, Other GI Disorders - AVM Denies: Hx Jaundice History: Reports: Hx Chronic Renal Failure Musculoskeletal History: Reports: Hx Arthritis, Hx Back Problems, Hx Gout, Hx Orthopedic Injury - L hip fracture Sensory History: Reports: Hx Cataracts - BILATERAL, Hx Deafness, Hx Hearing Aid , Hx Hearing Problem Denies: Hx Contacts or Glasses Opthamlomology History: Reports: Hx Cataracts - BILATERAL Denies: Hx Contacts or Glasses Psychiatric History: Reports: Hx Depression Denies: Hx Panic Disorder - Surgical History Surgery Procedure, Year, and Place: bioprosthetic AVR with probable CABG x1, 2011 heart catherization, 2016 L third toe amputation with Dr. Johnie Zavala Anesthesia Reactions: No Infectious Disease History: No Infectious Disease History: Denies: Traveled Outside the [place] in Last 30 Days - Family History Known Family History: Positive: Cardiac Disease - father, Diabetes - father Family History: father: stroke. Mother: ovarian CA. Father: penile CA - Social History Alcohol Use: None Alcohol Amount: 2 drinks per night vodka liquor Substance Use Type: Reports: None Smoking Status (MU): Former Smoker Type: Cigarettes Amount Used/How Often: 2-3 PPD Length of Time of Smoking/Using Tobacco: 12 YEARS Have You Smoked in the Last Year: No Review of Systems Negative: Fever, Chills Eyes: Negative ENT: Negative Positive: Nausea Negative: Other - neck pain Neurological: Other - POS: dizziness Positive: Headache All Other Systems Reviewed And Are Negative: Yes Physical Exam - Summary Physical Exam Summary: VITAL SIGNS: Reviewed. GENERAL: Patient is a fragile male who is lying comfortable in the stretcher. Patient is not in any acute respiratory distress. HEAD AND FACE: Abrasion on left temporal area. EYES: PERRLA, EOMI x 2, No injected conjunctiva, no nystagmus. No photophobia. EARS: Hearing grossly intact. Ear canals and tympanic membranes are within normal limits. MOUTH: Oropharynx within normal limits. NECK: Supple, trachea is midline, no adenopathy, no JVD, no carotid bruit, no c- spine tenderness, neck with full ROM. No meningeal signs, no Kernig's or brudzinskis signs. CHEST: Symmetric, no tenderness at palpation LUNGS: Clear to auscultation bilaterally. No wheezing or crackles. CVS: Regular rate and rhythm, S1 and S2 present, no murmurs or gallops appreciated. ABDOMEN: Soft, non-tender. No signs of distention. No rebound no guarding, and no masses palpated. Bowel sounds are normal. EXTREMITIES: FROM in all major joints, no edema, no cyanosis or clubbing. NEURO: Alert and oriented x 3. Pt is slow to respond. SKIN: Dry and warm GCS: 13 Triage Information Reviewed: Yes Vital Signs On Initial Exam: Initial Vitals Temp Pulse Resp BP Pulse Ox 97.3 F 62 16 160/74 92 08/04/17 14:24 08/04/17 14:24 08/04/17 14:24 08/04/17 14:24 08/04/17 14:24 Vital Signs Reviewed: Yes Diagnostics - Vital Signs Vital Signs Temp Pulse Resp BP Pulse Ox 08/04/17 14:24 97.3 F 62 16 160/74 92 - Laboratory Result Diagrams: 08/04/17 15:10 08/04/17 15:10 Lab Statement: Any lab studies that have been ordered have been reviewed, and results considered in the medical decision making process. - CT Brain CT CT Interpretation: Positive (See Comments) - IMPRESSION: 1. Acute left frontoparietal subdural hematoma with 1 cm of subfalcine shift to the right and partial effacement of the basal cisterns. 2. There is a small subarachnoid component along the insula and left temporal lobe. 3. There is a small right frontal and left falcine subdural hematoma. Dr. Perez has reviewed this radiology report. CT Interpretation Completed By: Radiologist Cervical spine CT CT Interpretation: No Acute Changes - IMPRESSION: 1. Extremely limited exam, no gross evidence for fracture. 2. Mild to moderate cervical spondylosis. 3. Left- sided subdural hematoma as previously described. Dr. Perez has reviewed this radiology report. CT Interpretation Completed By: Radiologist - EKG 15:33 Cardiac Rate: Bradycardia - at 59 bpm EKG Rhythm: Atrial Fibrillation EKG Interpretation: RBBB. Re-Evaluation - Re-Evaluation First Eval Re-Evaluation Time: 15:05 Comment: I reviewed the brain CT results with the pt's . Second Eval Re-Evaluation Time: 15:35 Comment: Pt's family was updated that Dr. Saldaña is coming to see the pt. Third Eval Re-Evaluation Time: 16:06 Comment: Per surgical PA, Dr. Saldaña is on his way. Fourth Eval Re-Evaluation Time: 16:10 Comment: Dr. Saldaña in to see the pt. Fifth Eval Re-Evaluation Time: 16:30 Comment: Dr. Saldaña will take the pt to the OR. Head Injury Course/Dx Assessment/Plan: Pt is 71 y/o male, currently on baby aspirin, who presents with a head injury s/p mechanical fall today. reports the pt hit the left side of his head on the sidewalk. denies LOC as pt was alert. Pt currently c/o headache, dizziness, nausea. Immediately after the pt arrived to the ED I examined the pt and he is alert and oriented x3, but slow to respond. Pt was placed on personnel monitor and an IV access was obtained. We sent the pt to get a brain CT. Brain CT shows 1. Acute left frontoparietal subdural hematoma with 1 cm of subfalcine shift to the right and partial effacement of the basal cisterns. 2. There is a small subarachnoid component along the insula and left temporal lobe. 3. There is a small right frontal and left falcine subdural hematoma. Cervical spine CT: 1. Extremely limited exam, no gross evidence for fracture. 2. Mild to moderate cervical spondylosis. 3. Left-sided subdural hematoma as previously described. The blood work shows pt has slight anemia and renal failure. I discussed the case with Dr. Saldaña, neurosurgeon, and he came and saw the pt in the ED. Dr. Saldaña admitted the pt to his services for possible surgery. Pt was given Keppra to prevent seizures. - Diagnoses Provider Diagnoses: Subdural hematoma - Physician Notifications Discussed Care Of Patient With: Ramiro Goldsmith Time Discussed With Above Provider: 15:06 Instructed by Provider To: Other - Dr. Goldsmith, radiologist, discussed the brain CT results with me. [15:29] I discussed case with Dr. Saldaña, neurosurgeon, who reports he will come see the pt in the ED. [16:04] I discussed pt care with Dr. Velásquez, hospitalist, who states the pt is a high risk. - Critical Care Time Critical Care Time: 75-104 min Discharge - Sign-Out/Discharge Documenting (check all that apply): Discharge/Admit/Transfer - Admit - Discharge Plan Condition: Fair Disposition: ADMITTED TO [facility] The documentation as recorded by the John prince Angela accurately reflects the service I personally performed and the decisions made by me, Alex Perez MD.
== END 2017-08-06 15:50 | disposition expired | DRG 25 ==
LOC: ED 14:21 → ICU 16:15 → UNDOADMIN 16:15 → OR 17:10 → ICU 20:53
PROVIDERS: ADMIT Internal Medicine Critical Care Medicine; ATTEND Internal Medicine Critical Care Medicine
PROC: 02HV33Z Insertion of Infusion Device into Superior Vena Cava, Percutaneous Approach (ICD-10-PCS; 2017-08-04)
PROC: 5A1945Z Respiratory Ventilation, 24-96 Consecutive Hours (ICD-10-PCS; 2017-08-04)
PROC: 0BH17EZ Insertion of Endotracheal Airway into Trachea, Via Natural or Artificial Opening (ICD-10-PCS; 2017-08-04)
PROC: 00C40ZZ Extirpation of Matter from Intracranial Subdural Space, Open Approach (ICD-10-PCS; principal; 2017-08-04 17:21)
DX: S06.5X9A Traumatic subdural hemorrhage with loss of consciousness of unspecified duration, initial encounter (principal); J96.01 Acute respiratory failure with hypoxia; G93.40 Encephalopathy, unspecified; G93.5 Compression of brain; G93.6 Cerebral edema; N18.4 Chronic kidney disease, stage 4 (severe); I38 Endocarditis, valve unspecified; N17.9 Acute kidney failure, unspecified; I13.0 Hypertensive heart and chronic kidney disease with heart failure and stage 1 through stage 4 chronic kidney disease, or unspecified chronic kidney disease; I50.32 Chronic diastolic (congestive) heart failure; W19.XXXA Unspecified fall, initial encounter; I27.20 Pulmonary hypertension, unspecified; I48.2 Chronic atrial fibrillation; I25.10 Atherosclerotic heart disease of native coronary artery without angina pectoris; M47.812 Spondylosis without myelopathy or radiculopathy, cervical region; E78.5 Hyperlipidemia, unspecified; E11.21 Type 2 diabetes mellitus with diabetic nephropathy; Y92.238 Other place in hospital as the place of occurrence of the external cause; K21.9 Gastro-esophageal reflux disease without esophagitis; M19.90 Unspecified osteoarthritis, unspecified site; E78.00 Pure hypercholesterolemia, unspecified; M10.9 Gout, unspecified; H91.90 Unspecified hearing loss, unspecified ear; E11.22 Type 2 diabetes mellitus with diabetic chronic kidney disease; R40.20 Unspecified coma; I08.3 Combined rheumatic disorders of mitral, aortic and tricuspid valves; N18.3 Chronic kidney disease, stage 3 (moderate); G47.33 Obstructive sleep apnea (adult) (pediatric); S06.6X9A Traumatic subarachnoid hemorrhage with loss of consciousness of unspecified duration, initial encounter; E11.65 Type 2 diabetes mellitus with hyperglycemia; Z66 Do not resuscitate; R56.9 Unspecified convulsions; Z89.422 Acquired absence of other left toe(s); Z95.1 Presence of aortocoronary bypass graft; Y99.8 Other external cause status; Z80.41 Family history of malignant neoplasm of ovary; Z95.5 Presence of coronary angioplasty implant and graft; Z95.2 Presence of prosthetic heart valve; Z88.1 Allergy status to other antibiotic agents; Z80.9 Family history of malignant neoplasm, unspecified; Z82.3 Family history of stroke; Z82.49 Family history of ischemic heart disease and other diseases of the circulatory system; Z87.891 Personal history of nicotine dependence
CPT/HCPCS: 36415; 70450; 71045; 72125; 80048; 80053; 80320; 82803; 83605; 83735; 84100; 84300; 84484; 85025; 85027; 85610; 85730; 86850; 86900; 86901; 86922; 87641; 88304; 93005; 94002; 94003; 99285; A9270-GY; C1713; C1751; C1776; G0480; J0690; J1815; J2001; J2250; J2270; J2704; J3010; J3475; J3490; P9035; P9040